=== PATIENT | male | born 1985 | race Two or more races ===

== ENCOUNTER 2023-10-04 10:00 | Outpatient (AMB) | payer OTHER, SELFPAY ==
[2023-10-04 10:21] VITALS: BP 155/84; PULSE 134; O2SAT 97; BMI 31.9
--- NOTE | 2023-10-04 10:21 | A.OFFPC_ITS ---
Vital Signs 10/04/23 10:21 Height 5 ft 7 in Weight 204 lb BMI 31.9 BP 155/84 H Blood Pressure Location Lt brachial Position Sitting Pulse 134 H Pulse Source Pulse Oximeter Pulse Oximetry (%) 97 Oxygen Delivery Method Room Air Intake Visit Reasons: est care Intake Note: Patient is here as a new patient, would like to talk about blood tests, and stomach problems, and rash on ear and face upper partws of the body. 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 Prior PCP:?No prior recent pcp Acute issue(s): Abd. pain - Acid reflux. Sxs Takes malox. Rash HTN & Tachycardia -He notes blood pressure is usually high in the morning but goes down in the evening. -Denies any chest pain. PMHx: HTN, Hepatitis SurgHx: None FHx: Mom: Asthma SocHx: Nonsmoker. EtOH very rarely. No drugs. PFSH Medical History (Updated 10/04/23 @ 11:43 by Anup Vidales) Hypertension Liver problem Family History (Updated 10/04/23 @ 10:41 by Kristin Delatorre [facility]) Mother Asthma Social History Household Members: Family Housing: House Are you a primary anesthesiologist and critical care to a significant other at home: No Do you presently have visiting nurse or other home services: No 75 years or older and lives alone: No Alcohol intake: current Comment: on occasion Patient Tobacco Use Status: Former Tobacco user e-Cigarette/Vaping Use: Never Used service: No Current occupational status: previously employed Cognitive needs: No Hearing needs: No Vision needs: No Review of Systems Const Denies chills, Denies fatigue, Denies fever(s), Denies headache(s) and Denies weakness ENT Denies dizziness and Denies headache(s) Card Denies chest pain, Denies lightheadedness, Denies dyspnea and Denies other (Palpitations) Resp Denies cough, Denies dyspnea, Denies wheezing and Denies other ( shortness of breath) GI Reports abdominal pain Musc Denies numbness and Denies tingling Skin/Breast Reports rash Neuro Denies dizziness, Denies headache(s), Denies numbness, Denies tingling, Denies paresthesias and Denies weakness Psych Denies anxiety and Denies depression Endo Denies fatigue Aller/Immun Denies wheezing Physical exam (Primary Care) Vital Signs: Last Vital Signs Pulse 134 H 10/04/23 10:21 BP 155/84 H 10/04/23 10:21 Pulse Ox 97 10/04/23 10:21 Oxygen Delivery Method Room Air 10/04/23 10:21 BMI result Body Mass Index 31.9 Tobacco/Smoking Status: Tobacco use Status Tobacco use date assessed 10/04/23 10/04/23 10:35 Patient Tobacco Use Status Former Tobacco user 10/04/23 10:45 e-Cigarette/Vaping Use Never Used 10/04/23 10:45 Const General: no acute distress and well developed Nutritional Appearance: well nourished Orientation/consciousness: patient oriented x3 [facility] Head: Yes normocephalic and Yes atraumatic Eyes General: appearance normal, both eyes and all related structures Pupils: Equal, round and reactive pupils present EOM: EOMs intact bilaterally Resp Effort & Inspection: normal respiratory effort Auscultation: clear to auscultation bilaterally Cardio Rate: tachycardic Rhythm: regular rhythm Heart sounds: S1 normal heart sound present, S2 normal heart sound present, no gallops, no murmurs and no rubs Neuro General: patient oriented x3 and gait normal Cranial nerves: Yes Equal, round and reactive pupils present Psych Affect: normal affect Assessment and Plan Assessment & Plan (1) Tachycardia: Code(s): R00.0 - Tachycardia, unspecified Plan: Tachycardia?in?the?120s?and?130s.??Also?sign ificantly?elevated?blood?pressure.?No?chest?pain.??No?shortness?of?breath. EKG?shows?a?sinus?tachycardia?with?left?atrial?enlargement?and?left?ventricular? hypertrophy, incomplete?right?bundle-branch?block. Starting?him?on?metoprolol?for?hypertension?and?rate?control. Referring?him?to?Cardiology (2) Hypertension: Code(s): I10 - Essential (primary) hypertension Plan: Significantly?elevated?blood?pressure?and?patient?notes?that?he?has?been?on?anti hypertensive?medication?in?the?distant?past. Also?has?atrial?enlargement?and?LVH?which?are?likely?secondary?to?this. Start?metoprolol?ER?50mg daily (3) Left ventricular hypertrophy: Code(s): I51.7 - Cardiomegaly Plan: Likely?secondary?to?longstanding?hypertension. Working?on?controlling?his?blood?pressure?and?heart?rate. Referred?to?cardiology (4) Acid reflux: Code(s): K21.9 - Gastro-esophageal reflux disease without esophagitis Plan: Trial?omeprazole (5) Rash: Code(s): R21 - Rash and other nonspecific skin eruption Plan: No?current?rash?but?skin?on?forehead?is?mildly?erythematous?and?dry. Possible?eczema?or?allergic?reaction?to?exposure He?will?let?me?know?if?this?occurs?again Meantime?he?can?use?a?moisturizer?that?has?no?dyes?or?perfumes (6) History of hepatitis: Code(s): Z86.19 - Personal history of other infectious and parasitic diseases Plan: Check?hepatitis?labs?and?LFTs (7) Laboratory exam ordered as part of routine general medical examination: Code(s): Z00.00 - Encounter for general adult medical examination without abnormal findings Plan: Check?labs Orders: Orders Lipid Panel Today Z00.00 - Encounter for general adult medical examination without abnormal findings TSH reflex Free T4 Today Z00.00 - Encounter for general adult medical examination without abnormal findings Vitamin D 25-OH Total Today E55.9 - Vitamin D deficiency, unspecified Hepatitis B,C Profile Today Z11.3 - Encounter for screening for infections with a predominantly sexual mode of transmission Syphilis Screen Today Z11.3 - Encounter for screening for infections with a predominantly sexual mode of transmission CT NG by PCR Today Z11.3 - Encounter for screening for infections with a predominantly sexual mode of transmission Comprehensive [place]. Panel Fast Today Z00.00 - Encounter for general adult medical examination without abnormal findings Microalbumin, Random (w Creat) Today I10 - Essential (primary) hypertension UA and rflx microscopic Today Z00.00 - Encounter for general adult medical examination without abnormal findings HIV Ab/Ag Today Z11.3 - Encounter for screening for infections with a predominantly sexual mode of transmission Troponin-I High Sensitivity Today R00.0 - Tachycardia, unspecified Referrals Cardiology Referral I10 - Essential (primary) hypertension, I51.7 - Cardiomegaly, R00.0 - Tachycardia, unspecified, R94.31 - Abnormal electrocardiogram [ECG] [EKG] Medications: New metoprolol succinate ER 50 mg PO DAILY 30 tabs 2RF 30 days I10 - Essential (primary) hypertension Coding Level of Care Code New Pt Level 4 (27704) Diagnoses Tachycardia R00.0 Hypertension I10 Left ventricular hypertrophy I51.7 Acid reflux K21.9 Rash R21 History of hepatitis Z86.19 Laboratory exam ordered as part of routine general medical examination Z00.00
== END 2023-10-04 11:20 | disposition home or self-care (01) ==
PROVIDERS: PCP Family Medicine; Visit Provider Family Medicine
DX: R00.0 Tachycardia, unspecified (principal); I10 Essential (primary) hypertension; I51.7 Cardiomegaly; K21.9 Gastro-esophageal reflux disease without esophagitis; R21 Rash and other nonspecific skin eruption; Z86.19 Personal history of other infectious and parasitic diseases; Z00.00 Encounter for general adult medical examination without abnormal findings
CPT/HCPCS: 99204

== ENCOUNTER 2023-10-16 09:15 | Outpatient (REF) | payer OTHER, SELFPAY ==
[2023-10-16 10:55] LABS: Troponin-I High Sensitivity < 2.7 ng/L (<3.5-35.0)
[2023-10-16 11:01] LABS: Alanine Aminotransferase 190 U/L (0-40); Albumin Level 4.6 g/dL (3.5-5.0); Alkaline Phosphatase 175 U/L (39-117); Anion Gap 14 (12-20); Aspartate Amino Transferase 166 U/L (5-37); Bilirubin Total 2.8 mg/dL (0.0-1.0); Blood Urea Nitrogen 7 mg/dL (9-16); Calcium 10.4 mg/dL (8.4-10.2); Carbon Dioxide 27 mmol/L (22-29); Chloride 102 mmol/L (96-108); Cholesterol 333 mg/dL (<200); Estimated Glomerular Filt Rate > 60; Glucose Fasting 118 mg/dL (60-99); HDL Cholesterol 21 mg/dL (>40); LDL Cholesterol Calculated 239 mg/dL (<100); Potassium 4.6 mmol/L (3.3-5.1); Sodium 138 mmol/L (135-145); Total Protein 8.4 g/dL (6.5-8.0); Triglycerides 369 mg/dL (<150)
[2023-10-16 11:19] LABS: TSH reflex Free T4 3.06 uIU/mL (0.32-4.0); Vitamin D 25-OH Total 29.2 ng/mL (>30)
[2023-10-16 11:29] LABS: Appearance Urine Clear; Color Urine Dark Yellow; Glucose Urine UA Negative (Negative); Leukocyte Esterase Urine Trace (Negative); Nitrite Urine Positive (Negative); UMIC TRIGGER UA YES; Urine Blood Negative (Negative); Urine Ketones Trace mg/dL (Negative); Urine Protein Negative (Neg-Trace)
[2023-10-16 11:30] LABS: Bacteria Urine None Seen (None Seen); Hyaline Casts Urine 0-2 /LPF (0-2); RBC Urine 0-2 /HPF (0-2); Squamous Epithelial Cell Urine 0-2 /HPF (0-2); WBC Urine 0-5 /HPF (0-5)
[2023-10-16 12:41] LABS: Creatinine Urine 232.26 mg/dL; Microalbum/Creatinine Ratio Ur 5.5 ug/mg cr (<30)
[2023-10-16 15:03] LABS: Syphilis Screen Nonreactive (Nonreactive)
[2023-10-17 08:15] LABS: HBS Num1 0.51 mIU/mL (0-7.99); HBc Num1 0.08 S/CO (0.00-0.79); HBsAGNum1 0.41 S/CO (0.00-0.99); HIV AB/AG Nonreactive (Nonreactive); HIV Num 1 0.04 S/CO (0.00-0.99); Hepatitis B Core Antibody Nonreactive (Nonreactive); Hepatitis B Surface Antigen Negative (Negative); ~HepC Num1 0.14 S/CO (0.00-0.79); ~Hepatitis B Surface Antibody NONREACTIVE (Nonreactive); ~Hepatitis C Antibody Nonreactive (Nonreactive)
[2023-10-23 05:28] LABS: Metanephrine, Free 37 pg/mL (<=57); Normetanephrines, Free 135 pg/mL (<=148); Total Metanephrine, Free 172 pg/mL (<=205)
== END 2023-10-16 09:16 | disposition home or self-care (01) ==
LOC: HO.WFDLDS 09:15
PROVIDERS: Visit Provider Family Medicine
DX: Z00.00 Encounter for general adult medical examination without abnormal findings (principal); R00.0 Tachycardia, unspecified; I10 Essential (primary) hypertension; E55.9 Vitamin D deficiency, unspecified; R30.0 Dysuria; Z11.3 Encounter for screening for infections with a predominantly sexual mode of transmission
CPT/HCPCS: 36415; 80053; 80061; 81001; 82043; 82306; 82570; 83835; 84443; 84484; 86704; 86706; 86780; 86803; 87340; 87389

== ENCOUNTER 2023-10-18 11:24 | Outpatient (AMB) | payer OTHER, SELFPAY ==
--- NOTE | 2023-10-18 11:28 | MHC.PC.OV ---
Vital Signs 10/18/23 11:29 Height 57 ft BP 132/72 Blood Pressure Location Lt brachial Position Sitting Pulse 102 H Pulse Source Pulse Oximeter Pulse Oximetry (%) 98 Oxygen Delivery Method Room Air Intake Visit Reasons: f/u abnormal ekg, labs+ NEEDS PHQ9+THRIVE Intake Note: Patient is here for follow up on labs, abnormal EKG. Clinical Biochemical Geneticist Required: Yes Clinical Biochemical Geneticist Name: Arianna [id number] Allergies No Known Allergies Allergy (Verified 10/04/23 10:33) Tobacco use date assessed: 10/04/23 HPI f/u abnormal ekg, labs+ NEEDS PHQ9+THRIVE HPI Details 38 y/o male presents to f/u tachycardia and hypertension with abnormal EKG, labs. Started him on metoprolol and referred him to Cardiology. Labs were drawn 10/16/23. Reviewed labs with pt. Elevated fasting glucose of 118. Elevated liver enzymes - AST 166 and ALT 190. Triglycerides 369. TC 333. LDL 239. HDL low at 21. Vitamin D mildly low at 29.2. Blood pressure today 132/72, 102p. He states he has been taking metoprolol 50mg daily. [facility] Medical History Hypertension Liver problem Family History Mother Asthma Social History Household Members: Family Housing: House Are you a primary transitional care liaison to a significant other at home: No Do you presently have visiting nurse or other home services: No 75 years or older and lives alone: No Alcohol intake: current Comment: on occasion Patient Tobacco Use Status: Former Tobacco user e-Cigarette/Vaping Use: Never Used service: No Current occupational status: previously employed Cognitive needs: No Hearing needs: No Vision needs: No Questionnaire PHQ-9 Over the last 2 weeks, how often have you been bothered by any of the following problems? 1. Little interest or pleasure in doing things: several days 2. Feeling down, depressed, or hopeless: several days 3. Trouble falling or staying asleep, or sleeping too much: nearly every day 4. Feeling tired or having little energy: several days 5. Poor appetite or overeating: not at all 6. Feeling bad about yourself - or that you are a failure or have let yourself or your family down: not at all 7. Trouble concentrating on things, such as reading the newspaper or watching television: not at all 8. Moving or speaking so slowly that other people could have noticed. Or the opposite - being so fidgety or restless that you have been moving around a lot more than usual: not at all 9. Thoughts that you would be better off or of hurting yourself in some way: not at all Total score: 6 Source: Developed by Drs. Darryn Hernandez, Tammi Mckeon, Pankaj Wallace and colleagues, with an educational ventura from [employer]. Thrive Questionnaire Date Thrive assessed: 10/18/23 I am a: Patient What is your living situation today?: I do not have a steady places to live Within the past 12 months, did the food you bought not last and you didn't have the money to get more?: Never true Within the past 12 months, did you worry whether your food would run out before you got money to buy more?: Never true Do you have trouble paying for medicines?: No Do you have trouble getting transportation to medical appointments?: No Do you have trouble paying your heating and electricity bill?: No Do you have trouble taking care of your child, family member or friend?: No Do you have trouble with day-to-day activities such as bathing, preparing meals, shopping, managing finances, etc.?: No Are you currently unemployed and looking for a job?: Yes Are you interested in more education?: No Review of Systems Const Denies chills, Denies fatigue, Denies fever(s), Denies headache(s) and Denies weakness ENT Denies dizziness and Denies headache(s) Card Denies dyspnea Resp Denies cough, Denies dyspnea, Denies wheezing and Denies other (shortness of breath) Musc Denies numbness and Denies tingling Neuro Denies dizziness, Denies headache(s), Denies numbness, Denies tingling and Denies weakness Psych Denies anxiety and Denies depression Endo Denies fatigue Aller/Immun Denies wheezing Physical exam (Primary Care) Vital Signs: Last Vital Signs Pulse 102 H 10/18/23 11:29 BP 132/72 10/18/23 11:29 Pulse Ox 98 10/18/23 11:29 Oxygen Delivery Method Room Air 10/18/23 11:29 Tobacco/Smoking Status: Tobacco use Status Tobacco use date assessed 10/04/23 10/18/23 11:34 Patient Tobacco Use Status Former Tobacco user 10/18/23 11:34 e-Cigarette/Vaping Use Never Used 10/18/23 11:34 PHQ-9: PHQ-9 Score PHQ-9: Total score 6 10/18/23 12:28 Thrive Assessment: Date of Thrive Assessment Date Thrive assessed 10/18/23 10/18/23 11:54 Const General: well developed; No acute distress Nutritional Appearance: well nourished Orientation/consciousness: patient oriented x3 [facility] Head: Yes normocephalic and Yes atraumatic Eyes General: appearance normal, both eyes and all related structures Pupils: Equal, round and reactive pupils present EOM: EOMs intact bilaterally Resp Effort & Inspection: normal respiratory effort Cardio Rate: tachycardic Neuro General: patient oriented x3 and gait normal Cranial nerves: Yes Equal, round and reactive pupils present Psych Affect: normal affect Assessment and Plan Assessment & Plan (1) Hyperlipidemia: Code(s): E78.5 - Hyperlipidemia, unspecified Plan: LDL?cholesterol?and?triglycerides?are?very?high Encouraged?diet?lower?in?saturated?fats?and?cholesterol Starting?atorvastatin Encouraged?a?diet?lower?in?sugars?as?his?blood?sugars?are?high?and?this?may?be?increasing?his?triglycerides?as?well (2) Elevated liver enzymes: Code(s): R74.8 - Abnormal levels of other serum enzymes (3) Hypertension: Code(s): I10 - Essential (primary) hypertension Plan: Improved on Metoprolol Increasing dose from 50mg daily to 75mg daily (4) Tachycardia: Code(s): R00.0 - Tachycardia, unspecified Plan: Improved on Metoprolol Also checking Holter test & is referred to Cardiology (5) Left ventricular hypertrophy: Code(s): I51.7 - Cardiomegaly Plan: Has referral to Cardiology and has started Metoprolol to control BP (6) Elevated liver enzymes: Code(s): R74.8 - Abnormal levels of other serum enzymes Plan: Check US (7) Sleep apnea: Code(s): G47.30 - Sleep apnea, unspecified Plan: Referred to Sleep Medicine (8) Elevated fasting blood sugar: Code(s): R73.01 - Impaired fasting glucose Plan: Encouraged?a?diet?lower?in?sugars Will?repeat?fasting?blood?sugar If?still?high?will?check?A1c?and?treat?if?necessary. Orders: Orders Comprehensive [place]. Panel Fast Today E78.5 - Hyperlipidemia, unspecified, Z00.00 - Encounter for general adult medical examination without abnormal findings Lipid Panel Today E78.5 - Hyperlipidemia, unspecified, Z00.00 - Encounter for general adult medical examination without abnormal findings US abdomen chand w elastography Today R74.8 - Abnormal levels of other serum enzymes ECG holter monitor 48 hour Today E78.5 - Hyperlipidemia, unspecified Referrals Sleep Medicine Referral G47.30 - Sleep apnea, unspecified Medications: New atorvastatin 80 mg PO BEDTIME 30 days 30 tabs 3RF Changed From metoprolol succinate ER 50 mg PO DAILY 30 days 30 tabs 2RF To metoprolol succinate ER 50mg (1tab) AM and 25mg (1/2 tab) PM orally 2 times a day; 30 days 45 tabs 2RF Coding Level of Care Code Est Pt Level 5 (13274) Diagnoses Hyperlipidemia E78.5 Elevated liver enzymes R74.8 Hypertension I10 Tachycardia R00.0 Left ventricular hypertrophy I51.7 Sleep apnea G47.30 Elevated fasting blood sugar R73.01
[2023-10-18 11:29] VITALS: BP 132/72; PULSE 102; O2SAT 98
== END 2023-10-18 13:05 | disposition home or self-care (01) ==
PROVIDERS: PCP Family Medicine; Visit Provider Family Medicine
DX: E78.5 Hyperlipidemia, unspecified (principal); R74.8 Abnormal levels of other serum enzymes; I10 Essential (primary) hypertension; R00.0 Tachycardia, unspecified; I51.7 Cardiomegaly; G47.30 Sleep apnea, unspecified; R73.01 Impaired fasting glucose
CPT/HCPCS: 99214

== ENCOUNTER 2023-11-23 08:43 | Outpatient (REF) | payer OTHER, SELFPAY ==
--- NOTE | ~2023-11-23 | US_ITS ---
EXAMINATION: US ABDOMEN LIMITED WITH LIVER ELASTOGRAPHY CLINICAL INFORMATION: Abnormal serum enzymes. COMPARISON: None available. TECHNIQUE: Real-time imaging of the abdominal viscera. Noninvasive ultrasound liver fibrosis assessment is performed using Ted ElastPQ point quantification shear wave elastography (2D-SWE) with a C5-2 MHz transducer. Multiple elastography samples are obtained. FINDINGS: PANCREAS: Limited. The visualized pancreatic head and body are normal in appearance. The remainder of the pancreas is obscured from visualization by the overlying bowel gas. LIVER: The liver demonstrates normal size, contour and is increased echogenicity. No focal lesion or intrahepatic biliary duct dilatation. The right lobe measures 17.4 cm in length. The left lobe measures 12.3 cm in length. Portal flow is towards the liver (hepatopetal). Shear wave liver elastography median stiffness is 2.13 m/s (reference: normal median stiffness is 1.3 m/s or less). IQR/median stiffness to assess sampling precision is 0.15 (reference: good quality data set is IQR/median stiffness of 0.15 or less). GALLBLADDER: Normal. The gallbladder is physiologically distended without evidence of stones, sludge, polyps, wall thickening or pericholecystic fluid. COMMON BILE DUCT: Borderline dilated, measuring 0.8 cm in diameter. RIGHT KIDNEY: Normal. No hydronephrosis. No renal calculi or focal parenchymal lesions. The kidney measures 11.3 cm in maximum dimension. FREE FLUID: None. US/US abdomen chand w elastography IMPRESSION: 1. There is generalized increase in hepatic echotexture, consistent with fatty infiltration or hepatocellular disease. Please correlate clinically. No focal hepatic mass or intrahepatic biliary dilatation is seen. 2. Liver elastography: Measuremensts are consistent with compensated advanced chronic liver disease. 3. The common bile duct is borderline dilated, with a caliber of 8 mm. No choledocholith, intrahepatic biliary ductal dilatation or pancreatic mass is seen. This could be further evaluated with abdominal MRI/MRCP, if clinically indicated. 4. Technically limited ultrasound examination of the pancreatic tail. REFERENCE: Society of Radiologists in Ultrasound Liver Stiffness Thresholds (2020): LIVER STIFFNESS THRESHOLDS: *Liver Stiffness equal or less than 1.3 m/s: High probability of being normal. *Liver Stiffness less than 1.7 m/s: In the absence of other known clinical signs, rules out compensated advanced chronic liver disease. *Liver Stiffness 1.7-2.1 m/s: Suggestive of compensated advanced chronic liver disease but need further test for confirmation. *Liver Stiffness over 2.1 m/s: Rules in compensated advanced chronic liver disease. *Liver Stiffness over 2.4 m/s: Suggestive of clinically significant portal hypertension. QUALITY OF DATA SET: *IQR/Median value equal or less than 0.15 implies a quality data set. *IQR/Median value over 0.15 implies a poor quality data set. SIGNIFICANT CHANGE FROM PRIOR EXAM: Significant change if liver stiffness measurement is 10% or greater from prior exam. OTHER CONSIDERATIONS: The stage of liver fibrosis may be overestimated in the setting of acute hepatitis, liver inflammation, elevated liver function tests, hepatic vascular congestion, obstructive cholestasis, non-fasting state, and infiltrative diseases such as amyloidosis and lymphoma. In some patients with NAFLD, the liver stiffness thresholds for compensated advanced chronic liver disease may be lower. In causes other than viral hepatitis and NAFLD, liver stiffness thresholds are not well established.
[2023-11-23 09:28] LABS: Appearance Urine Clear; Color Urine Yellow; Glucose Urine UA Negative (Negative); Leukocyte Esterase Urine Negative (Negative); Nitrite Urine Negative (Negative); PH 5.5 (5.0-9.0); Specific Gravity - Urine 1.015 (1.005-1.025); Urine Blood Negative (Negative); Urine Ketones Negative (Negative); Urine Protein Negative (Neg-Trace)
[2023-11-23 09:52] LABS: Alanine Aminotransferase 79 U/L (0-40); Albumin Level 4.6 g/dL (3.5-5.0); Alkaline Phosphatase 153 U/L (39-117); Anion Gap 11 (12-20); Aspartate Amino Transferase 47 U/L (5-37); Bilirubin Total 0.8 mg/dL (0.0-1.0); Blood Urea Nitrogen 10 mg/dL (9-16); Carbon Dioxide 28 mmol/L (22-29); Chloride 106 mmol/L (96-108); Cholesterol 123 mg/dL (<200); Estimated Glomerular Filt Rate > 60; Glucose Fasting 97 mg/dL (60-99); HDL Cholesterol 51 mg/dL (>40); LDL Cholesterol Calculated 31 mg/dL (<100); Potassium 4.4 mmol/L (3.3-5.1); Sodium 141 mmol/L (135-145); Total Protein 8.1 g/dL (6.5-8.0); Triglycerides 205 mg/dL (<150)
== END 2023-11-23 08:44 | disposition home or self-care (01) ==
LOC: HO.US 08:43
PROVIDERS: Visit Provider Family Medicine
DX: E78.5 Hyperlipidemia, unspecified (principal); R74.8 Abnormal levels of other serum enzymes; Z00.00 Encounter for general adult medical examination without abnormal findings
CPT/HCPCS: 36415; 76705; 76981; 80053; 80061; 81003

== ENCOUNTER 2023-11-29 09:21 | Outpatient (AMB) | payer OTHER, SELFPAY ==
[2023-11-29 09:28] VITALS: BP 128/76; PULSE 81; O2SAT 97
--- NOTE | 2023-11-29 09:28 | MHC.PC.OV ---
Vital Signs 11/29/23 09:28 Height 5 ft 7 in BP 128/76 Blood Pressure Location Rt brachial Pulse 81 Pulse Source Pulse Oximeter Pulse Oximetry (%) 97 Oxygen Delivery Method Room Air Intake Visit Reasons: f/u htn,tachycardia,chronic conditions Intake Note: Patient is here for follow up on hypertension, tachycardia, and chronic conditions. Drywall Applicator Required: Yes Drywall Applicator Name: Kale [id number] Allergies No Known Allergies Allergy (Verified 11/29/23 09:41) Tobacco use date assessed: 11/29/23 Dental Screening Dental Screen Date: 11/29/23 Did you have a dental visit in the last 12 months?: Yes Did you have a dental problem in the last 6 months where you did not have access to dental care?: No Was dental information given to patient?: Patient has dentist HPI f/u htn,tachycardia,chronic conditions HPI Details 38 y/o male presents to f/u hypertension, tachycardia and chronic conditions. Had started him on artovastatin and metoprolol. Blood pressure today 128/76, 81p. Labs were drawn 11/23/23. Elevated liver enzymes but improved - AST 47, ALT 79. Triglycerides 205. TC 123. LDL improved from 239 to 31. HDL 51. PFSH Medical History Hypertension Liver problem Family History Mother Asthma Social History Household Members: Family Housing: House Are you a primary home care associate to a significant other at home: No Do you presently have visiting nurse or other home services: No 75 years or older and lives alone: No Alcohol intake: current Comment: on occasion Patient Tobacco Use Status: Former Tobacco user e-Cigarette/Vaping Use: Never Used service: No Current occupational status: previously employed Cognitive needs: No Hearing needs: No Vision needs: No Questionnaire Thrive Questionnaire Date Thrive assessed: 10/18/23 AUDIT C Alcohol Use Questionnaire (AUDIT-C) 1. How often do you have a drink containing alcohol?: Monthly or less 2. How many drinks containing alcohol do you have on a typical day when you are drinking?: 3 or 4 3. How often do you have six or more drinks on one occasion?: Never Total Score: 2 IAN-7 AMB Questionnaire IAN-7 Date IAN - 7 assessed: 11/29/23 Feeling nervous, anxious, or on edge: 1 = Several days Not being able to stop or control worryin = Several days Worrying too much about different things: 0 = Not at all Trouble relaxin = Several days Being so restless that it is hard to sit still: 0 = Not at all Becoming easily annoyed or irritable: 0 = Not at all Feeling afraid as if something awful might happen: 0 = Not at all Total IAN-7 score (0-4 normal; 5-9 mild; 10-14 moderate; 15-21 severe): 3 Source: Developed by Drs. Darryn Hernandez, Tammi Mckeon, Pankaj Wallace and colleagues, with an educational ventura from [employer]. Physical exam (Primary Care) Vital Signs: Last Vital Signs Pulse 81 11/29/23 09:28 BP 128/76 11/29/23 09:28 Pulse Ox 97 11/29/23 09:28 Oxygen Delivery Method Room Air 11/29/23 09:28 Tobacco/Smoking Status: Tobacco use Status Tobacco use date assessed 11/29/23 11/29/23 09:44 Patient Tobacco Use Status Former Tobacco user 11/29/23 09:31 e-Cigarette/Vaping Use Never Used 11/29/23 09:31 Thrive Assessment: Date of Thrive Assessment Date Thrive assessed 10/18/23 11/29/23 09:31 Assessment and Plan Assessment & Plan (1) Hypertension: Code(s): I10 - Essential (primary) hypertension Plan: Pressure?is?much?improved?on?current?regimen?of?metoprolol.??Goal?is?less?than?140/90. Continue?current?medication?regimen (2) Left ventricular hypertrophy: Code(s): I51.7 - Cardiomegaly Plan: Continue?to?keep?blood?pressure?controlled Follow-up?with?Cardiology (3) Elevated liver enzymes: Code(s): R74.8 - Abnormal levels of other serum enzymes Plan: Liver?enzymes?are?improving.??I?encouraged?weight?loss. Ultrasound?had?shown?evidence?of?fatty?liver Will?recheck?again?in?a?few?months (4) Hyperlipidemia: Code(s): E78.5 - Hyperlipidemia, unspecified Plan: Much?improved?on?atorvastatin Continue?current?medication?regimen (5) Tachycardia: Code(s): R00.0 - Tachycardia, unspecified Plan: Controlled?with?metoprolol Continue (6) Low vitamin D level: Code(s): R79.89 - Other specified abnormal findings of blood chemistry Plan: Mildly?low?vitamin-D?level. He?can?use?a?daily?vitamin?supplement?that?has?vitamin-D. Orders: Orders Comprehensive [place]. Panel Fast Today R74.8 - Abnormal levels of other serum enzymes, Z00.00 - Encounter for general adult medical examination without abnormal findings Lipid Panel Today E78.5 - Hyperlipidemia, unspecified, Z00.00 - Encounter for general adult medical examination without abnormal findings Coding Level of Care Code Est Pt Level 4 (84810) Diagnoses Hypertension I10 Left ventricular hypertrophy I51.7 Elevated liver enzymes R74.8 Hyperlipidemia E78.5 Tachycardia R00.0 Low vitamin D level R79.89
== END 2023-11-29 10:45 | disposition home or self-care (01) ==
PROVIDERS: PCP Family Medicine; Visit Provider Family Medicine
DX: I10 Essential (primary) hypertension (principal); I51.7 Cardiomegaly; R74.8 Abnormal levels of other serum enzymes; E78.5 Hyperlipidemia, unspecified; R00.0 Tachycardia, unspecified; R79.89 Other specified abnormal findings of blood chemistry
CPT/HCPCS: 99214

== ENCOUNTER 2024-02-27 12:05 | Outpatient (REF) | payer OTHER, SELFPAY ==
[2024-02-27 13:08] LABS: Alanine Aminotransferase 367 U/L (0-40); Albumin Level 4.7 g/dL (3.5-5.0); Alkaline Phosphatase 240 U/L (39-117); Anion Gap 12 (12-20); Aspartate Amino Transferase 323 U/L (5-37); Bilirubin Total 2.7 mg/dL (0.0-1.0); Blood Urea Nitrogen 5 mg/dL (9-16); Calcium 10.2 mg/dL (8.4-10.2); Carbon Dioxide 32 mmol/L (22-29); Chloride 102 mmol/L (96-108); Cholesterol 177 mg/dL (<200); Estimated Glomerular Filt Rate > 60; Glucose Fasting 127 mg/dL (60-99); HDL Cholesterol 29 mg/dL (>40); LDL Cholesterol Calculated 101 mg/dL (<100); Potassium 4.3 mmol/L (3.3-5.1); Sodium 142 mmol/L (135-145); Total Protein 8.3 g/dL (6.5-8.0); Triglycerides 237 mg/dL (<150)
== END 2024-02-27 12:06 | disposition home or self-care (01) ==
LOC: HO.LAB 12:05
PROVIDERS: PCP Family Medicine; Visit Provider Family Medicine
DX: Z00.00 Encounter for general adult medical examination without abnormal findings (principal); E78.5 Hyperlipidemia, unspecified; R74.8 Abnormal levels of other serum enzymes
CPT/HCPCS: 36415; 80053; 80061

== ENCOUNTER 2024-02-28 10:55 | Outpatient (AMB) | payer OTHER, SELFPAY ==
[2024-02-28 11:01] VITALS: BP 132/84; PULSE 97; O2SAT 98; BMI 32.6
--- NOTE | 2024-02-28 11:01 | MHC.PC.OV ---
Vital Signs 02/28/24 11:01 Height 5 ft 7 in Weight 208 lb BMI 32.6 BP 132/84 Blood Pressure Location Lt brachial Position Sitting Pulse 97 Pulse Source Pulse Oximeter Pulse Oximetry (%) 98 Oxygen Delivery Method Room Air Intake Visit Reasons: f/u elev liver enzymes and hypercholesterolemia Intake Note: Patient is here for follow up on liver enzymes and hypercholeterolemia. Patient is concerned about his stomach, heartburn sensation and is wondering about his pancreas Habilitation Training Specialist Required: Yes Habilitation Training Specialist Language: Northern Irish Habilitation Training Specialist Name: Arianna Allergies No Known Allergies Allergy (Verified 02/28/24 11:06) Tobacco use date assessed: 02/28/24 Dental Screening Dental Screen Date: 11/29/23 HPI f/u elev liver enzymes and hypercholesterolemia HPI Details 39 y/o male presents to f/u elevated liver enzymes, hypercholesterolemia, hypertension and tachycardia. Had recommended weight loss and per pt had an appt. with Cardiology in December. Labs were drawn 02/27/24. Reviewed labs with pt. Elevated fasting glucose of 127. Liver enzymes elevated - AST 323, ALT 367. Triglycerides 237. TC 177. LDL 101. HDL low at 29. He is on artovastatin 80mg. Blood pressure today 132/84. He is on metoprolol. He has an appt. with cardiology in about 5 days. HPI Comments History of Present Illness Details Documentation assistance for Denys Arroyo MD, was provided by Anup Vidales, [employer] on 02/28/2024 11:17 AM EST. I, Dr. Arroyo, have read, observed, and verified documentation. 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 Darryn Hernandez, Tammi Mckeon, Pankaj Wallace and colleagues, with an educational vent[place] from [employer] [place]. Review of Systems Const Denies chills, Denies fatigue, Denies fever(s), Denies headache(s) and Denies weakness ENT Denies dizziness and Denies headache(s) Card Denies chest pain, Denies lightheadedness, Denies dyspnea and Denies other (Palpitations) Resp Denies cough, Denies dyspnea, Denies wheezing and Denies other ( shortness of breath) Musc Denies numbness and Denies tingling Neuro Denies dizziness, Denies headache(s), Denies numbness, Denies tingling, Denies paresthesias and Denies weakness Psych Denies anxiety and Denies depression Endo Denies fatigue Aller/Immun Denies wheezing Physical exam (Primary Care) Vital Signs: Last Vital Signs Pulse 97 02/28/24 11:01 BP 132/84 02/28/24 11:01 Pulse Ox 98 02/28/24 11:01 Oxygen Delivery Method Room Air 02/28/24 11:01 BMI result Body Mass Index 32.6 Tobacco/Smoking Status: Tobacco use Status Tobacco use date assessed 02/28/24 02/28/24 11:13 Patient Tobacco Use Status Former Tobacco user 02/28/24 11:03 e-Cigarette/Vaping Use Never Used 02/28/24 11:03 Thrive Assessment: Date of Thrive Assessment Date Thrive assessed 10/18/23 02/28/24 11:03 Const General: no acute distress and well developed Nutritional Appearance: well nourished Orientation/consciousness: patient oriented x3 HENMT Head: Yes normocephalic and Yes atraumatic Eyes General: appearance normal, both eyes and all related structures Pupils: Equal, round and reactive pupils present EOM: EOMs intact bilaterally Resp Effort & Inspection: normal respiratory effort Auscultation: clear to auscultation bilaterally Cardio Rate: regular rate Rhythm: regular rhythm Heart sounds: S1 normal heart sound present, S2 normal heart sound present, no gallops, no murmurs and no rubs Neuro General: patient oriented x3 and gait normal Cranial nerves: Yes Equal, round and reactive pupils present Psych Affect: normal affect Assessment and Plan Assessment & Plan (1) Elevated liver enzymes: Code(s): R74.8 - Abnormal levels of other serum enzymes Plan: Significant?increases?in?liver?enzymes Denies?alcohol?use No?abdominal?pain. Referred?patient?to?gastroenterology Rechecking?lab?work?including?liver?panel.??Also?lipase?level. (2) Hyperlipidemia: Code(s): E78.5 - Hyperlipidemia, unspecified Plan: LDL?much?improved.??Will?decrease?atorvastatin?from?80?mg?daily?to?40?mg?daily Triglycerides?are?still?high?but?have?decreased (3) Hypertension: Code(s): I10 - Essential (primary) hypertension Plan: Blood?pressure?is?controlled.??Goal?is?less?than?140/90 Continue?current?medication (4) Elevated fasting blood sugar: Code(s): R73.01 - Impaired fasting glucose Plan: Rising?liver?enzymes?and?alk-phos. Concern?for?common?or?pancreatic?duct?obstruction Will?continue?to?follow Checking?A1c?with?next?set?of?labs (5) Acid reflux: Code(s): K21.9 - Gastro-esophageal reflux disease without esophagitis Plan: Omeprazole He?is?referred?to?GI Orders: Orders Comprehensive Met. Panel Today R74.8 - Abnormal levels of other serum enzymes Lipase Today R74.8 - Abnormal levels of other serum enzymes Gamma Glutamyl Transpeptidase Today R74.8 - Abnormal levels of other serum enzymes Hemoglobin A1c 1 Month R73.01 - Impaired fasting glucose Alkaline Phosphatase Today R74.8 - Abnormal levels of other serum enzymes Comprehensive [place]. Panel Fast 1 Month E78.5 - Hyperlipidemia, unspecified, Z00.00 - Encounter for general adult medical examination without abnormal findings Lipid Panel 1 Month E78.5 - Hyperlipidemia, unspecified, Z00.00 - Encounter for general adult medical examination without abnormal findings Liver Panel Today R74.8 - Abnormal levels of other serum enzymes Referrals Gastroenterology Referral R74.8 - Abnormal levels of other serum enzymes, Z86.19 - Personal history of other infectious and parasitic diseases Medications: New omeprazole 20 mg PO DAILY 30 days 30 caps 1RF Changed From atorvastatin 80 mg PO BEDTIME 30 days 30 tabs 3RF To atorvastatin 40 mg PO BEDTIME 30 days 30 tabs 3RF Coding Level of Care Code Est Pt Level 4 (12329) Diagnoses Elevated liver enzymes R74.8 Hyperlipidemia E78.5 Hypertension I10 Elevated fasting blood sugar R73.01 Acid reflux K21.9
== END 2024-02-28 11:39 | disposition home or self-care (01) ==
PROVIDERS: PCP Family Medicine; Visit Provider Family Medicine
DX: R74.8 Abnormal levels of other serum enzymes (principal); E78.5 Hyperlipidemia, unspecified; I10 Essential (primary) hypertension; R73.01 Impaired fasting glucose; K21.9 Gastro-esophageal reflux disease without esophagitis
CPT/HCPCS: 99214

== ENCOUNTER 2024-02-28 11:52 | Outpatient (REF) | payer OTHER, SELFPAY ==
[2024-02-28 15:23] LABS: Estimated Average Glucose 111 mg/dL; Hemoglobin A1c % 5.5 % (<6.0)
[2024-02-28 15:38] LABS: Alanine Aminotransferase 281 U/L (0-40); Albumin Level 4.6 g/dL (3.5-5.0); Alkaline Phosphatase 199 U/L (39-117); Anion Gap 13 (12-20); Aspartate Amino Transferase 212 U/L (5-37); Bilirubin Direct 1.2 mg/dL (0.0-0.5); Bilirubin Total 2.5 mg/dL (0.0-1.0); Blood Urea Nitrogen 5 mg/dL (9-16); Calcium 10.1 mg/dL (8.4-10.2); Carbon Dioxide 28 mmol/L (22-29); Chloride 101 mmol/L (96-108); Cholesterol 153 mg/dL (<200); Estimated Glomerular Filt Rate > 60; Gamma Glutamyl Transpeptidase 1804 U/L (11-51); Glucose Fasting 122 mg/dL (60-99); Glucose Random 122 mg/dL (60-115); HDL Cholesterol 35 mg/dL (>40); LDL Cholesterol Calculated 92 mg/dL (<100); Lipase 31 U/L (8-78); Potassium 4.4 mmol/L (3.3-5.1); Sodium 138 mmol/L (135-145); Total Protein 8.1 g/dL (6.5-8.0); Triglycerides 132 mg/dL (<150)
== END 2024-02-28 11:53 | disposition home or self-care (01) ==
LOC: HO.WFDLDS 11:52
PROVIDERS: Visit Provider Family Medicine
DX: Z00.00 Encounter for general adult medical examination without abnormal findings (principal); E78.5 Hyperlipidemia, unspecified; R73.01 Impaired fasting glucose; R74.8 Abnormal levels of other serum enzymes
CPT/HCPCS: 36415; 80053; 80061; 82248; 82977; 83036; 83690

== ENCOUNTER 2024-03-04 12:48 | Outpatient (AMB) | payer OTHER, SELFPAY ==
--- NOTE | 2024-03-04 12:56 | MHC.OFFVIS ---
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 Intake Note: New patient abnormal ekg and tachycardia c/o waking up at night with high heart rate and burning in chest Rocket Propellant Plant Supervisor Required: Yes Rocket Propellant Plant Supervisor Name: Tammi rush Allergies No Known Allergies Allergy (Verified 02/28/24 11:06) Medication List - Last Reconciled 03/04/24 by Sachin Suarez MD atorvastatin 40 mg PO BEDTIME 30 days cholecalciferol (vitamin D3) 50 mcg PO DAILY metoprolol succinate ER 50mg (1tab) AM and 25mg (1/2 tab) PM orally 2 times a day; 30 days omeprazole 20 mg PO DAILY 30 days HPI Comments Details: Bridget was referred here for evaluation of chest discomfort and rapid heart rate. History was obtained with help of professor of exercise science and despite the professor of exercise science patient is not a very good historian. He said for about 3-4 years he has been having burning chest discomfort in the left precordial area radiating to the back and to the neck area. Symptoms can happen any time. Usually starts in his epigastric area and radiates up to his throat. He said the symptoms are very intense. He said the symptoms are not related to exertion but he has not very clear about it. Despite asking multiple ways he has not able to describe his symptoms. However symptoms have been sporadic and is not got the symptoms for about a month. He says symptoms can last anywhere from half an hour to an hour. Sometimes he said that the symptoms resolved after he has been walking. Symptoms are not related to the meals. He also has been getting symptoms of palpitations mostly happening at nighttime wakes him up from sleep. Difficult to obtain again history. Symptoms have been present but since starting metoprolol his symptoms have improved. He was also noted to have elevated blood pressure which have also improved with metoprolol therapy. His TSH at that time was within normal limits. His LDL is noted to be elevated improved with dietary intervention from 177 mg/dL to 153 mg/dL. He denies any substance abuse. He tends to have some anxiety issues. 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 Cognitive needs: No Hearing needs: No Vision needs: No Review of Systems Const Denies chills, Denies daytime sleepiness, Denies fatigue, Denies fever(s), Denies frequent falls, Denies poor appetite, Denies snoring, Denies stops breathing during sleep, Denies weakness, Denies weight gain and Denies weight loss Eyes Denies loss of vision ENT Denies dizziness and Denies hearing loss Card Denies chest pain, Denies claudication, Denies leg edema, Denies lightheadedness, Denies palpitations, Denies dyspnea, Denies dyspnea on exertion and Denies orthopnea Resp Denies cough, Denies excessive phlegm production, Denies dyspnea, Denies dyspnea on exertion, Denies snoring and Denies wheezing GI Denies abdominal pain, Denies hematochezia, Denies change in bowel habits, Denies nausea and Denies vomiting Denies dysuria and Denies urinary frequency Musc Denies arthralgias, Denies muscle weakness, Denies numbness and Denies other (frequent falls) Skin/Breast Denies nail changes and Denies rash Neuro Denies Abnormal speech present, Denies dizziness, Denies frequent falls, Denies loss of vision, Denies memory loss, Denies numbness and Denies weakness Psych Denies depression and Denies memory loss Endo Denies fatigue and Denies palpitations Mando/Lymph Reports easy bruising and Reports other (anemia) Aller/Immun Denies wheezing Physical Exam Vital Signs: Last Vital Signs Pulse 77 03/04/24 12:58 BP 134/78 03/04/24 12:58 BMI result Body Mass Index 32.8 Const General: cooperative, comfortable, no acute distress, well developed, alert, awake and Physically active Nutritional Appearance: average body habitus and well nourished Orientation/consciousness: patient oriented x3 Limitations: no limitations HEENT Head: Yes normocephalic and Yes atraumatic Neck Neck: Yes trachea midline, Yes supple and Yes no JVD Resp Effort & Inspection: normal respiratory effort Auscultation: clear to auscultation bilaterally Cardio Jugular venous distension: no JVD Palpation: normal PMI Rate: regular rate Rhythm: regular rhythm Heart sounds: S1 normal heart sound present, S2 normal heart sound present, no click, no gallops, no murmurs and no rubs GI Auscultation: normal bowel sounds Skin General skin exam: no rashes or lesions noted Neuro General: patient oriented x3 and no focal motor deficits Speech: No Abnormal speech present Extrem General: Yes no clubbing, cyanosis or edema Psych Appearance: grossly normal Affect: Anxious affect present Office Procedures EKG Details: EKG shows normal sinus rhythm with incomplete right bundle-branch block otherwise normal EKG at 77 beats per minute [id number], Complete Assessment & Plan Assessment & Plan (1) Atypical chest pain: Code(s): R07.89 - Other chest pain Plan: Atypical chest pain this is young man with history of hyperlipidemia hypertension. Symptoms highly suggestive of acid reflux disease or gallbladder disease. Myocardial ischemia is less likely. Discuss this with him. Will suggest a treadmill stress test to evaluate for the same although to rule out this etiology. This will be scheduled in near future. (2) Palpitations: Code(s): R00.2 - Palpitations Plan: Palpitations most likely related sinus tachycardia question related to anxiety. The symptoms have improved on metoprolol therapy. Continue the same. Advised to to continue metoprolol therapy given his slightly elevated blood pressure increased to 50 mg b.i.d.. Will check plasma metanephrine levels for completion sake. His TSH is within normal limits. Will suggest a Holter monitor to assess for presence of any other alternative arrhythmias such as SVT and/or atrial fibrillation. This will be scheduled in near future. Avoidance of stimulants such as his caffeine and alcohol was discussed. Stress mitigation strategies advised. (3) Hypertension: Code(s): I10 - Essential (primary) hypertension Category: Medical Plan: Hypertension young age. Advised dietary modification with low-salt diet. Advise increase fluid intake. Blood pressure is better controlled at this point time with the metoprolol therapy. Will further maximize metoprolol to 50 mg b.i.d. for better control of blood pressure. Stress mitigation strategies. Plasma metanephrine should be ordered. Echocardiogram to assess for left ventricular hypertrophy and any other cardiac abnormality. Follow up in the clinic in 6 weeks time, sooner p.r.n.. Thank you for allowing me to partake in his care Coding Level of Care Code New Pt Level 4 (28274) Diagnoses Atypical chest pain R07.89 Palpitations R00.2 Hypertension I10 CPT Codes EKG - CPT: 77625-[id number], Complete ([id number])
[2024-03-04 12:58] VITALS: BP 134/78; PULSE 77; BMI 32.8
== END 2024-03-04 13:41 | disposition home or self-care (01) ==
PROVIDERS: PCP Family Medicine; Visit Provider Internal Medicine Cardiovascular Disease
DX: R07.89 Other chest pain (principal); R00.2 Palpitations; I10 Essential (primary) hypertension
CPT/HCPCS: 93010; 99204

== ENCOUNTER → 2024-03-04 12:48 | Outpatient (BNVA) | payer OTHER, SELFPAY | PROVIDERS: PCP Family Medicine; Visit Provider Internal Medicine Cardiovascular Disease | DX: I10 Essential (primary) hypertension (principal); R00.0 Tachycardia, unspecified; R00.2 Palpitations; R07.89 Other chest pain | CPT/HCPCS: 93005; 99202 ==

== ENCOUNTER → 2024-03-25 08:10 | Outpatient (REF) | payer OTHER, SELFPAY ==
--- NOTE | 2024-03-25 08:14 | CA_ITS ---
Transthoracic Echocardiogram Patient (Last, First, Middle): Bridget Nath, Gender: Male Date of : 1985 Age: 39 Procedure Date: 03/25/2024 Procedure Type: Transthoracic Echocardiogram Location: OP Height: 185.42 cm Weight: 91.63 kg BSA: 2.16 m2 Heart Rate: bpm BP: 124 / 70 mmHg Tile Helper: Referring MD: Sachin Suarez MD Symptoms: I10 - Essential (primary) hypertension Study Quality: Adequate ECG Rhythm: Sinus Conclusions: - The left ventricular systolic function is normal. The calculated ejection fraction is 54% by biplane method. - No obvious valvular pathology seen on this study. Findings Left Ventricle Normal left ventricular cavity size. There is normal left ventricular wall thickness. The left ventricular systolic function is normal. The calculated ejection fraction is 54% by biplane method. There is no evidence of regional wall motion abnormalities. Diastolic function is normal for age. Right Ventricle Normal right ventricular cavity size and systolic function. Atria Both atria are normal in size. Aortic Valve There is a normal trileaflet aortic valve. There is no aortic valve stenosis. There is no aortic valve regurgitation. Mitral Valve The mitral valve appears normal. There is trace mitral valve regurgitation. There is no mitral valve stenosis. Pulmonic Valve The pulmonic valve is likely normal. Tricuspid Valve Normal tricuspid valve structure. There is trace tricuspid valve regurgitation. There is no evidence of pulmonary hypertension. Great Vessels The asc aorta is normal in size. Venous The inferior vena cava is normal in size and collapses greater than 50% with inspiration. Pericardium/Pleural There is no evidence of pericardial effusion. Prior Study Comparison No prior study available for comparison. Recommendations, Care & Conclusions No obvious valvular pathology seen on this study. Measurements 2D Linear Measurements IVSd: 0.90 0.6-0.9/0.6-1.0 cm LVIDd: 5.16 3.9-5.3/4.2-5.9 cm LVIDd Index: 2.39 2.4-3.2/2.2-3.1 cm/m2 LVIDs: 2.93 2.0-3.6 cm LVPWd: 0.96 0.7-1.1 cm Ao Root: 3.30 2.1-3.5 cm LA Diam: 3.80 2.7-3.8/3.0-4.0 cm LAIDs Index: 1.76 1.5-2.3 cm/m2 LV Mass: 216.90 67-162/88-224 g LV Mass Index: 100.42 43-95/49-115 g/m2 LVOT Diam: 2.20 3.0+(-)1.3 cm 2D Systolic Function EF 4C: 52.20 >55% EF 2C: 55.80 >55% EF BiP: 54.00 >55% Mitral Valve MV Pk E: 0.80 MV PK A: 0.53 MV Decel Time: 211.00 E/A: 1.50 E'Lateral: 18.20 E'Medial: 10.10 E/E' Med: 7.90 E/E' Lat: 4.40 PHT: 62.00 MVA PHT: 3.55 Decel Moore: 3.77 Aortic Valve AoV Pk Walker: 1.29 AoV Pk Grad: 7.00 LVOT LVOT Pk Walker: 0.93 LVOT Mn Walker: 0.57 LVOT VTI: 0.21 LVOT Pk Grad: 3.00 LVOT Mn Grad: 2.00 LVOT Diam: 2.20 LVOT Area: 3.80 Diastolic Function MV Pk E: 0.80 MV Pk A: 0.53 E/A: 1.50 E'Medial: 10.10 E/E' Med: 7.90 E' Laterial: 18.20 E/E' Lat: 4.40 Right Ventricle TAPSE (mm): 26.00 TVS' Walker: 14.00 Tricuspid Valve TR Pk Walker: 1.97 TR Pk Grad: 16.00 RA Press: 3.00 RVSP: 19.00 Great Vessels Aorta Ao Root-2D: 3.30 2.0-3.7 cm Ao Asc: 2.70 2.1-3.4 cm Pulmonary Valve PV Pk Walker: 0.92 Peak PV Grad: 3.00 Updated in Other Vendor System with Status of Final Dustin Lares MD electronically signed on 03/25/2024 12:02:05 PM with status of Final
--- NOTE | 2024-03-25 08:14 | CA_ITS ---
Acquisition Time: 2024-03-25 08:53:46 Total Exercise Time: 00:11:05 Test Indications: Chest Pain Medications: ATORVASTATIN METOPROLOL OMEPRAZOLE Protocol: DORITA Max HR: 171 BPM 93% of Pred: 183 BPM Max BP: 154/084 mmHG Max Work Load: 13.4 METS Exercise stress test exercise 11 min 5 sec of Dorita protocol achieving 93% MPHR, with 3-4/10 chest pain, mild SOB, without arrhythmias, with normotensive response to exericse, without EKG changes. Chest pain resolved with rest. Test reviewed with Dr. Pickard. Referred By: Sachin Suarez Overread By: Nicki Bentley
--- NOTE | 2024-03-25 08:14 | HM_ITS ---
Conclusion: 1. Baseline was normal sinus rhythm with average heart rate of 80 beats per minute 2. No significant pauses or arrhythmias noted 3. Patient marked the counter 1 time without associated symptoms in the diary correlating with sinus rhythm MTDD
== END ==
LOC: HO.CARD 08:10
PROVIDERS: PCP Family Medicine; Visit Provider Internal Medicine Cardiovascular Disease
DX: R07.89 Other chest pain (principal); R00.2 Palpitations; R78.5 Finding of other psychotropic drug in blood; I10 Essential (primary) hypertension
CPT/HCPCS: 93017; 93225; 93306

== ENCOUNTER → 2024-03-25 08:14 | Outpatient (BNV) | payer OTHER, SELFPAY | PROVIDERS: PCP Family Medicine; Visit Provider Internal Medicine | DX: R00.2 Palpitations (principal) | CPT/HCPCS: 93016; 93018; 93227; 93350 ==

== ENCOUNTER 2024-04-24 11:27 | Outpatient (AMB) | payer OTHER, SELFPAY ==
[2024-04-24 11:34] VITALS: BP 132/68; PULSE 77; O2SAT 97; BMI 32.7
--- NOTE | 2024-04-24 11:34 | A.OFFPC_ITS ---
Vital Signs 04/24/24 11:34 Height 5 ft 7 in Weight 209 lb BMI 32.7 BP 132/68 Blood Pressure Location Lt brachial Position Sitting Pulse 77 Pulse Source Pulse Oximeter Pulse Oximetry (%) 97 Oxygen Delivery Method Room Air Intake Visit Reasons: f/u elevated liver enzymes+ NEEDS PHQ9 Intake Note: Patient is here to follow up on elevated liver enzymes and needs a PHQ. Patient needs refill of Metoprolol and Omeprazole. Registered Midwife Required: Yes Registered Midwife Name: Ann Tam144 Information Interpreted: clinical only Allergies No Known Allergies Allergy (Verified 04/24/24 11:38) Medication List - Last Reconciled 04/24/24 by Denys Arroyo MD atorvastatin 40 mg PO BEDTIME 30 days cholecalciferol (vitamin D3) 50 mcg PO DAILY metoprolol succinate ER 50 mg PO BID 30 days omeprazole 20 mg PO DAILY 30 days Tobacco use date assessed: 04/24/24 Dental Screening Dental Screen Date: 11/29/23 HPI f/u elevated liver enzymes+ NEEDS PHQ9 HPI Details 39 y/o male presents to f/u elevated tae er enzymes, tachycardia and hypertension. Blood pressure today 132/68. He is on metoprolol 50mg b.i.d. Labs were drawn 02/28/24. Reviewed labs with pt. Elevated fasting glucose of 122 and A1c 5.5%. Ongoing elevated liver enzymes - AST improved from 323 to 212, ALT from 367 to 281. Triglycerides 132. TC 153. LDL 92. HDL low at 35. Pt reports some locking of his fingers. B/L 3rd fingers. HPI Comments History of Present Illness Details Documentation assistance for Denys Arroyo MD, was provided by Anup Vidales, Optics Test Technician on 04/24/2024 at 12:16 PM EST. I, Dr. Arroyo, have read, observed, and verified documentation. [facility] Medical History Hypertension Liver problem Family History (Updated 04/24/24 @ 11:41 by Kristin Delatorre 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 1. Little interest or pleasure in doing things: not at all 2. Feeling down, depressed, or hopeless: not at all 3. Trouble falling or staying asleep, or sleeping too much: not at all 4. Feeling tired or having little energy: not at all 5. Poor appetite or overeating: not at all 6. Feeling bad about yourself - or that you are a failure or have let yourself or your family down: not at all 7. Trouble concentrating on things, such as reading the newspaper or watching television: not at all 8. Moving or speaking so slowly that other people could have noticed. Or the opposite - being so fidgety or restless that you have been moving around a lot more than usual: not at all 9. Thoughts that you would be better off or of hurting yourself in some way: not at all Total score: 0 Depression Screening Interpretation: Negative Depression Screening Done: Yes 81145 - PHQ-9 Billing: Yes Source: Developed by Drs. Darryn Hernandez, Tammi Mckeon, Pankaj Wallace and colleagues, with an educational ventura from [employer]. Thrive Questionnaire Date Thrive assessed: 10/18/23 IAN-7 AMB Questionnaire IAN-7 Date IAN - 7 assessed: 04/24/24 Feeling nervous, anxious, or on edge: 0 = Not at all Not being able to stop or control worryin = Not at all Worrying too much about different things: 1 = Several days (when something happens, and it affects him.) Trouble relaxin = Not at all Being so restless that it is hard to sit still: 0 = Not at all Becoming easily annoyed or irritable: 0 = Not at all Feeling afraid as if something awful might happen: 0 = Not at all Total IAN-7 score (0-4 normal; 5-9 mild; 10-14 moderate; 15-21 severe): 1 Source: Developed by Drs. Darryn Hernandez, Tammi Mckeon, Pankaj Wallace and colleagues, with an educational ventura from [employer]. IAN-7 Assessment Billing IAN-7 Assessment Tool: IAN-7 Assessment 15479 Review of Systems Const Denies chills, Denies fatigue, Denies fever(s), Denies headache(s) and Denies weakness ENT Denies dizziness and Denies headache(s) Card Denies dyspnea Resp Denies cough, Denies dyspnea, Denies wheezing and Denies other (shortness of breath) Musc Denies numbness and Denies tingling Neuro Denies dizziness, Denies headache(s), Denies numbness, Denies tingling and Denies weakness Psych Denies anxiety and Denies depression Endo Denies fatigue Aller/Immun Denies wheezing Physical exam (Primary Care) Vital Signs: Last Vital Signs Pulse 77 04/24/24 11:34 BP 132/68 04/24/24 11:34 Pulse Ox 97 04/24/24 11:34 Oxygen Delivery Method Room Air 04/24/24 11:34 BMI result Body Mass Index 32.7 Tobacco/Smoking Status: Tobacco use Status Tobacco use date assessed 04/24/24 04/24/24 11:51 Patient Tobacco Use Status Former Tobacco user 04/24/24 11:36 e-Cigarette/Vaping Use Never Used 04/24/24 11:36 PHQ-9: PHQ-9 Score PHQ-9: Total score 0 04/24/24 11:51 Depression Screening Interpretation: Negative Thrive Assessment: Date of Thrive Assessment Date Thrive assessed 10/18/23 04/24/24 11:36 Const General: well developed; No acute distress Nutritional Appearance: well nourished Orientation/consciousness: patient oriented x3 [facility] Head: Yes normocephalic and Yes atraumatic Eyes General: appearance normal, both eyes and all related structures Pupils: Equal, round and reactive pupils present EOM: EOMs intact bilaterally Resp Effort & Inspection: normal respiratory effort Neuro General: patient oriented x3 and gait normal Cranial nerves: Yes Equal, round and reactive pupils present Psych Affect: normal affect Assessment and Plan Assessment & Plan (1) Hyperlipidemia: Code(s): E78.5 - Hyperlipidemia, unspecified Plan: Triglycerides?appear?controlled?on?atorvastatin HDL?is?still?low (2) Elevated fasting blood sugar: Code(s): R73.01 - Impaired fasting glucose Plan: Will?continue?to?monitor (3) Elevated liver enzymes: Code(s): R74.8 - Abnormal levels of other serum enzymes Plan: Ongoing?elevated?liver?enzyme Avoid?alcohol?and?Tylenol Hydrate?well Has?an?appointment?with?Gastroenterology (4) Hypertension: Code(s): I10 - Essential (primary) hypertension Plan: Blood?pressure?is?fairly?well?controlled. Cardiology?increased?his?metoprolol Continue?current?medication?regimen Follow-up?with?Cardiology?as?recommended; has?Holter?monitor?and?echocardiogram?to?review?with?Cardiology (5) Locking finger joint: Code(s): M24.849 - Other specific joint derangements of unspecified hand, not elsewhere classified Plan: Locking?at?bilateral?3rd?fingers Trial?ibuprofe n.??He?will?let?me?know?if?this?is?bothering?his?stomach?or?has?other?problems. Ice?and?he If?not?improving?will?refer?him?to?the?hand?specialist. Medications: New ibuprofen 400 mg PO Q8H 30 days PRN 90 tabs 3RF pain Changed From omeprazole 20 mg PO DAILY 30 days 90 caps 0RF To omeprazole 40 mg PO DAILY 90 days 90 caps 2RF Refilled metoprolol succinate ER 50 mg PO BID 30 days 60 tabs 2RF Coding Level of Care Code Est Pt Level 4 (01179) Diagnoses Hyperlipidemia E78.5 Elevated fasting blood sugar R73.01 Elevated liver enzymes R74.8 Hypertension I10 Locking finger joint M24.849 Additional Codes IAN-7 Assessment Billing - IAN-7 Assessment Tool: IAN-7 Assessment 04485 ([id number])
== END 2024-04-24 12:15 | disposition home or self-care (01) ==
PROVIDERS: PCP Family Medicine; Visit Provider Family Medicine
DX: E78.5 Hyperlipidemia, unspecified (principal); R73.01 Impaired fasting glucose; R74.8 Abnormal levels of other serum enzymes; I10 Essential (primary) hypertension; M24.849 Other specific joint derangements of unspecified hand, not elsewhere classified
CPT/HCPCS: 99214

== ENCOUNTER 2024-05-02 13:17 | Outpatient (AMB) | payer OTHER, SELFPAY ==
[2024-05-02 13:30] VITALS: BP 120/68; PULSE 74; BMI 32.8
--- NOTE | 2024-05-02 13:30 | MHC.OFFVIS ---
Vital Signs 05/02/24 13:30 Height 5 ft 7 in Weight 209 lb 7.026 oz BMI 32.8 BP 120/68 Blood Pressure Location Lt brachial Position Sitting Pulse 74 Pulse Source Pulse Oximeter Intake Visit Reasons: s/p ett/ holter echo NS Gas Systems Worker Required: Yes Gas Systems Worker Name: [id number] Allergies No Known Allergies Allergy (Verified 04/24/24 11:38) Medication List - Last Reconciled 05/02/24 by Katharine Andrea NP-C ibuprofen 400 mg PO Q8H PRN 30 days metoprolol succinate ER 50 mg PO BID 30 days omeprazole 60 mg PO DAILY HPI HPI s/p ett/ holter echo NS: Details: Bridget is a 39-year-old male with past medical history hypertension, hyperlipidemia, mild obesity who was recently evaluated for chest discomfort and heart palpitations. Underwent an echocardiogram, stress test and Holter monitor and now presents for follow-up. Today he reports he has been feeling well overall. He has not had any chest discomfort at rest or with activity. He does describe some epigastric discomfort that goes through to his back that occurs randomly and at times after eating. No concerning palpitations. No shortness of breath, PND, orthopnea or edema. No lightheadedness, presyncope, syncope, falls. 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 He bikes to work, traveling [address] He has no concerning symptoms while biking. He does have an upcoming visit with GI to evaluate his epigastric discomfort. 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 Cognitive needs: No Hearing needs: No Vision needs: No Review of Systems Const All systems reviewed & are unremarkable except as noted in HPI and below Denies weakness ENT Denies dizziness Card Details: epigastric discomfort Denies chest pain, Denies chest pain at rest, Denies chest pain with activity, Denies syncope, Denies rapid heart rate, Denies pedal edema, Denies edema, Denies leg edema, Denies lightheadedness, Denies palpitations, Denies dyspnea, Denies dyspnea on exertion and Denies orthopnea Resp Denies cough, Denies dyspnea and Denies dyspnea on exertion GI Denies hematochezia and Denies change in stool character Musc Denies abnormal gait, Denies muscle cramps, Denies muscle weakness, Denies numbness, Denies radiating pain into limb and Denies tingling Neuro Denies abnormal gait, Denies dizziness, Denies syncope, Denies numbness, Denies tingling and Denies weakness Endo Denies palpitations Physical Exam Vital Signs: Last Vital Signs Pulse 74 05/02/24 13:30 BP 120/68 05/02/24 13:30 BMI result Body Mass Index 32.8 Const General: cooperative, healthy appearing, comfortable and no acute distress Orientation/consciousness: patient oriented x3 Neck Neck: Yes normal visual inspection and Yes no JVD Resp Effort & Inspection: normal respiratory effort Auscultation: clear to auscultation bilaterally, no rales, no rhonchi and no wheezes Cardio Jugular venous distension: no JVD Rate: regular rate Rhythm: regular rhythm Heart sounds: S1 normal heart sound present, S2 normal heart sound present, no murmurs and no rubs Neuro General: patient oriented x3 Extrem General: Yes normal to inspection and No no pedal edema Psych Appearance: grossly normal Mental Status: mental status grossly normal Speech and movement: Normal speech and movement present Assessment & Plan Assessment & Plan (1) Chest discomfort: Code(s): R07.89 - Other chest pain Category: Medical Plan: Prior reports of chest area discomfort. He does still report some intermittent epigastric discomfort which occurs randomly and after eating. He has no symptoms brought on by physical activity at this time. He does have cardiac risk factors of hypertension and hyperlipidemia. Echocardiogram done 03/25/2024 showed EF 54%, normal valves. Exercise stress test done on 03/25/2024 showed exercise 11 minutes with mild shortness of breath and report of chest discomfort, no EKG changes. Today he reports he does not have chest area discomfort. He continues to describe a periodic epigastric discomfort and tells me he has a GI appointment next month. This symptom occurs randomly and after eating. He rides his bike [address] going to work and has no symptoms brought on by that activity. When asked about the chest discomfort he had during the stress test he is not able to recall. Only describes feeling tired that day and denies having chest discomfort. Test results reviewed with him in detail. Signs and symptoms of true angina reviewed. Emergency care if ever needed for symptoms. Cardiology follow-up will be as needed. If he continues to report chest discomfort then stress test with imaging can be considered. (2) Hypertension: Code(s): I10 - Essential (primary) hypertension Category: Medical Plan: Well controlled at this time. Continue metoprolol. (3) Acid reflux: Code(s): K21.9 - Gastro-esophageal reflux disease without esophagitis Category: Medical Plan: As above Plan Time spent on chart review, documentation, interview and assessment Medications: Changed From omeprazole 40 mg PO DAILY 90 days 90 caps 2RF To omeprazole 60 mg PO DAILY Coding Level of Care Code Est Pt Level 3 (94558) Diagnoses Chest discomfort R07.89 Hypertension I10 Acid reflux K21.9 Time Spent (min) 24
== END 2024-05-02 14:56 | disposition home or self-care (01) ==
PROVIDERS: PCP Family Medicine; Visit Provider Nurse Practitioner Family
DX: R07.89 Other chest pain (principal); I10 Essential (primary) hypertension; K21.9 Gastro-esophageal reflux disease without esophagitis
CPT/HCPCS: 99213

== ENCOUNTER → 2024-05-02 13:17 | Outpatient (BNVA) | payer OTHER, SELFPAY | PROVIDERS: PCP Family Medicine; Visit Provider Nurse Practitioner Family | DX: R07.89 Other chest pain (principal); R00.2 Palpitations; I10 Essential (primary) hypertension; K21.9 Gastro-esophageal reflux disease without esophagitis | CPT/HCPCS: 99212 ==

== ENCOUNTER 2024-05-27 11:46 | Outpatient (REF) | payer OTHER, SELFPAY ==
[2024-05-27 14:04] LABS: Alanine Aminotransferase 56 U/L (0-40); Albumin Level 4.9 g/dL (3.5-5.0); Alkaline Phosphatase 141 U/L (39-117); Aspartate Amino Transferase 38 U/L (5-37); Bilirubin Direct 0.2 mg/dL (0.0-0.5); Bilirubin Total 0.6 mg/dL (0.0-1.0); C Reactive Protein 0.22 mg/dL (< or = 0.50)
[2024-05-27 14:07] LABS: Gamma Glutamyl Transpeptidase 444 U/L (11-51)
[2024-05-27 14:24] LABS: Ferritin 227 ng/mL (20-250)
[2024-05-28 08:47] LABS: HIV AB/AG Nonreactive (Nonreactive); HIV Num 1 0.05 S/CO (0.00-0.99)
[2024-05-28 08:49] LABS: Ceruloplasmin 28 mg/dL (14-30)
[2024-05-28 12:47] LABS: Alpha Fetoprotein 3.8 ng/mL (<6.1)
[2024-05-29 13:07] LABS: Mitochondrial Antibodies NEGATIVE (NEGATIVE)
[2024-06-04 13:53] LABS: Smooth Muscle Antibody <20 U (<20)
== END 2024-05-27 11:47 | disposition home or self-care (01) ==
LOC: HO.LAB 11:46
PROVIDERS: PCP Family Medicine; Visit Provider Nurse Practitioner Family
DX: Z11.4 Encounter for screening for human immunodeficiency virus [HIV] (principal); R74.8 Abnormal levels of other serum enzymes; R79.89 Other specified abnormal findings of blood chemistry; K58.9 Irritable bowel syndrome, unspecified; K21.9 Gastro-esophageal reflux disease without esophagitis; R74.01 Elevation of levels of liver transaminase levels; K76.0 Fatty (change of) liver, not elsewhere classified; R10.13 Epigastric pain
CPT/HCPCS: 36415; 80076; 82105; 82390; 82728; 82977; 86015; 86140; 86381; 87389; 99202

== ENCOUNTER 2024-05-27 11:46 | Outpatient (AMB) | payer OTHER, SELFPAY ==
--- NOTE | 2024-05-27 11:55 | A.OFFVIS_ITS ---
Vital Signs 05/27/24 11:56 Height 5 ft 7 in Weight 211 lb 10.3 oz BMI 33.1 BP 142/90 H Blood Pressure Location Rt brachial Position Sitting Pulse 76 Pulse Source Pulse Oximeter Pulse Oximetry (%) 99 Oxygen Delivery Method Room Air Intake Visit Reasons: Abnormal levels of other serum enzymes Intake Note: Bridget presents in office today for initial assessment. CC; Pt was referred by PCP for management of elevated LFTs amongst other elevated lab values. Pt reports that they are here primarily for the lab values. Pt denies any sx or concerns otherwise. Pt also reports having a similar sx to GERD sx which he reports as being heart burn however, it does not remain in the typical location that he experiences this pain. Rather, he feels that he experiences this pain all throughout his thoracic cavity. Pt has already been cleared by cardiology regarding this sx. Electronics Department Manager Required: Yes Electronics Department Manager Services: Electronics Department Manager Present Electronics Department Manager Name: [id number] Arianna Information Interpreted: non-clinical & clinical Accompanied by: Self / Same As Patient Allergies No Known Allergies Allergy (Verified 05/27/24 11:56) HPI HPI Abnormal levels of other serum enzymes: Details: 39-year old male with past medical history of hyperlipidemia, transaminitis, sleep apnea, hypertension, tachycardia is here today for initial consultation. Patient was sent by PCP for elevated liver enzymes. Patient has been having elevated enzymes since the beginning of the year. Patient was told that he might have a hepatitis although hepatitis studies done and it was negative. No record of autoimmune studies like smooth muscle antibody or mitochondrial antibodies to evaluate for PBC. Patient denies any abdominal pain or discom fort, however he does admit to have acid reflux postprandially. Currently patient is taking omeprazole. Initially he was started on 20 mg and then increase to 40 mg daily. Patient reports that he continues to have symptoms despite taking the medication. Patient denies any nausea or vomiting. Denies any jaundice. Denies any melena, hematochezia. Denies any unintentional weight loss. Patient reports that he does not drink alcohol. Patient denies any family history of liver disease/cirrhosis or cancer. Liver ultrasound with elastography showed advanced liver disease. [facility] Medical History (Updated 06/04/24 @ 21:12 by Porsha Shukla FRONT SIGHT ATTACHER-) Mass in rectum (~2017) Hemorrhoids with complication (~2021) Hypertension Liver problem Family History Mother Asthma Social History Household Members: Family Housing: House Are you a primary home health care worker to a significant other at home: No Do you presently have visiting nurse or other home services: No 75 years or older and lives alone: No Alcohol intake: current Comment: on occasion Patient Tobacco Use Status: Former Tobacco user e-Cigarette/Vaping Use: Never Used service: No Current occupational status: employed 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 Cognitive needs: No Hearing needs: No Vision needs: No Review of Systems Const Denies weight gain and Denies weight loss ENT Reports no additional complaints, Denies dysphagia and Denies odynophagia Card Reports no additional complaints Resp Reports no additional complaints GI Denies abdominal pain, Denies belching, Denies melena, Denies bloating, Denies change in bowel habits, Denies dysphagia, Denies excessive flatus, Reports dyspepsia, Reports heartburn, Denies diarrhea, Denies loose stools, Denies nausea, Denies odynophagia and Denies vomiting Reports no additional complaints Musc Reports no additional complaints Neuro Reports no additional complaints Psych Reports no additional complaints Endo Reports no additional complaints Physical Exam Vital Signs: Last Vital Signs Pulse 76 05/27/24 11:56 BP 142/90 H 05/27/24 11:56 Pulse Ox 99 05/27/24 11:56 Oxygen Delivery Method Room Air 05/27/24 11:56 BMI result Body Mass Index 33.1 Const General: healthy appearing and no acute distress Nutritional Appearance: obese Orientation/consciousness: patient oriented x3 Resp Effort & Inspection: normal respiratory effort, able to speak in complete sentences, no tracheal deviation and symmetric chest movement Auscultation: clear to auscultation bilaterally Cardio Rate: regular rate GI Inspection: Yes normal to inspection, No distended and Yes obesity Palpation (GI): Soft to palpation, not firm, nontender and No hepatosplenomegaly present Auscultation: normal bowel sounds General: Yes no CVA tenderness Back/Spine/Pelvis Back: no CVA tenderness Skin General skin exam: elasticity normal, turgor normal and dry skin Neuro General: patient oriented x3 Psych Appearance: grossly normal Mental Status: mental status grossly normal Results Reviewed Results Reviewed: LIVER ELASTOGRAPHY FINDINGS: PANCREAS: Limited. The visualized pancreatic head and body are normal in appearance. The remainder of the pancreas is obscured from visualization by the overlying bowel gas. LIVER: The liver demonstrates normal size, contour and is increased echogenicity. No focal lesion or intrahepatic biliary duct dilatation. The right lobe measures 17.4 cm in length. The left lobe measures 12.3 cm in length. Portal flow is towards the liver (hepatopetal). Shear wave liver elastography median stiffness is 2.13 m/s (reference: normal median stiffness is 1.3 m/s or less). IQR/median stiffness to assess sampling precision is 0.15 (reference: good quality data set is IQR/median stiffness of 0.15 or less). GALLBLADDER: Normal. The gallbladder is physiologically distended without evidence of stones, sludge, polyps, wall thickening or pericholecystic fluid. COMMON BILE DUCT: Borderline dilated, measuring 0.8 cm in diameter. RIGHT KIDNEY: Normal. No hydronephrosis. No renal calculi or focal parenchymal lesions. The kidney measures 11.3 cm in maximum dimension. FREE FLUID: None. US/US abdomen chand w elastography IMPRESSION: 1. There is generalized increase in hepatic echotexture, consistent with fatty infiltration or hepatocellular disease. Please correlate clinically. No focal hepatic mass or intrahepatic biliary dilatation is seen. 2. Liver elastography: Measuremensts are consistent with compensated advanced chronic liver disease. 3. The common bile duct is borderline dilated, with a caliber of 8 mm. No choledocholith, intrahepatic biliary ductal dilatation or pancreatic mass is seen. This could be further evaluated with abdominal MRI/MRCP, if clinically indicated. 4. Technically limited ultrasound examination of the pancreatic tail. Laboratory Tests 02/28/24 11:54 Total Bilirubin 2.5 H Direct Bilirubin 1.2 H GGT 1804 H AST 212 H ALT 281 H Alkaline Phosphatase 199 H Lipase 31 Assessment & Plan Assessment & Plan (1) Acid reflux: Code(s): K21.9 - Gastro-esophageal reflux disease without esophagitis Category: Medical Qualifiers: Esophagitis presence: esophagitis presence not specified Qualified Code(s): K21.9 - Gastro-esophageal reflux disease without esophagitis (2) Transaminitis: Code(s): R74.01 - Elevation of levels of liver transaminase levels (3) Hepatic steatosis: Code(s): K76.0 - Fatty (change of) liver, not elsewhere classified (4) Postprandial epigastric pain: Code(s): R10.13 - Epigastric pain Plan Patient will avoid dietary triggers and late night snacking. Will repeat levels today as well as rule out autoimmune hepatitis, PBC, will send disease, hemochromatosis, cancer. Patient reports that he does not drink alcohol. Patient will continue to be abstinent. Increase protein intake, low-salt low- fat diet. Patient will start taking Nexium daily. He will return in 3 months, sooner on as needed basis. He is agreeable to this plan and verbalizes understanding of instructions. He was given the opportunity to ask questions and all questions answered. Thank you for allowing me to participate in his care Orders: Orders Ceruloplasmin 05/27/24 R79.89 - Other specified abnormal findings of blood c hemistry Ferritin 05/27/24 R74.8 - Abnormal levels of other serum enzymes Mitochondrial Antibody 05/27/24 R79.89 - Other specified abnormal findings of blood chemistry Gamma Glutamyl Transpeptidase 05/27/24 R74.8 - Abnormal levels of other serum enzymes HIV Ab/Ag 05/27/24 R79.89 - Other specified abnormal findings of blood chemistry Alpha Fetoprotein 05/27/24 R79.89 - Other specified abnormal findings of blood chemistry Smooth Muscle Antibody 05/27/24 R79.89 - Other specified abnormal findings of blood chemistry C Reactive Protein 05/27/24 K58.9 - Irritable bowel syndrome without diarrhea Liver Panel 05/27/24 R74.01 - Elevation of levels of liver transaminase levels Medications: New esomeprazole magnesium (Nexium) 40 mg PO DAILY 30 caps 5RF K21.9 - Gastro- esophageal reflux disease without esophagitis Coding Level of Care Code New Pt Level 4 (56784) Diagnoses Gastroesophageal reflux disease, unspecified whether esophagitis present K21.9 Esophagitis presence: esophagitis presence not specified Transaminitis R74.01 Hepatic steatosis K76.0 Postprandial epigastric pain R10.13 Time Spent (min) 45 Comment 30 minutes spent with patient and additional 15 minutes spent reviewing his records
[2024-05-27 11:56] VITALS: BP 142/90; PULSE 76; O2SAT 99; BMI 33.1
== END 2024-05-27 12:41 | disposition home or self-care (01) ==
PROVIDERS: PCP Family Medicine; Visit Provider Nurse Practitioner Family
DX: K21.9 Gastro-esophageal reflux disease without esophagitis (principal); R74.01 Elevation of levels of liver transaminase levels; K76.0 Fatty (change of) liver, not elsewhere classified; R10.13 Epigastric pain
CPT/HCPCS: 99204

== ENCOUNTER 2024-07-05 10:39 | Outpatient (AMB) | payer OTHER, SELFPAY ==
--- NOTE | 2024-07-05 10:46 | MHC.PC.OV ---
Vital Signs 07/05/24 10:51 07/05/24 10:53 Height 6 ft 1 in Weight 219 lb 6 oz BMI 28.9 BP 140/70 H 130/78 Blood Pressure Location Lt brachial Lt brachial Position Sitting Sitting Respiration 16 Pulse 100 Pulse Source Pulse Oximeter Temp 96.4 F L Temp Source Tympanic Pulse Oximetry (%) 97 Oxygen Delivery Method Room Air Intake Visit Reasons: f/u hypertension, HLD, chronic conditions Intake Note: follow up for HTN and lab review Allergies No Known Allergies Allergy (Verified 07/05/24 10:47) Tobacco use date assessed: 04/24/24 Dental Screening Dental Screen Date: 11/29/23 HPI f/u hypertension, HLD, chronic conditions HPI Details 39 y/o male presents to f/u hypertension, HLD, chronic conditions. Had seen [facility] for chest area discomfort. He had reported intermittent epigastric discomfort which occurs randomly and after eating. Echocardiogram done 03/25/2024 showed EF 54%, normal valves. Exercise stress test done on 03/25/2024 showed exercise 11 minutes with mild shortness of breath and report of chest discomfort, no EKG changes. Labs drawn 05/27/24. Reviewed labs with pt. Elevated liver enzymes - improved from 212 to 38, 281 to 56. No recent lipid panel. Blood pressure today 130/78, 100p. Has complaints of joint swelling of his feet and tendonitis of his hands. HPI Comments History of Present Illness Details Documentation assistance for Denys Arroyo MD, was provided by Anup Vidales,? Law Enforcement Instructor on 07/05/2024 at 10:59 AM EST. I, Dr. Arroyo, have read, observed, and verified documentation. [facility] Medical History (Updated 07/05/24 @ 11:25 by Anup Vidales) Mass in rectum (~2017) Hemorrhoids with complication (~2020) Hypertension Liver problem Family History Mother Asthma Social History Household Members: Family Housing: House Are you a primary healthcare administration intern to a significant other at home: No Do you presently have visiting nurse or other home services: No 75 years or older and lives alone: No Alcohol intake: current Comment: on occasion Patient Tobacco Use Status: Former Tobacco user e-Cigarette/Vaping Use: Never Used service: No Current occupational status: employed 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 Darryn Hernandez, Tammi Mckeon, Pankaj Wallace and colleagues, with an educational ventura from [employer]. Review of Systems Const Denies chills, Denies fatigue, Denies fever(s), Denies headache(s) and Denies weakness ENT Denies dizziness and Denies headache(s) Card Denies dyspnea Resp Denies cough, Denies dyspnea, Denies wheezing and Denies other (shortness of breath) Musc Denies numbness and Denies tingling Neuro Denies dizziness, Denies headache(s), Denies numbness, Denies tingling and Denies weakness Psych Denies anxiety and Denies depression Endo Denies fatigue Aller/Immun Denies wheezing Physical exam (Primary Care) Vital Signs: Last Vital Signs Temp 96.4 F L 07/05/24 10:51 Pulse 100 07/05/24 10:51 Resp 16 07/05/24 10:51 BP 130/78 07/05/24 10:53 Pulse Ox 97 07/05/24 10:51 Oxygen Delivery Method Room Air 07/05/24 10:51 BMI result Body Mass Index 28.9 Tobacco/Smoking Status: Tobacco use Status Tobacco use date assessed 04/24/24 07/05/24 10:54 Patient Tobacco Use Status Former Tobacco user 07/05/24 10:54 e-Cigarette/Vaping Use Never Used 07/05/24 10:54 Thrive Assessment: Date of Thrive Assessment Date Thrive assessed 10/18/23 07/05/24 10:54 Const General: well developed; No acute distress Nutritional Appearance: well nourished Orientation/consciousness: patient oriented x3 HENMT Head: Yes normocephalic and Yes atraumatic Eyes General: appearance normal, both eyes and all related structures Pupils: Equal, round and reactive pupils present EOM: EOMs intact bilaterally Resp Effort & Inspection: normal respiratory effort Neuro General: patient oriented x3 and gait normal Cranial nerves: Yes Equal, round and reactive pupils present Psych Affect: normal affect Assessment and Plan Assessment & Plan (1) Chest discomfort: Code(s): R07.89 - Other chest pain Plan: Patient?has?had?workup?by?Cardiology?and?this?does?not?appear?to?be?cardiac?in?origin Does?have?significant?GERD Continue?Nexium Avoid?alcohol?and?trigger?foods Follow-up?with?Gastroenterology (2) Acid reflux: Code(s): K21.9 - Gastro-esophageal reflux disease without esophagitis Qualifiers: Esophagitis presence: esophagitis presence not specified Qualified Code(s): K21.9 - Gastro-esophageal reflux disease without esophagitis Plan: As?above Had?been?giving?patient?ibuprofen?for?bilateral?hand?pain?and?tendonitis. Use?only?very?sparingly?and?continue?using?Nexium Avoiding?Tylenol?due?to?significantly?elevated?liver?enzymes. (3) Hypertension: Code(s): I10 - Essential (primary) hypertension Plan: Blood?pressure?is?controlled?on?metoprolol Continue?current?medication (4) Elevated liver enzymes: Code(s): R74.8 - Abnormal levels of other serum enzymes Plan: Patient?has?significantly?elevated?liver?enzymes?as?well?as?an?ultrasound?with?elastography?showing?compensated?advanced?liver?disease. He?has?greatly?decreased?alcohol?intake?and?I?encouraged?him?to?continue?to?decrease?this?with?a?goal?of?abstinence. Hydrate?well Avoid?Tylenol Follow-up?with?Gastroenterology (5) Hyperlipidemia: Code(s): E78.5 - Hyperlipidemia, unspecified Plan: Lipids?have?improved?but?HDL?is?still?too?low Encouraged?exercise (6) Foot pain: Code(s): M79.673 - Pain in unspecified foot Plan: Bilateral?hand?and?feet?swelling?and?pain With?swelling?of?joints?in?bilateral?feet. Check?x-rays?of?feet Check?inflammatory?markers Avoiding?too?much?ibuprofen?due?to?significant?GERD. Avoiding?Tylenol?due?to?elevated?liver?enzymes Will?refer?to?Rheumatology?for?joint?pain?in?bilateral?hands?and?feet?as?well?as?tendinitis?and?locking?of?fingers?on?bilateral?hands. (7) Hand tendonitis: Code(s): M77.8 - Other enthesopathies, not elsewhere classified Plan: As?above Orders: Orders XR foot RT min 3V Today M79.673 - Pain in unspecified foot XR foot LT min 3V Today M79.673 - Pain in unspecified foot Comprehensive [place]. Panel Fast Today Z00.00 - Encounter for general adult medical examination without abnormal findings Lipid Panel Today Z00.00 - Encounter for general adult medical examination without abnormal findings UA and rflx microscopic Today Z00.00 - Encounter for general adult medical examination without abnormal findings Erythrocyte Sedimentation Rate Today M77.8 - Other enthesopathies, not elsewhere classified Rheumatoid Factor Today M77.8 - Other enthesopathies, not elsewhere classified Complete Blood Count Auto Diff Today Z00.00 - Encounter for general adult medical examination without abnormal findings Microalbumin, Random (w Creat) Today I10 - Essential (primary) hypertension TSH reflex Free T4 Today Z00.00 - Encounter for general adult medical examination without abnormal findings Referrals Rheumatology Referral M24.849 - Other specific joint derangements of unspecified hand, not elsewhere classified, M77.8 - Other enthesopathies, not elsewhere classified, M79.673 - Pain in unspecified foot Coding Level of Care Code Est Pt Level 4 (63254) Diagnoses Chest discomfort R07.89 Gastroesophageal reflux disease, unspecified whether esophagitis present K21.9 Esophagitis presence: esophagitis presence not specified Hypertension I10 Elevated liver enzymes R74.8 Hyperlipidemia E78.5 Foot pain M79.673 Hand tendonitis M77.8
[2024-07-05 10:51] VITALS: BP 140/70; PULSE 100; RESP 16; TEMP 35.8; O2SAT 97; BMI 28.9
[2024-07-05 10:53] VITALS: BP 130/78
== END 2024-07-05 11:27 | disposition home or self-care (01) ==
PROVIDERS: PCP Family Medicine; Visit Provider Family Medicine
DX: R07.89 Other chest pain (principal); K21.9 Gastro-esophageal reflux disease without esophagitis; I10 Essential (primary) hypertension; R74.8 Abnormal levels of other serum enzymes; M77.8 Other enthesopathies, not elsewhere classified; E78.5 Hyperlipidemia, unspecified; M79.672 Pain in left foot; M79.671 Pain in right foot
CPT/HCPCS: 99214

== ENCOUNTER 2024-08-28 13:20 | Outpatient (AMB) | payer OTHER, SELFPAY ==
[2024-08-28 13:24] VITALS: BP 146/96; PULSE 82; O2SAT 97; BMI 34.0
--- NOTE | 2024-08-28 13:24 | A.OFFVIS_ITS ---
Vital Signs 08/28/24 13:24 Height 5 ft 7 in Weight 217 lb 6.012 oz BMI 34.0 BP 146/96 H Blood Pressure Location Lt brachial Position Sitting Pulse 82 Pulse Source Pulse Oximeter Pulse Oximetry (%) 97 Oxygen Delivery Method Room Air Intake Visit Reasons: Elevated LFT and GERD Intake Note: Relevant Flags or Indicators ? Requires Oyster Culler? Y Marleni Gill presents in office today for a scheduled 3 mos FUV. CC; Since last visit; labs ordered ? not done. Rx ordered ? yes, esomeprazole. Diagnostics/images ordered ? none. Relevant GI Sx as reported per pt? Reflux -- Pt has been having worsening sx due to being out of esomeprazole. Pt was given omeprazole by his PCP but it has not been working as well. Pt would like to return to using nexium. ? Dysphagia / Painful Swallowing ? Abdominal Pain o?? Upper Left Quadrant -- Intermittently. Pt has been having some difficulties with constipation lately as well. Pt reports having a bowel movent ~ 3-4 days. ? Hx of any recent surgeries; None Oyster Culler Required: Yes Oyster Culler Services: Oyster Culler Present Oyster Culler Name: [id number] -- [place] Information Interpreted: non-clinical & clinical Accompanied by: Self / Same As Patient Allergies No Known Allergies Allergy (Verified 08/28/24 13:25) HPI HPI Elevated LFT and GERD: Details: Acid reflux Transaminitis Hepatic steatosis Postprandial epigastric pain Plan Patient will avoid dietary triggers and late night snacking. Will repeat levels today as well as rule out autoimmune hepatitis, PBC, will send disease, hemochromatosis, cancer. Patient reports that he does not drink alcohol. Patient will continue to be abstinent. Increase protein intake, low-salt low-fat diet. Patient will start taking Nexium daily. He will return in 3 months, sooner on as needed basis. He is agreeable to this plan and verbalizes understanding of instructions. He was given the opportunity to ask questions and all questions answered. ? Thank you for allowing me to participate in his care Orders Orders Ceruloplasmin 05/27/24 R79.89 Ferritin 05/27/24 R74.8 Mitochondrial Antibody 05/27/24 R79.89 Gamma Glutamyl Transpeptidase 05/27/24 R74.8 HIV Ab/Ag 05/27/24 R79.89 Alpha Fetoprotein 05/27/24 R79.89 Smooth Muscle Antibody 05/27/24 R79.89 C Reactive Protein 05/27/24 K58.9 Liver Panel 05/27/24 R74.01 Medications New esomeprazole magnesium (Nexium) 40 mg PO DAILY 30 caps 5RF K21.9 TODAY'S VISIT: Patient is here today for follow-up. Patient reports that he is feeling better since last visit. States that his acid reflux is suppressed with Nexium. Patient reports occasional he will have epigastric pain and he takes ibuprofen. Patient was given ibuprofen for leg pain and joint pain. Patient reports that ibuprofen is helpful. Patient denies any nausea or vomiting. Reports occasional loose stools and constipation. Patient denies any abdominal pain or discomfort postprandially. Occasional cramping. Patient had ultrasound with elastography done in April that was reviewed during last visit. Elastography showed advanced compensated liver. Recent study showed no autoimmune disorders, negative Pio's disease, cancer, PBC, autoimmune hepatitis all his blood work reviewed with him again. Patient denies drinking alcohol. He has not really changed his diet although trying to eat healthy. Patient reports that when he was living in [place] had COVID and was told that he developed hepatitis after being sick with COVID. 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 Cognitive needs: No Hearing needs: No Vision needs: No Review of Systems Const Denies weight gain and Denies weight loss ENT Reports no additional complaints, Denies dysphagia and Denies odynophagia Card Reports no additional complaints Resp Reports no additional complaints GI Reports abdominal pain (LLQ), Denies belching, Denies melena, Denies bloating, Denies change in bowel habits, Reports constipation, Denies dysphagia, Denies excessive flatus, Denies dyspepsia, Reports heartburn, Denies diarrhea, Reports loose stools, Denies nausea, Denies odynophagia and Denies vomiting Reports no additional complaints Musc Reports no additional complaints Neuro Reports no additional complaints Psych Reports no additional complaints Endo Reports no additional complaints Physical Exam Vital Signs: Last Vital Signs Pulse 82 08/28/24 13:24 BP 146/96 H 08/28/24 13:24 Pulse Ox 97 08/28/24 13:24 Oxygen Delivery Method Room Air 08/28/24 13:24 BMI result Body Mass Index 34.0 Const General: healthy appearing and no acute distress Nutritional Appearance: obese Orientation/consciousness: patient oriented x3 Resp Effort & Inspection: normal respiratory effort, able to speak in complete sentences, no tracheal deviation and symmetric chest movement Auscultation: clear to auscultation bilaterally Cardio Rate: regular rate GI Inspection: Yes normal to inspection, No distended and Yes obesity Palpation (GI): Soft to palpation, not firm, nontender and No hepatosplenomegaly present Auscultation: normal bowel sounds General: Yes no CVA tenderness Back/Spine/Pelvis Back: no CVA tenderness Skin General skin exam: elasticity normal, turgor normal and dry skin Neuro General: patient oriented x3 Psych Appearance: grossly normal Mental Status: mental status grossly normal Assessment & Plan Assessment & Plan (1) Acid reflux: Code(s): K21.9 - Gastro-esophageal reflux disease without esophagitis Category: Medical Qualifiers: Esophagitis presence: esophagitis presence not specified Qualified Code(s): K21.9 - Gastro-esophageal reflux disease without esophagitis (2) Transaminitis: Code(s): R74.01 - Elevation of levels of liver transaminase levels (3) Hepatic steatosis: Code(s): K76.0 - Fatty (change of) liver, not elsewhere classified (4) Postprandial epigastric pain: Code(s): R10.13 - Epigastric pain Plan Will repeat liver enzymes again today. Continue low-salt low carb diet increase protein intake. Patient was encouraged to lose weight. Continue esomeprazole. Avoid dietary triggers and late night snacking. So far we ruled out Pio's, autoimmune hepatitis, PBC, HCC, hemochromatosis. There is also possibility of polymyositis. Again stressed the importance of patient avoiding carbs and fat. High-protein diet recommended. Avoiding medication hepatotoxic. Patient can start fiber supplements in the morning and senna in the evening. Famotidine on as needed basis. Patient will follow-up in 2 months. He will call office if he will continue to have symptoms. He was given the opportunity to ask questions and all questions answered. Thank you for allowing me to participate in his care. Orders: Orders Liver Panel Today R74.01 - Elevation of levels of liver transaminase levels Medications: New methylcellulose (laxative) (Citrucel) take it with full glass of water 500 mg PO DAILY 90 tabs 2RF K59.00 - Constipation, unspecified famotidine (Pepcid) 20 mg PO BEDTIME 30 tabs 3RF K21.9 - Gastro-esophageal reflux disease without esophagitis sennosides (Natural Senna Laxative) 17.2 mg (2 x 8.6 mg) PO BEDTIME 180 tabs 3RF constipation K59.00 - Constipation, unspecified Refilled esomeprazole magnesium (Nexium) 40 mg PO DAILY 90 caps 3RF K21.9 - Gastro- esophageal reflux disease without esophagitis Coding Level of Care Code Est Pt Level 4 (21287) Diagnoses Gastroesophageal reflux disease, unspecified whether esophagitis present K21.9 Esophagitis presence: esophagitis presence not specified Transaminitis R74.01 Hepatic steatosis K76.0 Postprandial epigastric pain R10.13 Time Spent (min) 40 Comment 25 minutes spent with patient and additional 15 minutes spent reviewing his records
== END 2024-08-28 14:16 | disposition home or self-care (01) ==
PROVIDERS: PCP Family Medicine; Visit Provider Nurse Practitioner Family
DX: K21.9 Gastro-esophageal reflux disease without esophagitis (principal); R74.01 Elevation of levels of liver transaminase levels; K76.0 Fatty (change of) liver, not elsewhere classified; R10.13 Epigastric pain
CPT/HCPCS: 99214

== ENCOUNTER 2024-08-28 13:20 | Outpatient (REF) | payer OTHER, SELFPAY ==
[2024-08-28 15:38] LABS: Alanine Aminotransferase 106 U/L (0-40); Albumin Level 4.9 g/dL (3.5-5.0); Alkaline Phosphatase 162 U/L (39-117); Aspartate Amino Transferase 73 U/L (5-37); Bilirubin Direct 0.3 mg/dL (0.0-0.5); Bilirubin Total 0.8 mg/dL (0.0-1.0)
== END 2024-08-28 13:21 | disposition home or self-care (01) ==
LOC: HO.LAB 13:20
PROVIDERS: PCP Family Medicine; Visit Provider Nurse Practitioner Family
DX: K21.9 Gastro-esophageal reflux disease without esophagitis (principal); K76.0 Fatty (change of) liver, not elsewhere classified; R74.01 Elevation of levels of liver transaminase levels; R10.13 Epigastric pain; Z79.899 Other long term (current) drug therapy; K59.00 Constipation, unspecified
CPT/HCPCS: 36415; 80076; 99212

== ENCOUNTER 2024-09-10 13:02 | Outpatient (REF) | payer OTHER, SELFPAY ==
--- NOTE | ~2024-09-10 | XR_ITS ---
EXAMINATION: XR FOOT LEFT CLINICAL INFORMATION: Other enthesopathies, not elsewhere classified M77.8. COMPARISON: None available. TECHNIQUE: AP, lateral, and oblique views of the left foot. FINDINGS: [id number] joint space narrowing with bony remodeling and marginal osteophytes at the first metacarpal phalangeal joint and hallux sesamoids. No acute fracture or dislocation. No concerning lytic or blastic osseous lesion. No abnormal soft tissue calcification. 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 Electronically signed by: Julian Lemus MD 11/15/2024 09:34 AM EST
--- NOTE | ~2024-09-10 | XR_ITS ---
EXAMINATION: XR FOOT RIGHT CLINICAL INFORMATION: Other enthesopathies, not elsewhere classified. COMPARISON: None available. TECHNIQUE: AP, lateral, and oblique views of the right foot. FINDINGS: No acute fracture or dislocation. No joint space narrowing or marginal osteophytes. No concerning lytic or blastic osseous lesion. Tiny dorsal calcaneal enthesophyte. XR/XR foot RT min 3V IMPRESSION: 1. No acute osseous abnormality. 2. Tiny dorsal calcaneal spur. Electronically signed by: Julian Lemus MD 11/15/2024 09:34 AM EST
== END 2024-09-10 13:03 | disposition home or self-care (01) ==
LOC: HO.XRAY 13:02
PROVIDERS: PCP Family Medicine; Visit Provider Student in an Organized Health Care Education/Training Program
DX: M77.8 Other enthesopathies, not elsewhere classified (principal); M79.673 Pain in unspecified foot
CPT/HCPCS: 73630; 99202

== ENCOUNTER 2024-09-10 13:02 | Outpatient (AMB) | payer OTHER, SELFPAY ==
--- NOTE | 2024-09-10 13:06 | MHC.OFFVIS ---
Vital Signs 09/10/24 13:27 Height 6 ft 7 in Weight 219 lb 9.286 oz BMI 24.7 BP 140/80 H Blood Pressure Location Lt brachial Position Sitting Pulse 85 Pulse Source Pulse Oximeter Pulse Oximetry (%) 97 Oxygen Delivery Method Room Air Intake Visit Reasons: foot pain/COURTNEY/cm Intake Note: Patient presents for foot pain. I been having pain for one year on my both hands middle fingers, left leg and pain on my big toe. I take Ibuprofen for pain only short hand. Is hard to open my hands and fingers in the morning. Manager Of Applications Development Required: Yes Manager Of Applications Development Language: French Manager Of Applications Development Services: Manager Of Applications Development Present Manager Of Applications Development Name: Irene [id number] Information Interpreted: non-clinical & clinical Allergies No Known Allergies Allergy (Verified 09/10/24 13:24) Medication List - Last Reconciled 09/10/24 by Cristal Patrick MD cholecalciferol (vitamin D3) 25 mcg PO DAILY esomeprazole magnesium (Nexium) 40 mg PO DAILY famotidine (Pepcid) 20 mg PO BEDTIME ibuprofen 400 mg PO Q8H PRN 30 days methylcellulose (laxative) (Citrucel) 500 mg PO DAILY metoprolol succinate ER 50 mg PO BID 30 days sennosides (Natural Senna Laxative) 17.2 mg (2 x 8.6 mg) PO BEDTIME HPI Comments Details: Patient is a 39-year-old [place]ian male with hypertension complicated by left ventricular hypertrophy, hyperlipidemia and a history of hepatitis presents for evaluation of hand and foot pain. Patient states that for the past several months he has been having locking of his 3rd digit bilaterally. This has been painful. At times he had would have to manually open his hand. He denies prolonged stiffness, swelling to the hands or wrists. Also complains of 1st MTP pain on the left foot. Denies history of gout or recurrent swelling, redness and tenderness to palpation of the 1st MTP joint and not being able to put shoes on. Then eyes heel pain. No history of inflammatory type back pain Grandma arthritis but unsure what kind. 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 Cognitive needs: No Hearing needs: No Vision needs: No Review of Systems Const Details: Review of Systems Constitutional: Denies fever, chills, weight loss ENT: Denies vision changes, eye pain or eye redness, dental caries, dry mouth GI: Denies nausea, vomiting, diarrhea, abdominal pain, change in BM Pulm: Denies SOB, LEE, hemoptysis, wheezing Cards: Denies chest pain, palpitations Skin: Denies Raynaud's, rash, nail changes, photosensitivity, WWE WRESTLER: Denies headaches, weakness, paresthesias, recurrent falls MSK: as per HPI All other systems reviewed and are unremarkable except noted above Physical Exam Vital Signs: Last Vital Signs Pulse 85 09/10/24 13:27 BP 140/80 H 09/10/24 13:27 Pulse Ox 97 09/10/24 13:27 Oxygen Delivery Method Room Air 09/10/24 13:27 BMI result Body Mass Index 24.7 Physical Examination CONSTITUITIONAL Patient alert and cooperative. Well appearing and in no apparent painful distress HEENT Conjunctiva and sclera clear. ?Pupils equal round and reactive to light. ?No lymphadenopathy. ?Normal dentition. No oral or nasal ulcers noted. No evidence of discoid rash to the michelle of ears CHEST/RESPIRATORY SYSTEM Normal respiratory effort and able to speak in complete sentences. ?Clear to auscultation bilaterally. ?No crackles, rales, rhonchi, wheezes heard. CARDIAC SYSTEM Regular rate and rhythm. ?S1 and S2 heard no murmurs. ?Radial pulses intact bilaterally MSK Hands: ?Good wet cotton feeder strength bilaterally - 5/5. ?No deformities noted. ?No synovitis noted to the MCPs, PIPs or DIPs. ?No tenderness to palpation of these joints. Bilateral 3rd digit trigger finger. Wrists: ?Full range of motion at the wrists without pain. ?No tenderness to palpation or synovitis noted to the wrists. Elbows: Full range of motion without pain. No tenderness, weakness, swelling, increased warmth or erythema. Shoulders: Full range of motion without pain. No tenderness, weakness, swelling, increased warmth or erythema. Knees: ?Full range of motion. ?No tenderness, swelling, increased warmth or erythema.?No effusion or crepitations Ankles: Full range of motion. ?No tenderness, swelling, increased warmth or erythema.? Feet: ?Negative squeeze test. ?Left 1st MTP with prominent bony marking. Decreased toe dorsiflexion range of motion to the 1st MTP. Otherwise normal feet Tender points:??No tenderness to palpation of the neck, shoulders, chest, elbows, hips, buttocks or knees. SKIN Skin intact without rashes. Results Reviewed Results Reviewed: No x-rays seen Laboratory Tests 05/27/24 13:00 C-Reactive Protein 0.22 Assessment & Plan Assessment & Plan (1) Foot pain: Code(s): M79.673 - Pain in unspecified foot Category: Medical Qualifiers: Laterality: left Qualified Code(s): M79.672 - Pain in left foot Plan: #Left 1st MTP Pain Differentials include gout but his history did not suggest gout since he did not have a history of recurrent acute monoarticular arthritis. I suspect this is more mechanical issue. We will get foot x-rays and re-evaluate. Patient will likely need occupational therapy with assistance with orthotics. (2) Hand tendonitis: Code(s): M77.8 - Other enthesopathies, not elsewhere classified Category: Medical Plan: #Bilateral middle finger tenosynovitis Patient with bilateral middle finger tenosynovitis causing trigger finger. Status post steroid injection. Low suspicion for autoimmune disease. Orders: Orders XR foot RT min 3V Today M77.8 - Other enthesopathies, not elsewhere classified, M79.673 - Pain in unspecified foot XR foot LT min 3V Today M77.8 - Other enthesopathies, not elsewhere classified, M79.673 - Pain in unspecified foot Coding Level of Care Code New Pt Level 3 (77752) Diagnoses Left foot pain M79.672 Laterality: left Hand tendonitis M77.8
[2024-09-10 13:27] VITALS: BP 140/80; PULSE 85; O2SAT 97; BMI 24.7
== END 2024-09-10 14:21 | disposition home or self-care (01) ==
LOC: HO.RHE 13:03
PROVIDERS: PCP Family Medicine; Visit Provider Student in an Organized Health Care Education/Training Program
DX: M79.672 Pain in left foot (principal); M77.8 Other enthesopathies, not elsewhere classified
CPT/HCPCS: 99203

== ENCOUNTER → 2024-12-11 12:25 | Outpatient (BNVA) | payer OTHER, SELFPAY | PROVIDERS: PCP Family Medicine; Visit Provider Student in an Organized Health Care Education/Training Program | DX: M19.072 Primary osteoarthritis, left ankle and foot (principal); M25.849 Other specified joint disorders, unspecified hand | CPT/HCPCS: 99212 ==

== ENCOUNTER 2024-12-27 14:54 | Outpatient (REF) | payer OTHER, SELFPAY ==
[2024-12-27 17:15] LABS: Prothrombin Time 11.8 SEC (10.9-12.4)
[2024-12-27 17:52] LABS: Alanine Aminotransferase 144 U/L (0-40); Albumin Level 4.9 g/dL (3.5-5.0); Alkaline Phosphatase 137 U/L (39-117); Aspartate Amino Transferase 82 U/L (5-37); Bilirubin Direct 0.2 mg/dL (0.0-0.5); Bilirubin Total 0.4 mg/dL (0.0-1.0); Total Protein 8.7 g/dL (6.5-8.0)
[2024-12-27 18:02] LABS: Ferritin 320 ng/mL (20-250)
[2024-12-27 18:35] LABS: Erythrocyte Sedimentation Rate 4 MM/HR (0-15)
[2024-12-30 18:58] LABS: Lyme Abs Screen <0.90 index
[2024-12-30 19:38] LABS: Prot Elec - Albumin 5.1 g/dL (3.8-4.8); Prot Elec - Alpha1 0.3 g/dL (0.2-0.3); Prot Elec - Alpha2 0.7 g/dL (0.5-0.9); Prot Elec - Beta 1 0.6 g/dL (0.4-0.6); Prot Elec - Beta 2 0.4 g/dL (0.2-0.5)
[2025-01-13 14:03] LABS: Aldolase 8.8 (H)
[2025-01-13 14:04] LABS: Liver Fibrosis Score 0.24; Liver Fibrosis Stage F0-F1
[2025-01-13 14:06] LABS: Liver Fibrosis Interpretation no fibrosis; Nec Inflam Act Grade A2; Nec Inflam Act Score 0.58
[2025-01-13 14:07] LABS: FIB-Alpha-2-Macroglobulin 184; Nec Inflam Act Interpretation significant activity
[2025-01-13 14:08] LABS: FIB-Apolipoprotein A1 199 (H); FIB-Haptoglobin 145; FIB-Total Bilirubin 0.4
[2025-01-13 14:09] LABS: FIB-ALT 109 (H); FIB-GGT 831 (H); Reference ID 5356639
[2025-01-13 14:11] LABS: Creatine Kinase,Total,Serum 142
[2025-01-13 14:12] LABS: CK-BB None Detected; CK-MB 0; CK-MM 100
== END 2024-12-27 14:55 | disposition home or self-care (01) ==
LOC: HO.LAB 14:54
PROVIDERS: PCP Family Medicine; Visit Provider Nurse Practitioner Family
DX: R74.01 Elevation of levels of liver transaminase levels (principal); R79.89 Other specified abnormal findings of blood chemistry; R74.8 Abnormal levels of other serum enzymes; K76.0 Fatty (change of) liver, not elsewhere classified; Z86.19 Personal history of other infectious and parasitic diseases; R52 Pain, unspecified
CPT/HCPCS: 36415; 80076; 81256; 81596; 82085; 82552; 82728; 84134; 84165; 85610; 85652; 86617; 86618; 99212

== ENCOUNTER 2024-12-27 14:54 | Outpatient (AMB) | payer OTHER, SELFPAY ==
[2024-12-27 14:56] VITALS: BP 140/82; PULSE 76; O2SAT 97; BMI 35.6
--- NOTE | 2024-12-27 14:56 | MHC.OFFVIS ---
Vital Signs 12/27/24 14:56 Height 5 ft 7 in Weight 227 lb 8.273 oz BMI 35.6 BP 140/82 H Blood Pressure Location Rt brachial Position Sitting Pulse 76 Pulse Source Pulse Oximeter Pulse Oximetry (%) 97 Oxygen Delivery Method Room Air Intake Visit Reasons: 4 mos FUV. Requires 30 min, [place] Int. Intake Note: ESTABLISHED PATIENT for abn liver enzyme mgmt. Lab done, some still active. Chief Complaint; C/O RUQ, colicky type pain, intermittent, as well as bloating and heaviness. Pt denies any additional concerns. Healthcare Administrative Assistant Required: Yes Healthcare Administrative Assistant Services: Healthcare Administrative Assistant Present Healthcare Administrative Assistant Name: Miguel [id number] Information Interpreted: clinical only Accompanied by: Self / Same As Patient Allergies No Known Allergies Allergy (Verified 12/27/24 14:56) HPI HPI 4 mos FUV. Requires 30 min, [place] Int.: Details: LAST VISIT: Acid reflux Transaminitis Hepatic steatosis Postprandial epigastric pain Plan Will repeat liver enzymes again today. Continue low-salt low carb diet increase protein intake. Patient was encouraged to lose weight. Continue esomeprazole. Avoid dietary triggers and late night snacking. So far we ruled out Pio's, autoimmune hepatitis, PBC, HCC, hemochromatosis. There is also possibility of polymyositis. Again stressed the importance of patient avoiding carbs and fat. High-protein diet recommended. Avoiding medication hepatotoxic. Patient can start fiber supplements in the morning and senna in the evening. Famotidine on as needed basis. Patient will follow-up in 2 months. He will call office if he will continue to have symptoms. He was given the opportunity to ask questions and all questions answered. ? Thank you for allowing me to participate in his care. Orders Orders Liver Panel Today R74.01 Medications New methylcellulose (laxative) (Citrucel) take it with full glass of water 500 mg PO DAILY 90 tabs 2RF K59.00 famotidine (Pepcid) 20 mg PO BEDTIME 30 tabs 3RF K21.9 sennosides (Natural Senna Laxative) 17.2 mg (2 x 8.6 mg) PO BEDTIME 180 tabs 3RF constipation K59.00 Refilled esomeprazole magnesium (Nexium) 40 mg PO DAILY 90 caps 3RF K21.9 TODAY'S VISIT: Patient is here today for follow-up. Patient reports that he continues to have occasional abdominal pain and bloating. Patient gained 10 lb since last visit. We discussed last visit about dietary choices. Patient continues to eat fast food. His diet is Eastern where he does eat a lot of fatty food and carbs. Patient reports occasional left lower quadrant pain feeling of fullness and pressure. Moves his bowels, however does not feel like he empties them completely. Also reports right upper quadrant pain and pressure. Occasional abdominal bloating. Denies melena, hematochezia, unintentional weight loss or ribbon like stools. Reports occasional dyspepsia without dysphagia or odynophagia. All of his blood work reviewed with him again during this visit as well as ultrasound COUNTS INCLUDE 234 BEDS AT THE [facility] Medical History (Updated 01/21/25 @ 13:35 by Porsha Shukla, [facility]) History of hepatitis 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 Mass in rectum (~2017) Hemorrhoids with complication (~2020) Hypertension Liver problem Surgical History No pertinent past surgical history Family History Mother Asthma Social History Household Members: Family Housing: House Are you a primary laboratory animal care veterinarian to a significant other at home: No Do you presently have visiting nurse or other home services: No 75 years or older and lives alone: No Alcohol intake: current Comment: on occasion Patient Tobacco Use Status: Former Tobacco user e-Cigarette/Vaping Use: Never Used service: No Current occupational status: employed 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 Cognitive needs: No Hearing needs: No Vision needs: No Review of Systems Const Denies weight gain and Denies weight loss ENT Reports no additional complaints, Denies dysphagia and Denies odynophagia Card Reports no additional complaints Resp Reports no additional complaints GI Reports abdominal pain (LLQ), Denies belching, Denies melena, Reports bloating, Denies change in bowel habits, Reports constipation, Denies dysphagia, Denies excessive flatus, Denies dyspepsia, Reports heartburn, Denies diarrhea, Reports loose stools, Denies nausea, Denies odynophagia and Denies vomiting Reports no additional complaints Musc Reports no additional complaints Neuro Reports no additional complaints Psych Reports no additional complaints Endo Reports no additional complaints Physical Exam Vital Signs: Last Vital Signs Pulse 76 12/27/24 14:56 BP 140/82 H 12/27/24 14:56 Pulse Ox 97 12/27/24 14:56 Oxygen Delivery Method Room Air 12/27/24 14:56 BMI result Body Mass Index 35.6 Const General: healthy appearing and no acute distress Nutritional Appearance: obese Orientation/consciousness: patient oriented x3 Resp Effort & Inspection: normal respiratory effort, able to speak in complete sentences, no tracheal deviation and symmetric chest movement Auscultation: clear to auscultation bilaterally Cardio Rate: regular rate GI Inspection: Yes normal to inspection, No distended and Yes obesity Palpation (GI): Soft to palpation, not firm, nontender and No hepatosplenomegaly present Auscultation: normal bowel sounds General: Yes no CVA tenderness Back/Spine/Pelvis Back: no CVA tenderness Skin General skin exam: elasticity normal, turgor normal and dry skin Neuro General: patient oriented x3 Psych Appearance: grossly normal Mental Status: mental status grossly normal Assessment & Plan Assessment & Plan (1) Elevated liver enzymes: Code(s): R74.8 - Abnormal levels of other serum enzymes Category: Medical (2) Acid reflux: Code(s): K21.9 - Gastro-esophageal reflux disease without esophagitis Category: Medical Qualifiers: Esophagitis presence: esophagitis presence not specified Qualified Code(s): K21.9 - Gastro-esophageal reflux disease without esophagitis (3) Transaminitis: Code(s): R74.01 - Elevation of levels of liver transaminase levels (4) Hepatic steatosis: Code(s): K76.0 - Fatty (change of) liver, not elsewhere classified (5) Postprandial epigastric pain: Code(s): R10.13 - Epigastric pain (6) RUQ abdominal pain: Code(s): R10.11 - Right upper quadrant pain (7) History of hepatitis: Code(s): Z86.19 - Personal history of other infectious and parasitic diseases Category: Medical Plan Patient reports occasional postprandial epigastric pain as well as right upper quadrant pressure. Will send patient her HIDA scan. Will recheck a liver panel, DNA hemochromatosis, high ferritin last time will repeat. Discussion with patient about dietary choices. Low fat, low salt, low carb and high-protein diet. Exercise and weight loss recommended. Follow-up in 3 months, sooner on as needed basis. Patient is agreeable to this plan and verbalizes understanding of instructions. He was given the opportunity to ask questions and all questions answered. Thank you for allowing me to participate in his care Orders: Orders Liver Panel 12/27/24 R74.01 - Elevation of levels of liver transaminase levels NM hepatobiliary w pharm 12/27/24 R10.11 - Right upper quadrant pain DNA Analysis Hemochromatosis 12/27/24 R79.89 - Other specified abnormal findings of blood chemistry Ferritin 12/27/24 R74.8 - Abnormal levels of other serum enzymes Coding Level of Care Code Est Pt Level 4 (65087) Complex EM visit Add On G2211 Diagnoses Elevated liver enzymes R74.8 Gastroesophageal reflux disease, unspecified whether esophagitis present K21.9 Esophagitis presence: esophagitis presence not specified Transaminitis R74.01 Hepatic steatosis K76.0 Postprandial epigastric pain R10.13 RUQ abdominal pain R10.11 History of hepatitis Z86.19 Time Spent (min) 35 Comment 25 minutes spent with patient and additional 10 minutes spent reviewing his records
== END 2024-12-27 15:52 | disposition home or self-care (01) ==
PROVIDERS: PCP Family Medicine; Visit Provider Nurse Practitioner Family
DX: R74.8 Abnormal levels of other serum enzymes (principal); K21.9 Gastro-esophageal reflux disease without esophagitis; R74.01 Elevation of levels of liver transaminase levels; K76.0 Fatty (change of) liver, not elsewhere classified; R10.13 Epigastric pain; R10.11 Right upper quadrant pain; Z86.19 Personal history of other infectious and parasitic diseases
CPT/HCPCS: 99214; G2211

== ENCOUNTER 2025-01-01 13:08 | Outpatient (REF) | payer OTHER, SELFPAY ==
[2025-01-04 01:34] LABS: TS Negative Control Passed; TS Panel A 0; TS Panel B 0; TS Positive Control Passed; TSpotTB Negative (Negative)
== END 2025-01-01 13:09 | disposition home or self-care (01) ==
LOC: HO.WFDLDS 13:08
PROVIDERS: Visit Provider Family Medicine
DX: Z11.1 Encounter for screening for respiratory tuberculosis (principal)
CPT/HCPCS: 36415; 86481

== ENCOUNTER 2025-01-22 10:41 | Outpatient (REF) | payer OTHER, SELFPAY ==
[2025-01-22 14:16] LABS: MANUAL DIFF FLAG NO
[2025-01-22 14:23] LABS: Appearance Urine Clear; Color Urine Yellow; Glucose Urine UA Negative (Negative); Leukocyte Esterase Urine Negative (Negative); Nitrite Urine Negative (Negative); PH 6.5 (5.0-9.0); Specific Gravity - Urine <= 1.005 (1.005-1.025); Urine Blood Negative (Negative); Urine Ketones Negative (Negative); Urine Protein Negative (Neg-Trace)
[2025-01-22 14:34] LABS: Basophils Absolute Auto 0.1 X10*3/uL (0.0-0.2); Basophils Percent Auto 0.7 % (0-2); Eosinophils Absolute Auto 0.3 X10*3/uL (0.0-0.4); Hematocrit 44.4 % (42.0-52.0); Hemoglobin 14.9 g/dl (14.0-18.0); Imm Gran Abs Auto 0.03 X10*3/uL (0.00-0.03); Imm Gran Pct Auto 0.3 % (0.0-0.4); Lymphocytes Absolute Auto 3.3 X10*3/uL (1.2-4.9); Lymphocytes Percent Auto 37.1 % (20-40); Mean Corpuscular HGB Conc 33.6 g/dl (31.0-36.0); Mean Corpuscular Hemoglobin 32.6 pg (27.0-33.0); Mean Corpuscular Volume 97.2 fL (80.0-98.0); Mean Platelet Volume 11.7 fL (9.4-12.4); Monocytes Percent Auto 11.2 % (2-11); Neutrophils Absolute Auto 4.3 x10*3/uL (2.0-8.3); Neutrophils Percent Auto 47.7 % (45-73); Platelet Count 195 X10*3/uL (160-400); Red Blood Count 4.57 X10*6/uL (4.60-5.80); Red Cell Distribution Width 12.8 % (11.0-16.0)
[2025-01-22 14:40] LABS: Alkaline Phosphatase 120 U/L (39-117)
[2025-01-22 14:55] LABS: Alanine Aminotransferase 133 U/L (0-40); Albumin Level 4.7 g/dL (3.5-5.0); Alkaline Phosphatase 120 U/L (39-117); Anion Gap 10 (12-20); Aspartate Amino Transferase 63 U/L (5-37); Bilirubin Total 0.4 mg/dL (0.0-1.0); Blood Urea Nitrogen 13 mg/dL (9-16); Calcium 9.9 mg/dL (8.4-10.2); Carbon Dioxide 29 mmol/L (22-29); Chloride 103 mmol/L (96-108); Cholesterol 213 mg/dL (<200); Estimated Glomerular Filt Rate > 60; Glucose Fasting 102 mg/dL (60-99); HDL Cholesterol 48 mg/dL (>40); LDL Cholesterol Calculated 107 mg/dL (<100); Potassium 4.1 mmol/L (3.3-5.1); Sodium 138 mmol/L (135-145); Total Protein 8.2 g/dL (6.5-8.0); Triglycerides 291 mg/dL (<150)
[2025-01-22 15:00] LABS: TSH reflex Free T4 2.02 uIU/mL (0.32-4.0)
[2025-01-22 15:28] LABS: Creatinine Urine 22.55 mg/dL; Microalbumin Urine < 5.0 mg/L
[2025-01-22 15:29] LABS: Erythrocyte Sedimentation Rate 6 MM/HR (0-15)
== END 2025-01-22 10:42 | disposition home or self-care (01) ==
LOC: HO.WFDLDS 10:41
PROVIDERS: Visit Provider Family Medicine
DX: Z00.00 Encounter for general adult medical examination without abnormal findings (principal); M77.8 Other enthesopathies, not elsewhere classified; I10 Essential (primary) hypertension; R74.8 Abnormal levels of other serum enzymes
CPT/HCPCS: 36415; 80053; 80061; 81003; 82043; 82570; 84075; 84443; 85025; 85652

== ENCOUNTER 2025-01-23 15:56 | Outpatient (AMB) | payer OTHER, SELFPAY ==
--- NOTE | 2025-01-23 16:17 | MHC.PC.OV ---
Vital Signs 01/23/25 16:21 01/23/25 16:27 Height 5 ft 7 in Weight 231 lb 2 oz BMI 36.2 BP 140/70 H 140/70 H Blood Pressure Location Lt brachial Lt brachial Position Sitting Sitting Respiration 16 Pulse 95 Pulse Source Pulse Oximeter Temp 100.2 F Temp Source Oral Pulse Oximetry (%) 98 Oxygen Delivery Method Room Air Intake Visit Reasons: Extended exam with f/u labs and health maint. Intake Note: patient is scheduled for extended exam Dish Person Required: Yes Dish Person Language: Marleni Dish Person Name: lucila [id number] Information Interpreted: clinical only Allergies No Known Allergies Allergy (Verified 01/23/25 16:25) Tobacco use date assessed: 04/24/24 Dental Screening Dental Screen Date: 11/29/23 HPI Extended exam with f/u labs and health maint. HPI Details 39 y/o male presents for an extended exam with f/u labs and health maintenance. Labs drawn 01/22/25. Reviewed labs with pt. RBC mildly low at 4.57. Elevated fasting glucose of 102. A1c today 01/23/25 5.4%. Elevated liver enzymes - AST 63, ALT 133. Triglycerides 291. TC 213. LDL 107. HDL 48. BP today 140/70, 95p. He is on metoprolol. He has complaints of a rash on his leg. Has complaints of an eye irritation. He has complaints of constipation. Complaints of ?hernia. HPI Comments History of Present Illness Details Documentation assistance for Denys Arroyo MD, was provided by Anup Vidales,? Silica Filter Operator on 01/23/2025 at 5:15 PM EST. I, Dr. Arroyo, have read, observed, and verified documentation. ?? [facility], [facility] Medical History (Updated 01/23/25 @ 17:27 by Anup Vidales) History of hepatitis 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 Mass in rectum (~2017) Hemorrhoids with complication (~2020) Hypertension Liver problem Surgical History No pertinent past surgical history Family History Mother Asthma Social History Household Members: Family Housing: House Are you a primary medical care administrator to a significant other at home: No Do you presently have visiting nurse or other home services: No 75 years or older and lives alone: No Alcohol intake: current Comment: on occasion Patient Tobacco Use Status: Former Tobacco user e-Cigarette/Vaping Use: Never Used service: No Current occupational status: 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 1. Little interest or pleasure in doing things: not at all 2. Feeling down, depressed, or hopeless: not at all 3. Trouble falling or staying asleep, or sleeping too much: not at all 4. Feeling tired or having little energy: not at all 5. Poor appetite or overeating: not at all 6. Feeling bad about yourself - or that you are a failure or have let yourself or your family down: not at all 7. Trouble concentrating on things, such as reading the newspaper or watching television: not at all 8. Moving or speaking so slowly that other people could have noticed. Or the opposite - being so fidgety or restless that you have been moving around a lot more than usual: not at all 9. Thoughts that you would be better off or of hurting yourself in some way: not at all Total score: 0 Source: Developed by Drs. Darryn Hernandez, Tammi Mckeon, Pankaj Wallace and colleagues, with an educational ventura from [employer]. Thrive Questionnaire Date Thrive assessed: 10/18/23 I am a: Patient What is your living situation today?: I have a steady place to live Within the past 12 months, did the food you bought not last and you didn't have the money to get more?: Never true Within the past 12 months, did you worry whether your food would run out before you got money to buy more?: Never true Do you have trouble paying for medicines?: No Do you have trouble getting transportation to medical appointments?: No Do you have trouble paying your heating and electricity bill?: No Do you have trouble taking care of your child, family member or friend?: No Do you have trouble with day-to-day activities such as bathing, preparing meals, shopping, managing finances, etc.?: No Are you currently unemployed and looking for a job?: No Are you interested in more education?: Yes Please select the resources that you would like help with: None Currently or been in a relationship where the following occur: No concerns reported THRIVE Score: 0 AUDIT C Alcohol Use Questionnaire (AUDIT-C) 1. How often do you have a drink containing alcohol?: Never Total Score: 0 IAN-7 AMB Questionnaire IAN-7 Date IAN - 7 assessed: 04/24/24 Feeling nervous, anxious, or on edge: 0 = Not at all Not being able to stop or control worryin = Not at all Worrying too much about different things: 0 = Not at all Trouble relaxin = Not at all Being so restless that it is hard to sit still: 0 = Not at all Becoming easily annoyed or irritable: 0 = Not at all Feeling afraid as if something awful might happen: 0 = Not at all Total IAN-7 score (0-4 normal; 5-9 mild; 10-14 moderate; 15-21 severe): 0 Source: Developed by Drs. Darryn Hernandez, Tammi Mckeon, Pankaj Wallace and colleagues, with an educational ventura from [employer]. Review of Systems Const Denies chills, Denies fatigue, Denies fever(s), Denies headache(s) and Denies weakness Eyes Denies change in vision and Reports irritation ENT Denies dizziness, Denies headache(s), Denies hearing loss, Denies nasal congestion, Denies sinus pain, Denies sinus pressure and Denies sore throat Card Denies chest pain, Denies lightheadedness, Denies dyspnea and Denies other (palpitations) Resp Denies cough, Denies dyspnea and Denies wheezing GI Denies abdominal pain, Denies melena, Denies hematochezia, Denies change in bowel habits, Denies dyspepsia and Denies nausea Denies hematuria and Denies dysuria Musc Denies abnormal gait, Denies myalgias, Denies arthralgias, Denies numbness and Denies tingling Skin/Breast Reports rash, Denies unusual bruising and Denies wounds Neuro Denies abnormal gait, Denies dizziness, Denies headache(s), Denies memory loss, Denies numbness, Denies Sensory deficit (Neuro), Denies tingling and Denies weakness Psych Denies anxiety, Denies depression and Denies memory loss Endo Denies cold intolerance, Denies fatigue, Denies heat intolerance, Denies polydipsia and Denies polyuria Mando/Lymph Denies easy bleeding and Denies easy bruising Aller/Immun Denies wheezing Physical exam (Primary Care) Vital Signs: Last Vital Signs Temp 100.2 F 01/23/25 16:21 Pulse 95 01/23/25 16:21 Resp 16 01/23/25 16:21 BP 140/70 H 01/23/25 16:27 Pulse Ox 98 01/23/25 16:21 Oxygen Delivery Method Room Air 01/23/25 16:21 BMI result Body Mass Index 36.2 Tobacco/Smoking Status: Tobacco use Status Tobacco use date assessed 04/24/24 01/23/25 16:19 Patient Tobacco Use Status Former Tobacco user 01/23/25 16:19 e-Cigarette/Vaping Use Never Used 01/23/25 16:19 PHQ-9: PHQ-9 Score PHQ-9: Total score 0 01/23/25 17:02 Thrive Assessment: Date of Thrive Assessment Date Thrive assessed 10/18/23 01/23/25 16:19 Currently or been in a relationship where the following occur: No concerns reported Const General: no acute distress, well developed, alert and awake Nutritional Appearance: well nourished Orientation/consciousness: patient oriented x3 HENMT Head: Yes normocephalic and Yes atraumatic Ears: hearing grossly normal bilaterally and TM's normal bilaterally General nose exam: Normal external nose present and Normal nares present Mouth: Normal oral and palatal mucosa present and moist mucous membranes Teeth and gingiva: dentition normal Throat: Yes posterior oropharynx normal Eyes General: appearance normal, both eyes and all related structures Pupils: Equal, round and reactive pupils present and Pupil accommodation reflex normal EOM: EOMs intact bilaterally Neck Neck: Yes normal visual inspection, Yes no lymphadenopathy and Yes trachea midline Thyroid: Thyroid normal Carotids: no bruits Lymphatic: no lymphadenopathy noted Chest Chest palpation & inspection: normal inspection of the chest Resp Effort & Inspection: normal respiratory effort Auscultation: clear to auscultation bilaterally Cardio Rate: regular rate Rhythm: regular rhythm Heart sounds: S1 normal heart sound present, S2 normal heart sound present, no gallops, no murmurs and no rubs Bruits: no abdominal aortic bruits and no carotid bruits GI Palpation (GI): No Abdominal aortic bruit present, Soft to palpation, nontender, No hepatosplenomegaly present and No Rebound tenderness present Auscultation: normal bowel sounds General: Yes no CVA tenderness Back/Spine/Pelvis Back: no CVA tenderness Cervical Spine: cervical ROM normal and No Cervical spine tenderness Thoracic/Lumbar Spine: thoraco-lumbar ROM normal, No pain with thoraco-lumbar ROM, No thoracic spinal tenderness and No lumbar spinal tenderness Skin Lesions: no lesions Rashes: no rashes Trauma: no lacerations or abrasions Wounds: no wounds Nails: normal Neuro General: patient oriented x3 Cranial nerves: Yes Equal, round and reactive pupils present Cognition (Neuro): normal cognition Gait exam (Neuro): Normal gait present Motor exam (neuro): 5/5 motor strength present throughout Sensory Exam: No Sensory deficit (Neuro) Deep tendon reflexes (DTR's): Right patellar reflex intensity grade: 2+ and Left patellar reflex intensity grade: 2+ Extrem General: Yes normal to inspection and No edema Psych Appearance: grossly normal Affect: normal affect Attitude: cooperative Thought process: Normal thought process present Results AMB Hemoglobin A1c AMB Hemoglobin A1c 5.4 % Last Edit by MORE Garcia on 01/23/25 17:10 Results Reviewed Results Reviewed: Laboratory Last Values Hgb A1c (Clinic) 5.4 % (4.0-6.0) 01/23/25 17:09 Coding Level of Care Code Est Pt Level 4 (25781) Diagnoses Abdominal mass R19.00 Hypertension I10 Periumbilic swelling, mass or lump R19.05 Hyperlipidemia E78.5 Elevated liver enzymes R74.8 Rash R21 Constipation K59.00 Change in hearing H91.90 Elevated fasting blood sugar R73.01 Eye irritation H57.89 Adult general medical examination Z00.00 Assessment & Plan Assessment & Plan (1) Abdominal mass: Code(s): R19.00 - Intra-abdominal and pelvic swelling, mass and lump, unspecified site Category: Medical Plan: Small?supraumbilical?abdominal?lump?at?11:00?o'clock Will?check?ultrasound (2) Hypertension: Code(s): I10 - Essential (primary) hypertension Category: Medical Plan: Blood?pressure?is?still?high?despite?using?metoprolol. Adding?losartan Will?follow-up at?next?visit (3) Periumbilic swelling, mass or lump: Code(s): R19.05 - Periumbilic swelling, mass or lump Category: Medical Plan: As?above,?will?check?ultrasound (4) Hyperlipidemia: Code(s): E78.5 - Hyperlipidemia, unspecified Category: Medical Plan: Lipids?are?elevated?mildly. Triglycerides?are?high Encouraged?dietary?changes Will?follow (5) Elevated liver enzymes: Code(s): R74.8 - Abnormal levels of other serum enzymes Category: Medical Plan: Followed?by?Gastroenterology Liver?enzymes?have?decreased Follow-up?with?Gastroenterology?as?recommended (6) Rash: Code(s): R21 - Rash and other nonspecific skin eruption Category: Medical Plan: Rash?on?legs?and?groin Will?give?him?a?trial?of?betamethasone-clotrimazole Referred?to?dermatology (7) Constipation: Code(s): K59.00 - Constipation, unspecified Category: Medical Plan: Increase?hydration Soluble?fiber?tablet (8) Change in hearing: Code(s): H91.90 - Unspecified hearing loss, unspecified ear Category: Medical Plan: Referred?for?audiology?testing (9) Elevated fasting blood sugar: Code(s): R73.01 - Impaired fasting glucose Category: Medical Plan: A1c?still?within?normal?range Encouraged?diet?lower?in?sugars?and?starches Will?continue?to?monitor (10) Eye irritation: Code(s): H57.89 - Other specified disorders of eye and adnexa Category: Medical Plan: Will?give?him?a?script?for?olopatadine (11) Adult general medical examination: Code(s): Z00.00 - Encounter for general adult medical examination without abnormal findings Category: Medical Plan: 39-year-old?male?presents?for?an?extended?exam Orders: Orders AMB Hemoglobin A1c Today R73.01 - Impaired fasting glucose US abdomen limited Today R19.00 - Intra-abdominal and pelvic swelling, mass and lump, unspecified site Referrals Dermatology Referral R21 - Rash and other nonspecific skin eruption Audiology Referral H91.90 - Unspecified hearing loss, unspecified ear Medications: New clotrimazole-betamethasone 1-0.05 % 1 appl topical BID 2 weeks 45 grams 0RF olopatadine 0.7% 1 drp ophthalmic (eye) BEDTIME 30 days 5 mL 0RF losartan 25 mg PO DAILY 30 days 30 tabs 3RF calcium polycarbophil (FiberCon) 625 mg PO DAILY 30 days 30 tabs 2RF
[2025-01-23 16:21] VITALS: BP 140/70; PULSE 95; RESP 16; TEMP 37.9; O2SAT 98; BMI 36.2
[2025-01-23 16:27] VITALS: BP 140/70
== END 2025-01-23 17:23 | disposition home or self-care (01) ==
LOC: HO.HMCFM 15:57
PROVIDERS: PCP Family Medicine; Visit Provider Family Medicine
DX: R19.00 Intra-abdominal and pelvic swelling, mass and lump, unspecified site (principal); I10 Essential (primary) hypertension; R19.05 Periumbilic swelling, mass or lump; E78.5 Hyperlipidemia, unspecified; R74.8 Abnormal levels of other serum enzymes; R21 Rash and other nonspecific skin eruption; K59.00 Constipation, unspecified; H91.90 Unspecified hearing loss, unspecified ear; R73.01 Impaired fasting glucose; H57.89 Other specified disorders of eye and adnexa; Z00.00 Encounter for general adult medical examination without abnormal findings

== ENCOUNTER → 2025-01-23 15:56 | Outpatient (BNVA) | payer OTHER, SELFPAY | PROVIDERS: PCP Family Medicine; Visit Provider Family Medicine | DX: R19.00 Intra-abdominal and pelvic swelling, mass and lump, unspecified site (principal); I10 Essential (primary) hypertension; E78.5 Hyperlipidemia, unspecified; R74.8 Abnormal levels of other serum enzymes; R19.05 Periumbilic swelling, mass or lump; R21 Rash and other nonspecific skin eruption; K59.00 Constipation, unspecified; H91.90 Unspecified hearing loss, unspecified ear; R73.01 Impaired fasting glucose; H57.89 Other specified disorders of eye and adnexa | CPT/HCPCS: 83036; 99212 ==

== ENCOUNTER 2025-03-13 10:26 | Outpatient (REF) | payer OTHER, SELFPAY ==
--- NOTE | ~2025-03-13 | US_ITS ---
EXAMINATION: US ABDOMEN LIMITED CLINICAL INFORMATION: Swelling, mass, lump.. COMPARISON: None available. TECHNIQUE: Real-time ultrasound of the region of concern using a linear transducer with the grayscale technique. FINDINGS: No solid or cystic lesion in the periumbilical region of concern. US/US abdomen limited IMPRESSION: Negative exam. Electronically signed by: Juan Manriquez MD 03/13/2025 11:04 AM EDT
== END 2025-03-13 10:27 | disposition home or self-care (01) ==
LOC: HO.US 10:26
PROVIDERS: PCP Family Medicine; Visit Provider Family Medicine
DX: R19.00 Intra-abdominal and pelvic swelling, mass and lump, unspecified site (principal)
CPT/HCPCS: 76705

== ENCOUNTER → 2025-03-13 10:27 | Outpatient (BNV) | payer OTHER, SELFPAY | PROVIDERS: PCP Family Medicine; Visit Provider Radiology Diagnostic Radiology | DX: R19.09 Other intra-abdominal and pelvic swelling, mass and lump (principal) | CPT/HCPCS: 76705 ==

== ENCOUNTER 2025-03-17 09:39 | Outpatient (REF) | payer OTHER, SELFPAY | END 2025-03-17 09:40 | disposition home or self-care (01) | LOC: HO.SH 09:39 | PROVIDERS: Visit Provider Family Medicine | DX: Z01.118 Encounter for examination of ears and hearing with other abnormal findings (principal); H93.13 Tinnitus, bilateral | CPT/HCPCS: 92553; 92557; 92567; 92588 ==

== ENCOUNTER 2025-03-25 15:51 | Outpatient (AMB) | payer OTHER, SELFPAY ==
--- NOTE | 2025-03-25 16:04 | A.OFFVIS_ITS ---
Vital Signs 03/25/25 16:20 Height 5 ft 7 in Weight 230 lb BMI 36.0 BP 142/86 H Blood Pressure Location Rt brachial Position Sitting Pulse 98 Pulse Source Pulse Oximeter Pulse Oximetry (%) 96 Oxygen Delivery Method Room Air Intake Visit Reasons: 3 mo elevated liver enzymes Intake Note: ESTABLISHED PATIENT for mgmt of liver abn and GERD. CC: C.O. worsening reflux again. Pt states that he had been doing well with the nexium but has unfortunately regressed to where he started with his GERD tx. 10 severity of burning, almost every day. Pt comments that he never received a phone call to advise him of the NM study being scheduled. Pt did not intentionally no show. Pharmacy; [facility]. Oracle Adf Developer Required: Yes Oracle Adf Developer Services: Oracle Adf Developer Present Oracle Adf Developer Name: Di [id number] Information Interpreted: clinical only Accompanied by: Self / Same As Patient Allergies No Known Allergies Allergy (Verified 03/25/25 16:10) HPI HPI 3 mo elevated liver enzymes: Details: LAST VISIT: Elevated liver enzymes Acid reflux Transaminitis Hepatic steatosis Postprandial epigastric pain RUQ abdominal pain History of hepatitis Plan Patient reports occasional postprandial epigastric pain as well as right upper quadrant pressure. Will send patient her HIDA scan. Will recheck a liver panel, DNA hemochromatosis, high ferritin last time will repeat. Discussion with patient about dietary choices. Low fat, low salt, low carb and high-protein diet. Exercise and weight loss recommended. Follow-up in 3 months, sooner on as needed basis. Patient is agreeable to this plan and verbalizes understanding of instructions. He was given the opportunity to ask questions and all questions answered. ? Thank you for allowing me to participate in his care Orders Orders Liver Panel 12/27/24 R74.01 NM hepatobiliary w pharm 12/27/24 R10.11 DNA Analysis Hemochromatosis 12/27/24 R79.89 Ferritin 12/27/24 R74.8 TODAY'S VISIT Patient is here today for follow-up and to discuss lab results. HIDA scan never performed. Patient forgot. Patient reports frequent abdominal bloating. Patient denies any postprandial right upper quadrant discomfort at this time. Will cancel this can. Patient admits that he is not following diet as discussed last time. He continues to eat fast food meals. Patient gained almost 20 lb in the last year. His liver enzymes continue to be elevated. Patient admits to occasional alcohol intake. Patient denies melena, hematochezia. Patient reports occasional acid reflux without dyspepsia, dysphagia or odynophagia. Patient reports that [email or web address] is not working for him. [facility] Medical History History of hepatitis 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 Mass in rectum (~2017) Hemorrhoids with complication (~2020) Hypertension Liver problem Surgical History No pertinent past surgical history Family History Mother Asthma Social History Household Members: Family Housing: House Are you a primary animal caregiver to a significant other at home: No Do you presently have visiting nurse or other home services: No Alcohol intake: current Comment: on occasion Patient Tobacco Use Status: Former Tobacco user e-Cigarette/Vaping Use: Never Used service: No Current occupational status: employed 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 Cognitive needs: No Hearing needs: No Vision needs: No Review of Systems Const Denies weight gain and Denies weight loss ENT Reports no additional complaints, Denies dysphagia and Denies odynophagia Card Reports no additional complaints Resp Reports no additional complaints GI Reports abdominal pain (LLQ), Denies belching, Denies melena, Reports bloating, Denies change in bowel habits, Reports constipation, Denies dysphagia, Denies excessive flatus, Denies dyspepsia, Reports heartburn, Denies diarrhea, Reports loose stools, Denies nausea, Denies odynophagia and Denies vomiting Reports no additional complaints Musc Reports no additional complaints Neuro Reports no additional complaints Psych Reports no additional complaints Endo Reports no additional complaints Physical Exam Vital Signs: Last Vital Signs Pulse 98 03/25/25 16:20 BP 142/86 H 03/25/25 16:20 Pulse Ox 96 03/25/25 16:20 Oxygen Delivery Method Room Air 03/25/25 16:20 BMI result Body Mass Index 36.0 Const General: healthy appearing and no acute distress Nutritional Appearance: obese Orientation/consciousness: patient oriented x3 Resp Effort & Inspection: normal respiratory effort, able to speak in complete sentences, no tracheal deviation and symmetric chest movement Auscultation: clear to auscultation bilaterally Cardio Rate: regular rate GI Inspection: Yes normal to inspection, No distended and Yes obesity Palpation (GI): Soft to palpation, not firm, nontender and No hepatosplenomegaly present Auscultation: normal bowel sounds General: Yes no CVA tenderness Back/Spine/Pelvis Back: no CVA tenderness Skin General skin exam: elasticity normal, turgor normal and dry skin Neuro General: patient oriented x3 Psych Appearance: grossly normal Mental Status: mental status grossly normal Results Reviewed Results Reviewed: Laboratory Tests 05/27/24 08/28/24 01/22/25 13:00 14:29 10:44 Hgb A1c (Clinic) AST 73 H 63 H ALT 106 H 133 H Alkaline Phosphatase 162 H 120 H Alpha Fetoprotein 3.8 01/23/25 17:09 Hgb A1c (Clinic) 5.4 AST ALT Alkaline Phosphatase Alpha Fetoprotein DNA HEMOCHROMATOSIS STUDY NEGATIVE Assessment & Plan Assessment & Plan (1) Elevated liver enzymes: Code(s): R74.8 - Abnormal levels of other serum enzymes Category: Medical (2) Acid reflux: Code(s): K21.9 - Gastro-esophageal reflux disease without esophagitis Category: Medical Qualifiers: Esophagitis presence: esophagitis presence not specified Qualified Code(s): K21.9 - Gastro-esophageal reflux disease without esophagitis (3) History of hepatitis: Code(s): Z86.19 - Personal history of other infectious and parasitic diseases Category: Medical (4) Transaminitis: Code(s): R74.01 - Elevation of levels of liver transaminase levels (5) Hepatic steatosis: Code(s): K76.0 - Fatty (change of) liver, not elsewhere classified (6) Postprandial epigastric pain: Code(s): R10.13 - Epigastric pain (7) RUQ abdominal pain: Code(s): R10.11 - Right upper quadrant pain Plan Patient reports occasional acid reflux will send him for upper GI with barium swallow. We will repeat liver panel in 6 months. Long discussion with patient about weight loss is. Low fat, low salt, low carb and high-protein diet discussed with patient. List given to patient. Patient will stop Nexium and wi ll start pantoprazole in the morning and sucralfate at bedtime. Again weight loss and exercise discussed with patient. Patient will follow-up in the office 6 months, sooner on as needed basis. Patient is agreeable to current plan of care and verbalizes understanding of instructions. He was given the opportunity to ask questions and all questions answered. Thank you for allowing me to participate in his care Orders: Orders FL upper GI w Ba Swallow 03/25/25 K21.9 - Gastro-esophageal reflux disease without esophagitis Liver Panel 6 Months R74.01 - Elevation of levels of liver transaminase levels Medications: New sucralfate 10 mL PO BEDTIME 400 mL 3RF K21.9 - Gastro-esophageal reflux disease without esophagitis pantoprazole take one tablet half an hour before breakfast 40 mg PO DAILY 30 tabs 3RF K21.9 - Gastro-esophageal reflux disease without esophagitis Discontinued esomeprazole magnesium Discontinued Reason: Doctor's Order 40 mg PO DAILY 90 caps 3RF K21.9 - Gastro-esophageal reflux disease without esophagitis Coding Level of Care Code Est Pt Level 4 (27357) Complex EM visit Add On G2211 Diagnoses Elevated liver enzymes R74.8 Gastroesophageal reflux disease, unspecified whether esophagitis present K21.9 Esophagitis presence: esophagitis presence not specified History of hepatitis Z86.19 Transaminitis R74.01 Hepatic steatosis K76.0 Postprandial epigastric pain R10.13 RUQ abdominal pain R10.11 Time Spent (min) 40 Comment 25 minutes spent with patient and additional 15 minutes spent reviewing his records
[2025-03-25 16:20] VITALS: BP 142/86; PULSE 98; O2SAT 96; BMI 36.0
== END 2025-03-25 16:51 | disposition home or self-care (01) ==
LOC: HO.HGI 15:52
PROVIDERS: PCP Family Medicine; Visit Provider Nurse Practitioner Family
DX: R74.8 Abnormal levels of other serum enzymes (principal); K21.9 Gastro-esophageal reflux disease without esophagitis; Z86.19 Personal history of other infectious and parasitic diseases; R74.01 Elevation of levels of liver transaminase levels; K76.0 Fatty (change of) liver, not elsewhere classified; R10.13 Epigastric pain; R10.11 Right upper quadrant pain
CPT/HCPCS: 99214; G2211

== ENCOUNTER → 2025-03-25 15:51 | Outpatient (BNVA) | payer OTHER, SELFPAY | PROVIDERS: PCP Family Medicine; Visit Provider Nurse Practitioner Family | DX: K21.9 Gastro-esophageal reflux disease without esophagitis (principal); K76.0 Fatty (change of) liver, not elsewhere classified; R74.8 Abnormal levels of other serum enzymes; R74.01 Elevation of levels of liver transaminase levels; R10.13 Epigastric pain; R10.11 Right upper quadrant pain; Z86.19 Personal history of other infectious and parasitic diseases | CPT/HCPCS: 99212 ==

== ENCOUNTER 2025-04-03 13:22 | Outpatient (AMB) | payer OTHER, SELFPAY ==
--- NOTE | 2025-04-03 13:26 | MHC.PC.OV ---
Vital Signs 04/03/25 13:35 Height 5 ft 7 in Weight 228 lb 4 oz BMI 35.7 BP 130/70 Blood Pressure Location Lt brachial Position Sitting Respiration 16 Pulse 97 Pulse Source Pulse Oximeter Temp 97.7 F Temp Source Oral Pulse Oximetry (%) 98 Oxygen Delivery Method Room Air Intake Visit Reasons: f/u Ultra sound and Type II diabetes Intake Note: patient has follow-up for ultrasound reading patient has no concern other than know the result of MRI Direct Support Staff Member Required: Yes Direct Support Staff Member Name: Tierra [id number] Information Interpreted: clinical only Allergies No Known Allergies Allergy (Verified 04/03/25 13:30) Medication List - Last Reconciled 04/03/25 by Denys Arroyo MD calcium polycarbophil (FiberCon) 625 mg PO DAILY 30 days cholecalciferol (vitamin D3) 25 mcg PO DAILY diclofenac sodium 1% (Arthritis Pain (diclofenac)) 4 grams topical QID ibuprofen 400 mg PO Q8H PRN 30 days losartan 25 mg PO DAILY 30 days methylcellulose (laxative) (Citrucel) 500 mg PO DAILY metoprolol succinate ER 50 mg PO BID 30 days olopatadine 0.7% 1 drp ophthalmic (eye) BEDTIME 30 days pantoprazole 40 mg PO DAILY sennosides (Natural Senna Laxative) 17.2 mg (2 x 8.6 mg) PO BEDTIME sucralfate 10 mL PO BEDTIME Tobacco use date assessed: 04/24/24 Dental Screening Dental Screen Date: 11/29/23 HPI f/u Ultra sound and Type II diabetes HPI Details 40 y/o male presents to f/u ultrasound to rule out hernia due to supraumbilical lump. Also f/u hypertension. Blood pressure today 130/70, 97p. He is on losartan 25mg, metoprolol 50mg b.i.d. Abdomen ultrasound 03/13/25 negative. Has complaints of a rash on arms PFSH Medical History History of hepatitis 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 Mass in rectum (~2017) Hemorrhoids with complication (~2020) Hypertension Liver problem Surgical History No pertinent past surgical history Family History Mother Asthma Social History Household Members: Family Housing: House Are you a primary home health care case manager to a significant other at home: No Do you presently have visiting nurse or other home services: No 75 years or older and lives alone: No Alcohol intake: current Comment: on occasion Patient Tobacco Use Status: Former Tobacco user e-Cigarette/Vaping Use: Never Used service: No Current occupational status: employed 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 Cognitive needs: No Hearing needs: No Vision needs: No Questionnaire Thrive Questionnaire Date Thrive assessed: 01/23/25 I am a: Patient What is your living situation today?: I have a steady place to live Within the past 12 months, did the food you bought not last and you didn't have the money to get more?: Never true Within the past 12 months, did you worry whether your food would run out before you got money to buy more?: Never true Do you have trouble paying for medicines?: No Do you have trouble getting transportation to medical appointments?: No Do you have trouble paying your heating and electricity bill?: No Do you have trouble taking care of your child, family member or friend?: No Do you have trouble with day-to-day activities such as bathing, preparing meals, shopping, managing finances, etc.?: No Are you currently unemployed and looking for a job?: No Are you interested in more education?: Yes Please select the resources that you would like help with: None Currently or been in a relationship where the following occur: No concerns reported THRIVE Score: 0 IAN-7 AMB Questionnaire IAN-7 Date IAN - 7 assessed: 04/24/24 Source: Developed by Drs. Darryn Hernandez, Tammi Mckeon, Pankaj Wallace and colleagues, with an educational ventura from [employer]. Review of Systems Const Denies chills, Denies fatigue, Denies fever(s), Denies headache(s) and Denies weakness ENT Denies dizziness and Denies headache(s) Card Denies dyspnea Resp Denies cough, Denies dyspnea, Denies wheezing and Denies other (shortness of breath) Musc Denies numbness and Denies tingling Neuro Denies dizziness, Denies headache(s), Denies numbness, Denies tingling and Denies weakness Psych Denies anxiety and Denies depression Endo Denies fatigue Aller/Immun Denies wheezing Physical exam (Primary Care) Vital Signs: Last Vital Signs Temp 97.7 F 04/03/25 13:35 Pulse 97 04/03/25 13:35 Resp 16 04/03/25 13:35 BP 130/70 04/03/25 13:35 Pulse Ox 98 04/03/25 13:35 Oxygen Delivery Method Room Air 04/03/25 13:35 BMI result Body Mass Index 35.7 Tobacco/Smoking Status: Tobacco use Status Tobacco use date assessed 04/24/24 04/03/25 13:26 Patient Tobacco Use Status Former Tobacco user 04/03/25 13:26 e-Cigarette/Vaping Use Never Used 04/03/25 13:26 Thrive Assessment: Date of Thrive Assessment Date Thrive assessed 01/23/25 04/03/25 13:26 Currently or been in a relationship where the following occur: No concerns reported Const General: well developed; No acute distress Nutritional Appearance: well nourished Orientation/consciousness: patient oriented x3 HENMT Head: Yes normocephalic and Yes atraumatic Eyes General: appearance normal, both eyes and all related structures Pupils: Equal, round and reactive pupils present EOM: EOMs intact bilaterally Resp Effort & Inspection: normal respiratory effort Skin Other: Follicular rash bilateral forearms Neuro General: patient oriented x3 and gait normal Cranial nerves: Yes Equal, round and reactive pupils present Psych Affect: normal affect Coding Level of Care Code Est Pt Level 4 (43607) Diagnoses Hypertension I10 Periumbilic swelling, mass or lump R19.05 Elevated fasting blood sugar R73.01 Folliculitis L73.9 Assessment & Plan Assessment & Plan (1) Hypertension: Code(s): I10 - Essential (primary) hypertension Category: Medical Plan: blood pressure is fairly well controlled but he has been out of his beta-juana. Continue losartan and I will refill metoprolol. Take both medications as prescribed (2) Periumbilic swelling, mass or lump: Code(s): R19.05 - Periumbilic swelling, mass or lump Category: Medical Plan: supraumbilical tenderness to palpation and small lump or mass palpated this may be fascia or a calcification of the muscle may be a hernia not seen on ultrasound. 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
[2025-04-03 13:35] VITALS: BP 130/70; PULSE 97; RESP 16; TEMP 36.5; O2SAT 98; BMI 35.7
== END 2025-04-03 14:29 | disposition home or self-care (01) ==
LOC: HO.HMCFM 13:23
PROVIDERS: PCP Family Medicine; Visit Provider Family Medicine
DX: I10 Essential (primary) hypertension (principal); R19.05 Periumbilic swelling, mass or lump; R73.01 Impaired fasting glucose; L73.9 Follicular disorder, unspecified

== ENCOUNTER → 2025-04-03 13:22 | Outpatient (BNVA) | payer OTHER, SELFPAY | PROVIDERS: PCP Family Medicine; Visit Provider Family Medicine | DX: I10 Essential (primary) hypertension (principal); R19.05 Periumbilic swelling, mass or lump; R73.01 Impaired fasting glucose; L73.9 Follicular disorder, unspecified; Z79.899 Other long term (current) drug therapy | CPT/HCPCS: 99212 ==

== ENCOUNTER 2025-07-15 09:47 | Outpatient (REF) | payer OTHER, SELFPAY ==
--- NOTE | ~2025-07-15 | FL_ITS ---
EXAMINATION: XR UPPER GI SERIES WITH BARIUM SWALLOW CLINICAL INFORMATION: Gastroesophageal reflux disease without esophagitis per COMPARISON: None available. TECHNIQUE: Routine upper GI air contrast study was performed in upright and lying position. FINDINGS: Following oral administration of thick barium and effervescent granules in upright position there is normal propagationof bolus from the oral cavity through the pharynx, esophagus into stomach. No obstruction, narrowing or stricture seen. On placing patient supine and prone lying the course, caliber and peristalsis of the stomach, duodenal bulb and sweep is normal. The mucosal pattern of stomach and duodenum is normal. There is a mild gastroesophageal reflux without hiatal hernia. FLUOROSCOPY TIME: 1 minute 57 seconds. DOSE AREA PRODUCT: 2434 uGy-m2 (microgray-meter squared) FL/FL upper GI w air w Ba Swallow IMPRESSION: Mild gastroesophageal reflux without hiatal hernia. Electronically signed by: Rajan Olguin MD 07/15/2025 02:34 PM EDT
--- OUTSIDE RECORDS SUMMARY | 2025-07-15 11:26 | XMS_ITS ---
Author Name [facility] Organization Unknown Care Team Organization Name Specialty Phone Email Start Date End Da te [facility] 07/13/2023 06/24/2024
== END 2025-07-15 09:48 | disposition home or self-care (01) ==
LOC: HO.XRAY 09:47
PROVIDERS: PCP Family Medicine; Visit Provider Nurse Practitioner Family
DX: K21.9 Gastro-esophageal reflux disease without esophagitis (principal)
CPT/HCPCS: 74246

== ENCOUNTER → 2025-07-15 09:49 | Outpatient (BNV) | payer OTHER, SELFPAY | PROVIDERS: PCP Family Medicine; Visit Provider Radiology Diagnostic Radiology | DX: K21.9 Gastro-esophageal reflux disease without esophagitis (principal) | CPT/HCPCS: 74246 ==

== ENCOUNTER 2025-08-11 10:49 | Outpatient (AMB) | payer OTHER, SELFPAY ==
--- NOTE | 2025-08-11 11:02 | A.OFFVIS_ITS ---
Vital Signs 3 08/11/25 11:07 Height 5 ft 7 in Weight 223 lb BMI 34.9 BP 160/90 H Blood Pressure Location Lt brachial Position Sitting Pulse 90 Intake Visit Reasons: Periumbilic swelling, mass or lump Intake Note: Patient is seen in office for evaluation of periumbilical swelling-lump. Pt c/o: has a lump around the umbilical area, since the beginning of summer, hard to the touch denies any pain, no similar issues in the past, denies n/v/d/c us:03/13/25 Research Program Manager Required: Yes Research Program Manager Language: Chilean Research Program Manager Services: Research Program Manager Present Research Program Manager Name: [id number] Information Interpreted: non-clinical & clinical Accompanied by: Self / Same As Patient Allergies No Known Allergies Allergy (Verified 08/11/25 11:04) Medication List - Last Reconciled 08/11/25 by Cipriano Andres MD calcium polycarbophil (FiberCon) 625 mg PO DAILY 30 days cholecalciferol (vitamin D3) 25 mcg PO DAILY diclofenac sodium 1% (Arthritis Pain (diclofenac)) 4 grams topical QID ibuprofen 400 mg PO Q8H PRN 30 days losartan 25 mg PO DAILY 30 days methylcellulose (laxative) (Citrucel) 500 mg PO DAILY metoprolol succinate ER 50 mg PO BID 30 days olopatadine 0.7% 1 drp ophthalmic (eye) BEDTIME 30 days pantoprazole 40 mg PO QAM sennosides (Natural Senna Laxative) 17.2 mg (2 x 8.6 mg) PO BEDTIME sucralfate 10 mL PO BEDTIME sulfamethoxazole-trimethoprim 800-160 mg (Bactrim DS) 1 tab PO Q12H 7 days HPI Comments Details: 40-year-old male patient presenting for evaluation of a lump located just above the umbilicus. This has been present since spring time in has persisted since then. He denies any nausea, vomiting, fever or chills. He denies any prior surgery in this location. He does report some pain when the lump is palpated. He notes the lump to increase in size after eating or drinking. Recent workup with ultrasound did not reveal any hernia in this location. He does report doing heavy lifting on a daily basis. 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 Mass in rectum (~2017) Hemorrhoids with complication (~2020) Hypertension Liver problem Surgical History (Updated 08/11/25 @ 11:05 by HOWIE Leo) History of hemorrhoidectomy Family History Mother Asthma Social History Household Members: Family Housing: House Are you a primary healthcare financial analyst to a significant other at home: No Do you presently have visiting nurse or other home services: No 75 years or older and lives alone: No Alcohol intake: current Comment: on occasion Patient Tobacco Use Status: Former Tobacco user e-Cigarette/Vaping Use: Never Used service: No Current occupational status: employed 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 Cognitive needs: No Hearing needs: No Vision needs: No Review of Systems Const All systems reviewed & are unremarkable except as noted in HPI and below Physical Exam Const General: cooperative and no acute distress Nutritional Appearance: well nourished Orientation/consciousness: patient oriented x3 Limitations: no limitations HEENT Head: Yes normocephalic and Yes atraumatic Ears: hearing grossly normal bilaterally Resp Effort & Inspection: normal respiratory effort, no audible wheezes, no cough and no respiratory distress Cardio Jugular venous distension: no JVD GI Other: Palpable lump located approximately 3 cm above the umbilicus as noted below. Lump does increase in size with Valsalva maneuvers but is not reducible completely. The lump measures approximately 3 cm in diameter. Inspection: Yes normal to inspection Abdomen image: 2 1. 3 cm lump located above the umbilicus, increases with Valsalva maneuvers suggestive of a ventral hernia. Skin Other: Warm, dry, no rash Neuro General: patient oriented x3 Extrem General: Yes no clubbing, cyanosis or edema Assessment & Plan Assessment & Plan (1) Ventral hernia: Code(s): K43.9 - Ventral hernia without obstruction or gangrene Category: Medical Qualifiers: Obstruction and gangrene presence: without obstruction or gangrene Q ualified Code(s): K43.9 - Ventral hernia without obstruction or gangrene Plan 32-year-old male patient presenting with a palpable lump located above the umbilicus. On examination of the lump is noted to increase in size with Valsalva maneuvers. I am unable to reduce the lump completely. Findings are most consistent with a ventral hernia. I recommended repair of this ventral hernia with mesh and after discussion of the procedure, risks, and alternatives, he consents to the surgery. He will be scheduled as a short-stay surgery. Coding Level of Care Code New Pt Level 4 (62830) Diagnoses Ventral hernia without obstruction or gangrene K43.9 Obstruction and gangrene presence: without obstruction or gangrene
[2025-08-11 11:07] VITALS: BP 160/90; PULSE 90; BMI 34.9
== END 2025-08-11 11:15 | disposition home or self-care (01) ==
LOC: HO.HGS 10:50
PROVIDERS: PCP Family Medicine; Visit Provider Surgery
DX: K43.9 Ventral hernia without obstruction or gangrene (principal)
CPT/HCPCS: 99204

== ENCOUNTER → 2025-08-11 10:49 | Outpatient (BNVA) | payer OTHER, SELFPAY | PROVIDERS: PCP Family Medicine; Visit Provider Surgery | DX: K43.9 Ventral hernia without obstruction or gangrene (principal) | CPT/HCPCS: 99202 ==

== ENCOUNTER 2025-09-26 15:40 | Outpatient (AMB) | payer OTHER, SELFPAY ==
--- NOTE | 2025-09-26 15:41 | A.OFFVIS_ITS ---
Vital Signs 09/26/25 15:48 Height 5 ft 7 in Weight 218 lb BMI 34.1 BP 138/68 Blood Pressure Location Rt brachial Position Sitting Pulse 102 H Pulse Source Pulse Oximeter Pulse Oximetry (%) 98 Oxygen Delivery Method Room Air Intake Visit Reasons: 30 m. [place] int. GERD mgmt. Intake Note: ESTABLISHED PATIENT for liver abnormalities + GERD mgmt. Chief Complaint; Pt denies any new GI concerns or sx today. Confirms he is still taking the currently rx'd therapies w/o complication. [employer] Required: Yes [employer] Services: [employer] Present [employer] Name: Jessica [id number] Information Interpreted: clinical only Accompanied by: Self / Same As Patient Allergies No Known Allergies Allergy (Verified 09/26/25 15:41) HPI HPI 30 m. [place] int. GERD mgmt.: Details: LAST VISIT: Elevated liver enzymes Acid reflux History of hepatitis Transaminitis Hepatic steatosis Postprandial epigastric pain RUQ abdominal pain Plan Patient reports occasional acid reflux will send him for upper GI with barium swallow. We will repeat liver panel in 6 months. Long discussion with patient about weight loss is. Low fat, low salt, low carb and high-protein diet discussed with patient. List given to patient. Patient will stop Nexium and will start pantoprazole in the morning and sucralfate at bedtime. Again weight loss and exercise discussed with patient. Patient will follow-up in the office 6 months, sooner on as needed basis. Patient is agreeable to current plan of care and verbalizes understanding of instructions. He was given the opportunity to ask questions and all questions answered. ? Thank you for allowing me to participate in his care Orders FL upper GI w Ba Swallow 03/25/25 K21.9 Liver Panel 6 Months R74.01 New sucralfate 10 mL PO BEDTIME 400 mL 3RF K21.9 pantoprazole take one tablet half an hour before breakfast 40 mg PO DAILY 30 tabs 3RF K21.9 Discontinued esomeprazole magnesium Discontinued Reason: Doctor's Order 40 mg PO DAILY 90 caps 3RF K21.9 TODAY'S VISIT: Patient is here today for follow-up. Patient reports that he has been doing well since last visit. Patient last few lb since last visit. He is taking pantoprazole in the morning and sucralfate at bedtime. However patient does report that he no longer has sucralfate and no available refills. Patient reports that he was doing well when he was taking it. Patient denies any dyspepsia, dysphagia or odynophagia. Denies any melena, hematochezia, unintentional weight loss or ribbon like stools. Upper GI series discussed with patient. Patient forgot to get his blood work done. We needed to repeat liver enzymes, patient was encouraged to get it done next week or as soon as he is able to. Patient denies any GI concerning symptoms. Overall patient reports that he has been feeling well since last visit. Some dietary changes made. [facility] Medical History Back pain GERD (gastroesophageal reflux disease) History of hepatitis 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 Mass in rectum (~2017) Hemorrhoids with complication (~2020) Hypertension Liver problem Surgical History H/O colonoscopy History of hemorrhoidectomy Family History Mother Asthma Social History Household Members: Family Housing: House Are you a primary care manager to a significant other at home: No Do you presently have visiting nurse or other home services: No 75 years or older and lives alone: No Alcohol intake: current Alcohol intake frequency: does not drink Comment: on occasion Patient Tobacco Use Status: Former Tobacco user e-Cigarette/Vaping Use: Never Used service: No Current occupational status: employed 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 Cognitive needs: No Hearing needs: No Vision needs: No Review of Systems Const Denies weight gain and Denies weight loss ENT Reports no additional complaints, Denies dysphagia and Denies odynophagia Card Reports no additional complaints Resp Reports no additional complaints GI Reports abdominal pain (LLQ), Denies belching, Denies melena, Reports bloating, Denies change in bowel habits, Reports constipation, Denies dysphagia, Denies excessive flatus, Denies dyspepsia, Reports heartburn, Denies diarrhea, Reports loose stools, Denies nausea, Denies odynophagia and Denies vomiting Reports no additional complaints Musc Reports no additional complaints Neuro Reports no additional complaints Psych Reports no additional complaints Endo Reports no additional complaints Physical Exam Vital Signs: Last Vital Signs Pulse 102 H 09/26/25 15:48 BP 138/68 09/26/25 15:48 Pulse Ox 98 09/26/25 15:48 Oxygen Delivery Method Room Air 09/26/25 15:48 BMI result Body Mass Index 34.1 Const General: healthy appearing and no acute distress Nutritional Appearance: obese Orientation/consciousness: patient oriented x3 Resp Effort & Inspection: normal respiratory effort, able to speak in complete sentences, no tracheal deviation and symmetric chest movement Auscultation: clear to auscultation bilaterally Cardio Rate: regular rate GI Inspection: Yes normal to inspection, No distended and Yes obesity Palpation (GI): Soft to palpation, not firm, nontender and No hepatosplenomegaly present Auscultation: normal bowel sounds General: Yes no CVA tenderness Back/Spine/Pelvis Back: no CVA tenderness Skin General skin exam: elasticity normal, turgor normal and dry skin Neuro General: patient oriented x3 Psych Appearance: grossly normal Mental Status: mental status grossly normal Results Reviewed Results Reviewed: UPPER GI SERIES FL/FL upper GI w air w Ba Swallow IMPRESSION: Mild gastroesophageal reflux without hiatal hernia. Assessment & Plan Assessment & Plan (1) Elevated liver enzymes: Code(s): R74.8 - Abnormal levels of other serum enzymes Category: Medical (2) Acid reflux: Code(s): K21.9 - Gastro-esophageal reflux disease without esophagitis Category: Medical Qualifiers: Esophagitis presence: esophagitis presence not specified Qualified Code(s): K21.9 - Gastro-esophageal reflux disease without esophagitis (3) History of hepatitis: Code(s): Z86.19 - Personal history of other infectious and parasitic diseases Category: Medical (4) Elevated transaminase measurement: Code(s): R74.01 - Elevation of levels of liver transaminase levels (5) Steatosis of liver: Code(s): K76.0 - Fatty (change of) liver, not elsewhere classified (6) Postprandial epigastric pain: Code(s): R10.13 - Epigastric pain (7) Right upper quadrant abdominal pain: Code(s): R10.11 - Right upper quadrant pain Plan Patient will continue PPI and sucralfate he avoid dietary triggers only had not been. Staying upright for minimum 3 hours after meals discussed with patient. Patient was encouraged to get his labs done. Will send him for ultrasound with liver elastography. Patient will follow-up in 6 months. He was encouraged to call us if he will have any GI concerning symptoms. Patient is agreeable to this plan and verbalizes understanding of instructions. He was given the opportunity to ask questions and all questions answered. Thank you for allowing me to participate in his care Orders: Orders Liver Fibrosis Pnl Today K76.0 - Fatty (change of) liver, not elsewhere classified Liver Panel Today R74.01 - Elevation of levels of liver transaminase levels US abdomen chand w elastography Today K76.0 - Fatty (change of) liver, not elsewhere classified Platelet Count Today R74.01 - Elevation of levels of liver transaminase levels Medications: New sucralfate 10 mL PO BEDTIME 400 mL 5RF K21.9 - Gastro-esophageal reflux disease without esophagitis Coding Level of Care Code Est Pt Level 4 (64013) Complex visit Add On G2211 Diagnoses Elevated liver enzymes R74.8 Gastroesophageal reflux disease, unspecified whether esophagitis present K21.9 Esophagitis presence: esophagitis presence not specified History of hepatitis Z86.19 Elevated transaminase measurement R74.01 Steatosis of liver K76.0 Postprandial epigastric pain R10.13 Right upper quadrant abdominal pain R10.11 Time Spent (min) 35 Comment 25 minutes spent with patient and additional 10 minutes spent reviewing his record
[2025-09-26 15:48] VITALS: BP 138/68; PULSE 102; O2SAT 98; BMI 34.1
== END 2025-09-26 16:16 | disposition home or self-care (01) ==
PROVIDERS: PCP Family Medicine; Visit Provider Nurse Practitioner Family
DX: R74.8 Abnormal levels of other serum enzymes (principal); K21.9 Gastro-esophageal reflux disease without esophagitis; Z86.19 Personal history of other infectious and parasitic diseases; R74.01 Elevation of levels of liver transaminase levels; K76.0 Fatty (change of) liver, not elsewhere classified; R10.13 Epigastric pain; R10.11 Right upper quadrant pain
CPT/HCPCS: 99214

== ENCOUNTER → 2025-09-26 15:40 | Outpatient (BNVA) | payer OTHER, SELFPAY | PROVIDERS: PCP Family Medicine; Visit Provider Nurse Practitioner Family | DX: K21.9 Gastro-esophageal reflux disease without esophagitis (principal); K76.0 Fatty (change of) liver, not elsewhere classified; R74.01 Elevation of levels of liver transaminase levels; R10.13 Epigastric pain; R10.11 Right upper quadrant pain; R74.8 Abnormal levels of other serum enzymes | CPT/HCPCS: 99212 ==

== ENCOUNTER 2025-10-08 07:19 | Day surgery (SDC) | payer OTHER, SELFPAY ==
--- NOTE | 2025-09-24 13:08 | HO.ANESPROP2 ---
Documented by User: Leandra Garnica NP 09/24/25 13:35 HPI - Anesthesia Eval Consult details Narrative: 40 yr old female for Repair Hernia Ventral Reducible with mesh scheduled 10/08/25, seen in [facility] 09/24/25 Moderate GERD: on daily PPI, symptoms reasonably well controlled Saw [facility] [place] cardiology 02/2024 for abnormal EKG, tachycardia, waking up with burning chest; work up essentially benign, including holter, echo, EST *see below [facility] Active Problems Active Problems: All Active Problems Ventral hernia (Acute) Folliculitis (Acute) Change in hearing (Acute) Periumbilic swelling, mass or lump (Acute) Constipation (Acute) Eye irritation (Acute) Adult general medical examination (Acute) Screening for tuberculosis (Acute) Hand tendonitis (Acute) Foot pain (Acute) Chest discomfort (Acute) Locking finger joint (Acute) Low vitamin D level (Acute) Elevated fasting blood sugar (Acute) Sleep apnea (Acute) Elevated liver enzymes (Acute) Hyperlipidemia (Acute) Left ventricular hypertrophy (Acute) Acid reflux (Acute) Tachycardia (Acute) Laboratory exam ordered as part of routine general medical examination (Acute) Rash (Acute) History of hepatitis (Acute) 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 (Acute) Hypertension (Acute) Past Medical History Medical History Back pain GERD (gastroesophageal reflux disease) History of hepatitis 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 Mass in rectum (~2017) Hemorrhoids with complication (~2020) Hypertension Liver problem Family History Family History Mother Asthma Family history of problems with anesthesia: No Surgical History Surgical History H/O colonoscopy History of hemorrhoidectomy History of Problems with Anesthesia: No Social History Social History Household Members: Family Housing: House Are you a primary care clinician to a significant other at home: No Do you presently have visiting nurse or other home services: No Alcohol intake: current Alcohol intake frequency: does not drink Comment: on occasion Patient Tobacco Use Status: Former Tobacco user e-Cigarette/Vaping Use: Never Used Use of substances other than those prescribed or required for medical reasons: No Have you been hit, kicked, punched, or otherwise hurt by someone within the past year? 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 Cognitive needs: No Hearing needs: No Vision needs: No Meds Allergies Allergy/AdvReac Type Severity Reaction Status Date / Time No Known Allergies Allergy Verified 10/08/25 07:52 Home Medications ?Medication ?Instructions ?Recorded ?Confirmed ?Last Taken ?Type magnesium oxide 250 mg PO DAILY 09/24/25 10/08/25 Unknown History omega 5-arb-men-fish oil 60 mg-90 1 cap PO DAILY 09/24/25 10/08/25 Unknown History mg-500 mg capsule (Fish Oil) Exam Pertinent Lab Results Pertinent Lab Results: Laboratory Tests 01/22/25 10:44 WBC 9.0 RBC 4.57 L Hgb 14.9 Hct 44.4 Plt Count 195 Sodium 138 Potassium 4.1 Chloride 103 Carbon Dioxide 29 BUN 13 Creatinine 0.79 Narrative Narrative: EKG 02/2024 NSR, RBBB, rate 77 ECHO 03/2024 Conclusions: - The left ventricular systolic function is normal. The calculated ejection fraction is 54% by biplane method. - No obvious valvular pathology seen on this study. Exercise stress test 03/2024 Protocol: DORITA Max HR: 171 BPM 93% of Pred: 183 BPM Max BP: 154/084 mmHG Max Work Load: 13.4 METS Exercise stress test exercise 11 min 5 sec of Dorita protocol achieving 93% MPHR, with 3-4/10 chest pain, mild SOB, without arrhythmias, with normotensive response to exericse, without EKG changes. Chest pain resolved with rest. Test reviewed with Dr. Pickard. Airway TM Dist: >3cm Neck ROM: Full Loose/Missing/Broken Teeth: No Assessment and Plan Final Anesthetic Review Family History of Problems with Anesthesia: No History of Problems with Anesthesia: No Documented by User: Ravin Aparicio MD 10/08/25 08:53 [facility] Past Medical History Medical History Back pain GERD (gastroesophageal reflux disease) History of hepatitis 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 Mass in rectum (~2017) Hemorrhoids with complication (~2020) Hypertension Liver problem Family History Family History Mother Asthma Surgical History Surgical History H/O colonoscopy History of hemorrhoidectomy Social History Social History Household Members: Family Housing: House Are you a primary care clinician to a significant other at home: No Do you presently have visiting nurse or other home services: No Alcohol intake: current Alcohol intake frequency: does not drink Comment: on occasion Patient Tobacco Use Status: Former Tobacco user e-Cigarette/Vaping Use: Never Used Use of substances other than those prescribed or required for medical reasons: No Have you been hit, kicked, punched, or otherwise hurt by someone within the past year? 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 Cognitive needs: No Hearing needs: No Vision needs: No Meds Allergies Allergy/AdvReac Type Severity Reaction Status Date / Time No Known Allergies Allergy Verified 10/08/25 07:52 Home Medications ?Medication ?Instructions ?Recorded ?Confirmed ?Last Taken ?Type magnesium oxide 250 mg PO DAILY 09/24/25 10/08/25 Unknown History omega 8-bqx-jaz-fish oil 60 mg-90 1 cap PO DAILY 09/24/25 10/08/25 Unknown History mg-500 mg capsule (Fish Oil) Exam Exam Date and Time: 10/08/25 Airway Mallampati Class: II Heart: rrr Lungs: ctab vesicular Assessment and Plan Assessment Anesthesia Assessment: Anesthesia Plan Discussed and Chart Reviewed Final Anesthetic Review NPO: Yes ASA Class: III Final Preanesthetic Review: No Changes in Pt Med Stat, Meds/Allgs Chart Reviewed, Consent Obtained/Reviewed and Anes Risks/Benef Reviewed Patient Risk: Low Procedure Risk: Low Anesthetic Plan Anesthetic Plan: GA Disposition: Standard PACU
[2025-09-24 13:13] VITALS: BP 147/95; PULSE 104; RESP 18; O2SAT 100; BMI 29.2
[2025-10-08] VITALS (7 sets, daily range): BP systolic 110–144; BP diastolic 66–100; PULSE 73–98; RESP 10–16; TEMP 36.3–36.6; O2SAT 94–98; BMI 30.5
[2025-10-08] MEDS: Lactated Ringers 1,000 ML 100 ML IVCONT (08:15)
--- NOTE | 2025-10-08 08:37 | MHC.SHP ---
Pre-Procedural Eval Section A - 24 Hr Update-Section A only Date of Service: 10/08/25 The patient is an INPATIENT: No Changes since office visit: Yes Patient answered all questions; No Cold of Flu in the past 2 weeks, No New Medical Problems and No Changes in Medication The patient has been examined within 24 hours of the surgical procedure. The History & Physical has been completed within 30 days and I have reviewed it.: No Section B - Complete if H&P > 30 days Chief Complaint: Ventral hernia without obstruction or gangrene Details of Present Illness: no change in symptoms Relevant Family History (Specify if Yes): No Relevant Social History: None Present Medications: see Short Stay Collaborative assessment Medical History: No relevant PMH History of Previous Operations: No relevant previous surgery Allergies: Allergies Allergy/AdvReac Type Severity Reaction Status Date / Time No Known Allergies Allergy Verified 10/08/25 07:52 Review of Systems Sugical H&P ROS: Negative: Constitution, Cardiovascular, Respiratory, Neurological, Psychiatric, Hem-Onc, Allergic/Immunologic, Gastrointestinal, Genitourinary, Musculoskeletal and Integumentary Exam Surgical H&P Exam: Normal: HEENT, Normal: Heart, Normal: Lungs, Normal: Extremities, Normal: Abdomen (ventral hernia) and Normal: Skin Plan Diagnosis/Plan: Unchanged I have reviewed the history and physical and performed a pertinent physical examination on my patient. No changes have occurred unless specified. Time Spent With Patient Time: Total time managing care of this patient today ____ minutes.
--- NOTE | 2025-10-08 09:52 | P.OP_ITS ---
Operative Note Operative Note Date of Service: 10/08/25 Narrative: Preoperative diagnosis: Ventral hernia, reducible Postoperative diagnosis: Same Procedure: Repair of ventral hernia with mesh Surgeon: Cipriano Andres MD Supervisor [employer]: Melony Metzger PA-C Anesthesia: General endotracheal Indications for procedure: 40-year-old male patient presenting with a painful lump located just above the umbilicus which increases in size with Valsalva maneuvers but reduces with light pressure. Operative findings: 2 cm fascial defect located approximately 2 cm above the umbilicus Specimen: None Estimated blood loss: 2 mL Complications: None Procedure details: Patient was brought to the OR and placed in a supine position. After administering general anesthesia the patient's abdomen was prepped with ChloraPrep and draped in a sterile fashion. A surgical time-out was called the consent confirmed. Patient received preoperative antibiotics and Venodyne boots were in place. Local anesthesia consisting of 0.5% Sensorcaine was infiltrated in the midline just above the umbilicus. Incision was then made measuring approximately 4 cm in length. This was carried out through subcutaneous tissue and up to the anterior rectus sheath. A ventral hernia was noted just above the umbilicus measuring approximately 2 cm in diameter. Hernia sac was dissected down to the fascial defect and the contents reduced into the abdominal cavity. A preperitoneal space was then dissected using combination of sharp dissection and electrocautery. Hemostasis was assured all times using electrocautery. A 4.3 cm round Ventralex mesh was then obtained. This was deployed within the preperitoneal space and secured in 4 quadrants using a 1 Tycron suture. Approximately 5 mL of Zenrelef was then instilled below the fascia and the fascia closed over the mesh using [id number] 1 Tycron sutures. Wounds were then irrigated with saline solution and suctioned dry. Subcutaneous tissue was then reapproximated using interrupted 3-0 Polysorb sutures. Dermis was reapproximated using interrupted 3-0 Polysorb sutures. Skin was then closed using a running subcuticular 4-0 Polysorb suture. Steri- Strips, 4 x 4 gauze and Tegaderm were then applied. The patient tolerated the procedure well. Sponge, instrument, and needle counts reported as correct. The patient was transferred to PACU in stable condition.
== END 2025-10-08 11:02 | disposition home or self-care (01) ==
PROVIDERS: PCP Family Medicine; Visit Provider Surgery
PROC: (CPT 49591; principal; 2025-10-08 09:30)
DX: K43.9 Ventral hernia without obstruction or gangrene (principal); I10 Essential (primary) hypertension; K76.9 Liver disease, unspecified; M19.072 Primary osteoarthritis, left ankle and foot; Z86.19 Personal history of other infectious and parasitic diseases; Z79.1 Long term (current) use of non-steroidal anti-inflammatories (NSAID); Z79.899 Other long term (current) drug therapy; Z98.890 Other specified postprocedural states; Z87.891 Personal history of nicotine dependence
CPT/HCPCS: 49591; C1781; J0131; J0668; J0690; J1100; J1171; J1885; J2003; J2250; J2405; J2704; J3010

== ENCOUNTER → 2025-10-08 07:19 | Outpatient (BNV) | payer OTHER, SELFPAY | PROVIDERS: PCP Family Medicine; Visit Provider Surgery | DX: K43.9 Ventral hernia without obstruction or gangrene (principal) | CPT/HCPCS: 49591 ==

== ENCOUNTER 2025-10-12 12:21 | Emergency (ER) | payer OTHER, SELFPAY ==
--- NOTE | ~2025-10-12 | CT_ITS ---
CLINICAL HISTORY: post op periumbilical hernia repair post op pain CT Abdomen and Pelvis W Contrast COMPARISON: US/SR - US ABDOMEN LIMITED - 03/13/25 10:52 EDT FINDINGS: Small nonenhancing gas and fluid collection in the supraumbilical anterior abdominal wall subcutaneous fat extending into the anterior abdominal mesentery consistent with recent surgery. No visible soft tissue abscess. No contrast blush. Normal liver. Splenomegaly. Normal kidneys. Normal adrenal glands. Normal pancreas. Cholelithiasis. No CT evidence of acute cholecystitis. No biliary dilation. No evidence of bowel obstruction or colitis. The visible appendix appears normal. Unremarkable bladder. Trace ascites. Mild fat stranding in the central mesentery extending into the right lower quadrant. Multiple prominent mesenteric lymph nodes. No acute fracture. Mild degenerative changes in the spine. No abdominal aortic aneurysm. IMPRESSION: Findings consistent with recent anterior abdominal wall surgery. Mesenteric fat stranding, which could be due to an infectious or inflammatory process. Trace ascites. Reactive mesenteric lymph nodes. Nonemergent/incidental findings above. This document has been electronically signed by: Segundo Moss MD on 10/12/2025 16:27:30
--- NOTE | 2025-10-12 12:27 | ED_ITS ---
HPI - Abdominal Pain General Chief Complaint: General Medical Stated Complaint: hernia repair surgery, still in pain Time Seen by Provider: 10/12/25 14:34 Source: patient Mode of arrival: ambulatory Limitations: language barrier History of Present Illness ED Provider: HPI narrative: 40-year-old male 4 days postop inguinal hernia repair with Dr. Andres presenting with reports of worsening pain, constipation and decreased passage of gas, initially on oxycodone then taking ibuprofen, no fevers or chills reported. No drainage. Related Data Home Medications ?Medication ?Instructions ?Recorded ?Confirmed magnesium oxide 250 mg PO DAILY 09/24/2501/28 omega 5-ibu-cdp-fish oil 60 mg-90 1 cap PO DAILY 09/2410/08/25 mg-500 mg capsule (Fish Oil) Previous Rx's ?Medication ?Instructions ?Recorded ibuprofen 400 mg tablet 400 mg PO Q8H PRN pain 30 da ys #90 04/24/24 tabs losartan 25 mg tablet 25 mg PO DAILY 30 days #30 t abs 05/22/25 pantoprazole 40 mg tablet,delayed 40 mg PO QAM #90 tab s 06/23/25 release metoprolol succinate 50 mg 50 mg PO BID 30 days #60 ta bs 07/09/25 tablet,extended release 24 hr sucralfate 100 mg/mL oral 10 ml PO BEDTIME #400 mL suspension oxycodone 5 mg tablet 5 mg PO Q6H PRN pain (scale score 10/08/25 7-10) #15 tabs Allergies Allergy/AdvReac Type Severity Reaction Status Date / Time No Known Allergies Allergy Verified 10/12/25 12:35 Review of Systems Constitutional: Reports as per HPI [facility] Past Medical History Medical History Back pain GERD (gastroesophageal reflux disease) History of hepatitis 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 Mass in rectum (~2017) Hemorrhoids with complication (~2020) Hypertension Liver problem Surgical History H/O colonoscopy History of hemorrhoidectomy Family History Family History Mother Asthma Social History Social History Household Members: Family Housing: House Are you a primary child care coordinator to a significant other at home: No Do you presently have visiting nurse or other home services: No Alcohol intake: current Alcohol intake frequency: does not drink Comment: correct count Patient Tobacco Use Status: Former Tobacco user e-Cigarette/Vaping Use: Never Used Advance Directives: No Advance Directives Information Provided: No Do you have a plan to hurt others: No Plan service: No Current occupational status: employed 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 Cognitive needs: No Hearing needs: No Vision needs: No Physical Exam ED Exam Exam: General: looks age appropriate PERRLA, EOMI, MMM, No scleral icterus Neck: Supple, no LAD CV: RRR, no obvious murmurs appreciated Resp: ?No wheezing rales rhonchi no stridor moving air well Abd: ?Bowel sounds are present, very tender on exam, removed postop dressing Steri-Strips and place clean and dry MSK: FROM, strength 5/5 all extremities Skin: Warm, dry, intact, no jaundice, no erythema no drainage Neuro: ?Alert and oriented x3, moving upper and lower extremities symmetrically, no obvious facial asymmetry noted, cranial nerves 2-12 intact Vital Signs: Vital Signs - 24 hr 10/12/25 12:31 10/12/25 17:10 Temperature 98 F 98.2 F Pulse Rate 119 H 83 Respiratory Rate 18 16 Blood Pressure 160/105 H 122/81 Pulse Oximetry 98 97 Oxygen Delivery Method Room Air Room Air BMI result Body Mass Index 27.9 Course Course Course Narrative: This is a Rapid Medical Exam performed in triage by Leandra Olmos PA-C. Full HPI, ROS and PE to be performed by primary ED provider. 40-year-old Prydeinig-speaking male with a past medical history ventral hernia repair with mesh by Dr. Andres on 10/08/2025 presenting to the ED c/o worsening abdominal pain. PE: HTNsive, abdomen soft - dressing over umbilicus - diffusely ttp, no rebound or guarding Plan: labs, UA Medical Decision Making Medical Decision Making MDM Narrative: 3:03 PM 10/12/2025 (Dr. Kraig Gibbs): presenting with elevated leukocytosis, elevated lactic, tachycardic or meeting septic criteria we will obtain blood cultures, repeat lactic, and load with IV antibiotics, we will provide IV fluids as well, I will also send a consult to Dr. Ty from surgery for surgical evaluation we will obtain imaging to evaluate for postop complications. He is not having respiratory symptoms or symptoms of the dysuria or diarrhea or any rashes in the postsurgical site looks clean. he has chronically elevated LFTs 4:00 PM 10/12/2025 (Dr. Kraig Gibbs): care signed out to Dr. Oliver pending CT results and surgical evaluation Patient's CT scan of the abdomen pelvis showed postsurgical changes. Lactate initially was 3 but after IV fluid it became normal at 1.2. Patient's case discussed with surgery Dr. Ty. Once patient to be discharged home close follow-up on an outpatient basis. I discussed this with patient through a [place] freelance interpreter/translator. Patient feels comfortable with plan. Repeat vital signs showed a heart rate of 89. Patient is now hungry. I repeat patient's exam which was grossly soft nontender. The wound appears intact. There is no gross discharge noted. Had a joint discussion with patient's family they feel comfortable. Patient is to take clear liquids for the next 24 hours. Close follow-up with Dr. Andres in a.m.. Differential Diagnosis Differential Diagnoses: The differential diagnosis associated with the presentation includes ( Pneumonia, UTI, PE, postop infection, intra-abdominal abscess, SBO) Obstruction abscess perforation Admission/Observation Consideration of admission/observation: Escalation of care including admission/observation considered Consult Healthcare Provider Management of the patient was discussed with: Group Managing Director ( Dr. Ty surgery) Lab Data MDM Lab Attestation statement: I reviewed the patient's lab results. ( LFTs chronically elevated) 10/12/25 12:50 10/12/25 12:50 Labs: Lab Results 10/12/25 10/12/25 10/12/25 Range/Units 12:49 12:50 15:20 WBC 11.1 H (4.8-10.8) X10*3/uL RBC 4.22 L (4.60-5.80) X10*6/uL Hgb 14.8 (14.0-18.0) g/dl Hct 43.6 (42.0-52.0) % MCV 103.3 H (80.0-98.0) fL MCH 35.1 H (27.0-33.0) pg MCHC 33.9 (31.0-36.0) g/dl RDW 14.3 (11.0-16.0) % Plt Count 219 (160-400) X10*3/uL MPV 10.8 (9.4-12.4) fL Immature Gran % (Auto) 0.3 (0.0-0.4) % Neut % (Auto) 60.2 (45-73) % Lymph % (Auto) 26.3 (20-40) % [place] % (Auto) 11.7 H (2-11) % Eos % (Auto) 1.1 (0-4) % Baso % (Auto) 0.4 (0-2) % Lymph # (Auto) 2.9 (1.2-4.9) X10*3/uL [place] # (Auto) 1.3 H (0.1-1.2) X10*3/uL Eos # (Auto) 0.1 (0.0-0.4) X10*3/uL Baso # (Auto) 0.1 (0.0-0.2) X10*3/uL Abs Immat Gran (auto) 0.03 (0.00-0.03) X10*3/uL Absolute Neuts (auto) 6.7 (2.0-8.3) x10*3/uL Absolute Nucleated RBC 0.000 (0.0-0.012) X10*3/uL Nucleated RBC % (auto) 0.0 (0.0-0.2) /100WBC Sodium 137 (135-145) mmol/L Potassium 3.9 (3.3-5.1) mmol/L Chloride 102 (96-108) mmol/L Carbon Dioxide 24 (22-29) mmol/L Anion Gap 15 (12-20) BUN 7 L (9-16) mg/dL Creatinine 0.68 (0.5-1.4) mg/dL Estim Creat Clear Calc 166.4 Estimated GFR > 60 Random Glucose 120 H (60-115) mg/dL Lactic Acid 3.0 H* (0.5-2.0) mmol/L Lactic Acid F/U @ 2Hr 1.2 (0.5-2.0) mmol/L Calcium 10.0 (8.4-10.2) mg/dL Magnesium 2.0 (1.6-2.6) mg/dL Total Bilirubin 0.9 (0.0-1.0) mg/dL Direct Bilirubin 0.4 (0.0-0.5) mg/dL AST 32 (5-37) U/L ALT 62 H (0-40) U/L Alkaline Phosphatase 163 H (39-117) U/L Total Protein 8.7 H (6.5-8.0) g/dL Albumin 5.1 H (3.5-5.0) g/dL Lipase 24 (8-78) U/L Urine Color Dark Yellow Urine Appearance Clear Urine pH 5.0 (5.0-9.0) Ur Specific [place] 1.025 (1.005-1.025) Urine Protein 100 (2+) H (Neg-Trace) mg/dL Urine Glucose (UA) Negative (Negative) mg/dL Urine Ketones Negative (Negative) mg/dL Urine Blood Negative (Negative) Urine Nitrite Negative (Negative) Ur Leukocyte Esterase Negative (Negative) Urine RBC 0-2 (0-2) /HPF Urine WBC 0-5 (0-5) /HPF Ur Squamous Epith Cells 0-2 (0-2) /HPF Urine Bacteria None Seen (None Seen) Hyaline Casts 0-2 (0-2) /LPF Independent Interpretation I performed an independent interpretation of an: CT Scan ( CT scan showed no obvious obstruction) Radiology Impression Discussion of test interpretation with radiology: I have reviewed the radiologist's reading. External Record Review External record reviewed: Inpatient record Chronic Conditions recent surgery for hernia Medications Administered Discontinued Medications Generic Name Dose Route Start Last Admin Trade Name Freq PRN Reason Stop Dose Admin Sodium Chloride 1,000 mls @ 999 mls/hr 10/12/25 13:30 10/12/25 14:04 Ns IV 10/12/25 14:30 999 mls/hr .Q1H1M ANGELITO Administration Ceftriaxone Sodium 1 gm/ 50 mls @ 100 mls/hr 10/12/25 14:46 10/12/25 15:35 Sodium Chloride IV 10/12/25 15:15 Infused ONCE ONE Infusion Iohexol 100 ml 10/12/25 15:32 10/12/25 15:32 Iohexol 350 Mg/Ml 100 Ml Infus..Btl IV 10/12/25 15:33 85 ml ONCE ONE Administration Ketorolac Tromethamine 15 mg 10/12/25 14:46 10/12/25 15:02 Ketorolac Tromethamine 15 Mg/Ml Vial IVPUSH 10/12/25 14:47 15 mg ONCE ONE Administration Morphine Sulfate 4 mg 10/12/25 14:46 10/12/25 15:03 Morphine Sulfate 4 Mg/Ml Cartridge IVPUSH 10/12/25 14:47 4 mg ONCE ONE Administration Protocol Ondansetron HCl 4 mg 10/12/25 14:46 10/12/25 15:03 Ondansetron Hcl 4 Mg/2 Ml Vial IVPUSH 10/12/25 14:47 4 mg ONCE ONE Administration Critical Care Time Critical Care Time Critical Care Time: Yes Total Critical Care Time: 35 Attestation: Time is exclusive of separately billable procedures. Time includes: direct patient care, patient reassessment, coordination of patient care, interpretation of data (laboratory data, pulse oximetry, arterial blood gases and chest xrays), review of patient's medical records, medical consultation and documentation of patient care. Procedures excluded from critical care time: central intravenous line placement and electrocardiography. Discharge Plan Discharge Clinical Impression: Abdominal pain Patient Disposition: Home, Self-Care Instructions: Abdominal Pain (ED) Additional Instructions: clear liquids tonight. Closely follow-up with surgery tomorrow morning. Prescriptions: No Action losartan 25 mg tablet 25 mg PO DAILY 30 Days Qty: 30 3RF pantoprazole 40 mg tablet,delayed release (DR/EC) 40 mg PO QAM Qty: 90 1RF metoprolol succinate 50 mg tablet extended release 24 hr 50 mg PO BID 30 Days Qty: 60 2RF magnesium oxide 250 mg magnesium Tablet 250 mg PO DAILY omega 1-dec-rnr-fish oil [Fish Oil] 60-90-500 mg Capsule 1 cap PO DAILY oxycodone 5 mg tablet 5 mg PO Q6H PRN (Reason: pain (scale score 7-10)) Qty: 15 0RF Rx Instructions: Partial Fill upon patient request. ibuprofen 400 mg tablet 400 mg PO Q8H PRN (Reason: pain) 30 Days Qty: 90 3RF sucralfate 100 mg/mL suspension 10 ml PO BEDTIME Qty: 400 5RF Referrals: Cipriano Andres MD [Physician, General Surgery] - 10/13/25 Print Language: Prydeinig
[2025-10-12 12:31] VITALS: BP 160/105; PULSE 119; RESP 18; TEMP 36.6; O2SAT 98; BMI 27.9
[2025-10-12 12:57] LABS: MANUAL DIFF FLAG NO
[2025-10-12 13:08] LABS: Hematocrit 43.6 % (42.0-52.0); Hemoglobin 14.8 g/dl (14.0-18.0); Imm Gran Abs Auto 0.03 X10*3/uL (0.00-0.03); Imm Gran Pct Auto 0.3 % (0.0-0.4); Lymphocytes Absolute Auto 2.9 X10*3/uL (1.2-4.9); Mean Corpuscular HGB Conc 33.9 g/dl (31.0-36.0); Mean Corpuscular Hemoglobin 35.1 pg (27.0-33.0); Mean Corpuscular Volume 103.3 fL (80.0-98.0); NRBC Abs Auto 0.000 X10*3/uL (0.0-0.012); NRBC Pct Auto 0.0 /100WBC (0.0-0.2); Platelet Count 219 X10*3/uL (160-400); Red Blood Count 4.22 X10*6/uL (4.60-5.80); White Blood Count 11.1 X10*3/uL (4.8-10.8)
[2025-10-12 13:13] LABS: Appearance Urine Clear; Glucose Urine UA Negative (Negative); PH 5.0 (5.0-9.0); Specific Gravity - Urine 1.025 (1.005-1.025); UMIC TRIGGER UACC YES
[2025-10-12 13:15] LABS: Alanine Aminotransferase 62 U/L (0-40); Albumin Level 5.1 g/dL (3.5-5.0); Alkaline Phosphatase 163 U/L (39-117); Anion Gap 15 (12-20); Aspartate Amino Transferase 32 U/L (5-37); Blood Urea Nitrogen 7 mg/dL (9-16); Calcium 10.0 mg/dL (8.4-10.2); Carbon Dioxide 24 mmol/L (22-29); Chloride 102 mmol/L (96-108); Creatinine Clr Calc Pharmacy 166.4; Estimated Glomerular Filt Rate > 60; Lipase 24 U/L (8-78); Magnesium 2.0 mg/dL (1.6-2.6); Potassium 3.9 mmol/L (3.3-5.1); Sodium 137 mmol/L (135-145); Total Protein 8.7 g/dL (6.5-8.0)
[2025-10-12 14:54] LABS: Reflex Lactate? Lactic Acid Added
[2025-10-12] MEDS: iohexoL 350 MG/ML 100 ML INFUS..BTL IV (15:32)
[2025-10-12 15:39] LABS: ~Lactic Acid-LAB USE ONLY 1.2 mmol/L (0.5-2.0)
[2025-10-12 17:10] VITALS: BP 122/81; PULSE 83; RESP 16; TEMP 36.8; O2SAT 97
[2025-10-12 17:43] VITALS: BP 122/81; PULSE 83; RESP 16; TEMP 36.8; O2SAT 97
== END 2025-10-12 18:23 | disposition home or self-care (01) ==
PROVIDERS: Physician Assistant; Emergency Provider Emergency Medicine Emergency Medical Services; PCP Family Medicine
DX: R10.9 Unspecified abdominal pain (principal); Z98.890 Other specified postprocedural states; K59.00 Constipation, unspecified; I10 Essential (primary) hypertension; Z87.891 Personal history of nicotine dependence
CPT/HCPCS: 36415; 74177; 80048; 80076; 81001; 83605; 83690; 83735; 85025; 87040; 96361; 96365; 96375; 99284; J0696; J1885; J2270; J2405; Q9967

== ENCOUNTER → 2025-10-12 14:47 | Outpatient (BNV) | payer OTHER, SELFPAY | PROVIDERS: Emergency Provider Emergency Medicine Emergency Medical Services; PCP Family Medicine; Visit Provider Radiology Diagnostic Radiology | DX: G89.18 Other acute postprocedural pain (principal); K65.4 Sclerosing mesenteritis; R59.0 Localized enlarged lymph nodes | CPT/HCPCS: 74177 ==

== ENCOUNTER 2025-10-13 14:10 | Outpatient (AMB) | payer OTHER, SELFPAY ==
--- NOTE | 2025-10-13 14:13 | A.OFFVIS_ITS ---
Vital Signs 3 10/13/25 14:20 Height 6 ft 1 in Weight 209 lb 7.026 oz BMI 27.6 Respiration 16 Intake Visit Reasons: S/P ventral hernia w/mesh Intake Note: Patient is seen in office for post op assessment post ventral hernia. 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 He reports developing increased pain the evening of surgery which gradually increased over the next 3 days to the point where he visited the emergency department for further evaluation. A CT abdomen and pelvis was performed at that time which revealed postoperative changes but no hematoma or infection. He was given a dose of antibiotics and IV pain medication and subsequently discharged home. He currently is off any pain medication and does have some soreness especially when standing up straight. He denies any bleeding or discharge from the incision. He was constipated but has started moving his bowels today. 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 Mass in rectum (~2017) Hemorrhoids with complication (~2020) Hypertension Liver problem Surgical History History of ventral hernia repair (10/08/25) H/O colonoscopy History of hemorrhoidectomy Family History Mother Asthma Social History Household Members: Family Housing: House Are you a primary career center advisor to a significant other at home: No Do you presently have visiting nurse or other home services: No 75 years or older and lives alone: No Alcohol intake: current Alcohol intake frequency: does not drink Comment: correct count Patient Tobacco Use Status: Former Tobacco user e-Cigarette/Vaping Use: Never Used service: No Current occupational status: employed 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 There was no evidence of hernia recurrence or infection. Abdomen image: 2 1. Incision upper abdomen Neuro General: patient oriented x3 Extrem General: Yes no clubbing, cyanosis or edema Assessment & Plan Assessment & Plan (1) Ventral hernia: Code(s): K43.9 - Ventral hernia without obstruction or gangrene Category: Medical Qualifiers: Obstruction and gangrene presence: without obstruction or gangrene Q ualified Code(s): K43.9 - Ventral hernia without obstruction or gangrene Plan 40-year-old male patient status post repair of a ventral hernia with mesh. His wounds are clean and intact without evidence of hernia recurrence or infection. His pain level appears appropriate for this point in his postoperative course. I recommended he continue to avoid lifting greater than 10 lb. He should follow up in 1 month for wound examination. Medications: New 2 docusate sodium (Colace) 100 mg PO DAILY 30 caps 0RF Coding Level of Care Code Global (56243) Diagnoses Ventral hernia without obstruction or gangrene K43.9 Obstruction and gangrene presence: without obstruction or gangrene
[2025-10-13 14:20] VITALS: RESP 16; BMI 27.6
== END 2025-10-13 14:37 | disposition home or self-care (01) ==
LOC: HO.HGS 14:11
PROVIDERS: PCP Family Medicine; Visit Provider Surgery
DX: K43.9 Ventral hernia without obstruction or gangrene (principal)
CPT/HCPCS: 99213

== ENCOUNTER → 2025-10-13 14:10 | Outpatient (BNVA) | payer OTHER, SELFPAY | PROVIDERS: PCP Family Medicine; Visit Provider Surgery | DX: Z48.815 Encounter for surgical aftercare following surgery on the digestive system (principal); Z98.890 Other specified postprocedural states | CPT/HCPCS: 99212 ==

== ENCOUNTER 2025-10-23 15:30 | Outpatient (AMB) | payer OTHER, SELFPAY ==
--- NOTE | 2025-10-23 15:36 | MHC.PC.OV ---
Vital Signs 10/23/25 15:42 Height 6 ft 1 in Weight 221 lb BMI 29.2 BP 121/79 Blood Pressure Location Lt brachial Position Sitting Respiration 13 Pulse 80 Pulse Source Pulse Oximeter Temp 97.7 F Temp Source Temporal Artery Scan Pulse Oximetry (%) 98 Oxygen Delivery Method Room Air Intake Visit Reasons: f/u htn/Elevated blood sugar diabetes/REDO PHQ-9 Intake Note: Follow up htn and review labs. Patient c/o spot on hands skin. Aircraft [employer] Required: Yes Aircraft F[employer]elage Framer Language: Moroccan Aircraft [employer]elage [employer]amer Name: [id number] kelvin Allergies No Known Allergies Allergy (Verified 10/23/25 15:37) Medication List - Last Reconciled 10/23/25 by Denys Arroyo MD docusate sodium (Colace) 100 mg PO DAILY ibuprofen 400 mg PO Q8H PRN 30 days losartan 25 mg PO DAILY 30 days magnesium oxide 250 mg PO DAILY metoprolol succinate ER 50 mg PO BID 30 days omega 4-nch-tdc-fish oil 60-90-500 mg (Fish Oil) 1 cap PO DAILY oxycodone 5 mg PO Q6H PRN pantoprazole 40 mg PO QAM sucralfate 10 mL PO BEDTIME Tobacco use date assessed: 10/23/25 Dental Screening Dental Screen Date: 10/23/25 Did you have a dental visit in the last 12 months?: Yes Did you have a dental problem in the last 6 months where you did not have access to dental care?: No Was dental information given to patient?: Patient has dentist HPI f/u htn/Elevated blood sugar diabetes/REDO PHQ-9 HPI Details 40 y/o male presents to f/u HTN, elevated blood sugars. PHQ-9/IAN-7 negative today. Blood pressure today 121/79, 80p. Hx of elevated fasting glucose. Has complaints of eczema. 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 Mass in rectum (~2017) Hemorrhoids with complication (~2020) Hypertension Liver problem Surgical History History of ventral hernia repair (10/08/25) H/O colonoscopy History of hemorrhoidectomy Family History Mother Asthma Social History Household Members: Family Housing: House Are you a primary field care manager to a significant other at home: No Do you presently have visiting nurse or other home services: No 75 years or older and lives alone: No Alcohol intake: current Alcohol intake frequency: does not drink Comment: correct count Patient Tobacco Use Status: Former Tobacco user e-Cigarette/Vaping Use: Never Used Second Hand Smoke Exposure: No service: No Current occupational status: 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 1. Little interest or pleasure in doing things: not at all 2. Feeling down, depressed, or hopeless: not at all 3. Trouble falling or staying asleep, or sleeping too much: not at all 4. Feeling tired or having little energy: not at all 5. Poor appetite or overeating: not at all 6. Feeling bad about yourself - or that you are a failure or have let yourself or your family down: not at all 7. Trouble concentrating on things, such as reading the newspaper or watching television: not at all 8. Moving or speaking so slowly that other people could have noticed. Or the opposite - being so fidgety or restless that you have been moving around a lot more than usual: not at all 9. Thoughts that you would be better off or of hurting yourself in some way: not at all Total score: 0 Depression Screening Interpretation: Negative Depression Screening Done: Yes 80718 - PHQ-9 Billing: Yes Source: Developed by Drs. Darryn Hernandez, Tammi Mckeon, Pankaj Wallace and colleagues, with an educational ventura from [employer]. Thrive Questionnaire Date Thrive assessed: 10/23/25 I am a: Patient What is your living situation today?: I have a steady place to live Within the past 12 months, did the food you bought not last and you didn't have the money to get more?: Never true Within the past 12 months, did you worry whether your food would run out before you got money to buy more?: Never true Do you have trouble paying for medicines?: No Do you have trouble getting transportation to medical appointments?: No Do you have trouble paying your heating and electricity bill?: No Do you have trouble taking care of your child, family member or friend?: No Do you have trouble with day-to-day activities such as bathing, preparing meals, shopping, managing finances, etc.?: No Are you currently unemployed and looking for a job?: No Are you interested in more education?: Yes Please select the resources that you would like help with: None Currently or been in a relationship where the following occur: No concerns reported THRIVE Score: 0 IAN-7 AMB Questionnaire IAN-7 Date IAN - 7 assessed: 10/23/25 Feeling nervous, anxious, or on edge: 0 = Not at all Not being able to stop or control worryin = Not at all Worrying too much about different things: 0 = Not at all Trouble relaxin = Not at all Being so restless that it is hard to sit still: 0 = Not at all Becoming easily annoyed or irritable: 0 = Not at all Feeling afraid as if something awful might happen: 0 = Not at all Total IAN-7 score (0-4 normal; 5-9 mild; 10-14 moderate; 15-21 severe): 0 Source: Developed by Drs. Darryn Hernandez, Tammi Mckeon, Pankaj Wallcae and colleagues, with an educational ventura from [employer]. IAN-7 Assessment Billing IAN-7 Assessment Tool: IAN-7 Assessment 48697 Review of Systems Const Denies chills, Denies fatigue, Denies fever(s), Denies headache(s) and Denies weakness ENT Denies dizziness and Denies headache(s) Card Denies dyspnea Resp Denies cough, Denies dyspnea, Denies wheezing and Denies other (shortness of breath) Musc Denies numbness and Denies tingling Neuro Denies dizziness, Denies headache(s), Denies numbness, Denies tingling and Denies weakness Psych Denies anxiety and Denies depression Endo Denies fatigue Aller/Immun Denies wheezing Physical exam (Primary Care) Vital Signs: Last Vital Signs Temp 97.7 F 10/23/25 15:42 Pulse 80 10/23/25 15:42 Resp 13 10/23/25 15:42 BP 121/79 10/23/25 15:42 Pulse Ox 98 10/23/25 15:42 Oxygen Delivery Method Room Air 10/23/25 15:42 BMI result Body Mass Index 29.2 Tobacco/Smoking Status: Tobacco use Status Tobacco use date assessed 10/23/25 10/23/25 15:44 Patient Tobacco Use Status Former Tobacco user 10/23/25 15:37 e-Cigarette/Vaping Use Never Used 10/23/25 15:37 PHQ-9: PHQ-9 Score PHQ-9: Total score 0 10/23/25 15:37 Depression Screening Interpretation: Negative Thrive Assessment: Date of Thrive Assessment Date Thrive assessed 10/23/25 10/23/25 15:37 Currently or been in a relationship where the following occur: No concerns reported Const General: well developed; No acute distress Nutritional Appearance: well nourished Orientation/consciousness: patient oriented x3 HENMT Head: Yes normocephalic and Yes atraumatic Eyes General: appearance normal, both eyes and all related structures Pupils: Equal, round and reactive pupils present EOM: EOMs intact bilaterally Resp Effort & Inspection: normal respiratory effort Neuro General: patient oriented x3 and gait normal Cranial nerves: Yes Equal, round and reactive pupils present Psych Affect: normal affect Coding Level of Care Code Est Pt Level 4 (41559) Diagnoses Hypertension I10 Elevated fasting blood sugar R73.01 Sleep apnea G47.30 Eczema L30.9 Elevated liver enzymes R74.8 Additional Codes IAN-7 Assessment Billing - IAN-7 Assessment Tool: IAN-7 Assessment 02090 ([id number]) PHQ-9 - 27034 - PHQ-9 Billing: Yes ([id number]) Assessment & Plan Assessment & Plan (1) Hypertension: Code(s): I10 - Essential (primary) hypertension Category: Medical Plan: Blood pressure is controlled in the office today. However patient notes that blood pressures are sometimes rather high at home Continue metoprolol and losartan Will follow in 3 months (2) Elevated fasting blood sugar: Code(s): R73.01 - Impaired fasting glucose Category: Medical Plan: Fasting blood sugars are still elevated Has had A1c test in the past which have been within normal range Will recheck A1c with next blood draw (3) Sleep apnea: Code(s): G47.30 - Sleep apnea, unspecified Category: Medical Plan: Patient has had ongoing symptoms of sleep apnea. Had made a referral back in 2022 but patient says he was never evaluated New referral made to sleep medicine (4) Eczema: Code(s): L30.9 - Dermatitis, unspecified Category: Medical Plan: Ongoing rash Can use a steroid cream in morning and evening until improved Use a moisturizing cream throughout your day Hydrate well (5) Elevated liver enzymes: Code(s): R74.8 - Abnormal levels of other serum enzymes Category: Medical Plan: Ongoing elevated liver enzymes Will recheck these again in a few months Hydrate well Avoid alcohol and Tylenol Orders: Orders [facility]. Panel Fast Today Z00.00 - Encounter for general adult medical examination without abnormal findings Lipid Panel Today R74.8 - Abnormal levels of other serum enzymes, Z00.00 - Encounter for general adult medical examination without abnormal findings Hemoglobin A1c Today R73.01 - Impaired fasting glucose, R74.8 - Abnormal levels of other serum enzymes Referrals Sleep Medicine Referral G47.30 - Sleep apnea, unspecified Medications: Refilled clotrimazole-betamethasone 1-0.05 % 1 appl topical BID 45 grams 0RF 2 weeks losartan 25 mg PO DAILY 30 tabs 3RF 30 days
[2025-10-23 15:42] VITALS: BP 121/79; PULSE 80; RESP 13; TEMP 36.5; O2SAT 98; BMI 29.2
== END 2025-10-23 16:46 | disposition home or self-care (01) ==
LOC: HO.HMCFM 15:31
PROVIDERS: PCP Family Medicine; Visit Provider Family Medicine
DX: I10 Essential (primary) hypertension (principal); R73.01 Impaired fasting glucose; G47.30 Sleep apnea, unspecified; L30.9 Dermatitis, unspecified; R74.8 Abnormal levels of other serum enzymes

== ENCOUNTER → 2025-10-23 15:30 | Outpatient (BNVA) | payer OTHER, SELFPAY | PROVIDERS: PCP Family Medicine; Visit Provider Family Medicine | DX: I10 Essential (primary) hypertension (principal); R73.01 Impaired fasting glucose; R74.8 Abnormal levels of other serum enzymes; G47.30 Sleep apnea, unspecified; L30.9 Dermatitis, unspecified | CPT/HCPCS: 96127; 99212 ==